=== PATIENT | male | born 1975 | race Caucasian/White ===

== ENCOUNTER → 2018-11-17 | Outpatient (CLI) | payer BC ==
[~2018-11-17] MED LIST: ALOG1TAB8 PO; ASPI81TA61 PO; EMPA1TAB7 PO; GLIM2TAB2 PO; GLIM4TAB2 PO; METF100010 PO; PHEN37.53 PO
--- NOTE | 2018-11-17 11:15 | DIREP ---
PROCEDURE:XRAY SPINE LUMBAR 2-3 VWS COMPARISON:None. INDICATIONS:LOW BACK PAIN W/ SCIATICA ON RIGHT SIDE TECHNIQUE:AP, lateral, and coned down lateral views of the lumbar spine are provided. FINDINGS:The frontal view is markedly limited due to abnormal exposure. ALIGNMENT:Normal. VERTEBRAE:Normal. DISK SPACES:Mild loss of disc height at L5-S1. SPONDYLOLISTHESIS:None. SACROILIAC JOINTS:Normal. OTHER:Vascular calcifications are present CONCLUSION:Limited study due to abnormally exposed frontal view, without acute abnormality appreciated. Dictated by: Maurilio Iyer M.D. on 11/17/2018 at 11:13 AM
== END | disposition home or self-care (01) ==
LOC: RAD 10:03
PROVIDERS: ATTEND Internal Medicine
DX: M54.41 Lumbago with sciatica, right side (principal); M54.16 Radiculopathy, lumbar region
CPT/HCPCS: 72100

== ENCOUNTER 2018-12-17 05:07 | Emergency (ER) | payer OTHER ==
[~2018-12-17] VITALS: Ht 165.1 cm; Wt 159.9 kg
[2018-12-17 05:07] VITALS: BP 129/77
[~2018-12-17 05:07] MED LIST changes: -GLIM2TAB2 PO; +GLIM2TAB3 PO; -GLIM4TAB2 PO; +GLIM4TAB4 PO
--- NOTE | 2018-12-17 05:15 | NUR ---
ARRIVAL: 43 YEAR OLD MALE AMBULATES INTO ER C/O RIGHT THIGH PAIN FOR A MONTH. DR ZIMMERMAN TOLD HIM TO COME FOR AN XRAY.
[2018-12-17] MEDS ORDERED: LISI1TAB23 PO (05:40)
[2018-12-17] MEDS ORDERED: GABA600T7 PO (05:40)
[2018-12-17 06:06] VITALS: BP 138/80
[2018-12-17] MEDS ORDERED: TORADOL IM STA (06:17)
[2018-12-17] MEDS ORDERED: TORADOL ONE (06:19)
--- NOTE | 2018-12-17 06:26 | ER.PDOC ---
General Chief Complaint: Extremities Stated Complaint: LEG PAIN Time seen by MD: 06:18 Source: patient Exam Limitations: no limitations History of Present Illness Initial Comments Right thigh pain for 1 Month. No fall or injury. He told me that he saw his PCP DR. Arellano who ordered a doppler which showed some arterial occlusion. He was told he needed to see a Staining Machine Operator to have an intervention but he does not have money. He is requesting pain medicine. Severity: moderate Exacerbated By: nothing Relieved By: nothing Prior symptoms/Treatment: Similar symptoms previous, Recenly Seen, Treated by Doctor Allergies: Coded Allergies: No Known Allergies (Unverified , 04/03/16) Home Meds Reported Medications Lisinopril/Hydrochlorothiazide (LISINOPRIL-HCTZ 10-12.5 MG TAB) 1 Each Tablet, 1 TAB PO DAILY, #30 TAB 5 Refills 12/17/18 Gabapentin (GABAPENTIN) 600 Mg Tablet, 600 MG PO BID, TAB 12/17/18 Empagliflozin/Metformin HCl (Synjardy 12.5-1,000 mg Tablet) 1 Each Tablet, 1 EACH PO DAILY24, TABLET 09/14/18 Phentermine Hcl (PHENTERMINE HCL) 37.5 Mg Capsule, 37.5 MG PO DAILY24, CAPSULE 09/14/18 Metformin Hcl (METFORMIN HCL ER) 1,000 Mg Tab.er.24, 1 TAB PO BID, #90 TAB 1 Refill 12/28/17 Glimepiride (GLIMEPIRIDE) 4 Mg Tablet, 1 TAB PO BID, #180 TAB 1 Refill 12/28/17 Past Medical History Medical History: diabetes Surgical History: appendectomy LMP (females 10-50): N/A Not applicalbe Social History Smoking: non-smoker Alcohol Use: none Drug Use: none Review of Systems Constitutional: no symptoms reported Respiratory: no symptoms reported Cardiovascular: no symptoms reported Gastrointestinal: no symptoms reported Musculoskeletal: see HPI All Other Systems: Reviewed and Negative Physical Exam General Appearance: Alert, No Apparent Distress, Other (Obese) Lower Extremity: tenderness (lateral right thigh, no redness, swelling or erytherma) Joint Exam: joints nml, nml ROM, nml gait/weight bearing Vascular: no vascular compromise, pulses full/equal Neuro/Psych: sensation nml, motor nml, oriented x3, CN's nml as tested, mood/affect nml Skin: color nml, warm/dry, no rash Back/Neck: nml inspection Respiratory: no resp distress, breath sounds nml CVS: reg rate & rhythm, heart sounds nml Abdomen: non-tender, no organomegaly, no bruit/mass Results/Orders Results/Orders Orders - RUSTY BYERS MD Ketorolac Tromethamine (Toradol) (12/17/18 06:17) Vital Signs Date Time Temp Pulse Resp B/P (MAP) Pulse Ox O2 Delivery O2 Flow Rate FiO2 12/17/18 06:06 85 18 138/80 (99) 97 Room Air 12/17/18 05:07 98.0 81 18 12/17/18 05:07 98.0 81 18 99 Room Air 12/17/18 05:07 98.0 81 18 129/77 (94) 99 Room Air Progress Progress I was going to order a Venous doppler but he declined stating that he had a Sonogram of RLE done a Month ago and is looking for Money to see a Staining Machine Operator as recommended by his PCP. Departure Time of Disposition: 06:26 Disposition: 01 HOME, SELF-CARE Impression: Primary Impression: Right thigh pain Condition: Stable Referrals: LOW ARELLANO MD (PCP) PRIMARY CARE PROVIDER Additional Instructions: Ibuprofen F/U with your PCP in 1-2 days Duration or Time Spent with Pa: 30 mins RUSTY BYERS MD Dec 17, 2018 06:26
[2018-12-17 06:29] VITALS: BP 124/74
== END 2018-12-17 06:30 | disposition home or self-care (01) ==
LOC: ER 05:07
DX: M79.651 Pain in right thigh (principal); E11.9 Type 2 diabetes mellitus without complications; Z79.899 Other long term (current) drug therapy; Z90.49 Acquired absence of other specified parts of digestive tract
CPT/HCPCS: 96372; 99283; J1885

== ENCOUNTER → 2019-01-29 | Outpatient (CLI) | payer OTHER ==
[~2019-01-29] MED LIST changes: +GABA600T7 PO; +LISI1TAB23 PO
--- NOTE | 2019-01-29 14:43 | DIREP ---
PROCEDURE:XR SPINE CERVICAL COMP W/ OBLIQUES COMPARISON:[facility], CR, XRAY NECK SOFT TISSUE, 09/14/2018, 01:49 AM. [facility], CT, CT SOFT TISSUE NECK W/O, 09/13/2018, 10:41 PM. INDICATIONS:Radiculopathy, cervical region TECHNIQUE:AP, lateral, bilateral oblique, and dens views of the cervical spine are provided. FINDINGS: ALIGNMENT:Loss of the cervical lordosis. VERTEBRAE:Normal. DISK SPACES:Normal. CERVICAL RIBS:None. OTHER:Normal. CONCLUSION:Loss of cervical lordosis. Otherwise normal examination. Dictated by: Carmelo Coleman M.D. on 01/29/2019 at 02:40 PM
--- NOTE | 2019-01-29 14:46 | DIREP ---
PROCEDURE:XRAY SPINE THORACIC 3 VWS COMPARISON:[facility], CR, CHEST 2 VIEW, 07/23/2013, 02:05 PM. INDICATIONS:Pain in thoracic spine TECHNIQUE:AP & lateral views of the thoracic spine and a swimmer's view of the cervicothoracic junction are provided. FINDINGS: ALIGNMENT:Normal. VERTEBRAE:Normal. DISK SPACES:Mild disc space narrowing and small anterior osteophytes present in the lower thoracic spine. OTHER:Normal. CONCLUSION:No acute thoracic spine abnormalities. Mild DDD and spondylosis. Dictated by: Carmelo Coleman M.D. on 01/29/2019 at 02:44 PM
== END | disposition home or self-care (01) ==
LOC: RAD 12:40
PROVIDERS: ATTEND Internal Medicine
DX: M51.14 Intervertebral disc disorders with radiculopathy, thoracic region (principal); M47.24 Other spondylosis with radiculopathy, thoracic region; M40.50 Lordosis, unspecified, site unspecified
CPT/HCPCS: 72050; 72072

== ENCOUNTER → 2019-02-19 | Outpatient (CLI) | payer OTHER ==
--- NOTE | 2019-02-19 14:48 | DIREP ---
PROCEDURE:US ANKLE BRACHIAL INDEX COMPARISON:[facility], US, US ANKLE BRACHIAL INDEX, 12/21/2016, 03:49 PM. INDICATIONS:PAD TECHNIQUE:A color duplex Doppler ultrasound examination of the bilateral lower extremities was performed. Color image and bidirectional spectral Doppler wave form analysis, and peak systolic flow measurements of the posterior tibial and dorsalis pedis arteries were performed. FINDINGS: RIGHT LOWER EXTREMITY: CROW DP: 1.1. PT: 1.2. POSTERIOR TIBIAL:112.2 cm/sMonophasic DORSALIS PEDIS:91.5 cm/sTriphasic LEFT LOWER EXTREMITY: CROW DP: 1.1. PT: 1.0. POSTERIOR TIBIAL:124.8 cm/sTriphasic DORSALIS PEDIS:75.0 cm/sTriphasic CONCLUSION:Normal ankle brachial indices. ABIs greater than 1.4 indicate noncompressible vessels, likely to have significant peripheral vascular disease (PVD). ABIs of 0.91 to 1.3 indicate no significant obstructive disease. ABIs of 0.41 to 0.90 indicate grade I claudication. ABIs less than 0.4 indicate limb-threatening ischemia of grade I or grade II. Dictated by: CIARRA Physician on 02/19/2019 at 02:11 PM
== END | disposition home or self-care (01) ==
LOC: RAD 02-02 15:19
PROVIDERS: ATTEND Internal Medicine
DX: I73.9 Peripheral vascular disease, unspecified (principal)
CPT/HCPCS: 93922

== ENCOUNTER 2019-11-22 17:39 | Emergency (ER) | payer BC, OTHER ==
[~2019-11-22] VITALS: Ht 167.6 cm; Wt 154.7 kg
[2019-11-22 17:39] VITALS: BP 175/88
[~2019-11-22 17:39] MED LIST changes: -GLIM2TAB3 PO; +GLIM2TAB7 PO; -GLIM4TAB4 PO; +GLIM4TAB8 PO
--- NOTE | 2019-11-22 17:53 | PCM.EKG ---
[facility] Test Date: 2019-11-22 Test Time: 17:36:09 Pat Name: KAYDEN SOSA Department: Room: Gender: M Fitness Trainer: LILLY : 1975 Requested By: JOHNNY ESCALANTE Order Number: [id number] Reading MD: Measurements Intervals [place] Rate: 86 P: 47 MN: 175 QRS: 71 QRSD: 89 T: 45 QT: 346 QTc: 414 Interpretive Statements Sinus rhythm Compared to ECG 12/28/2017 14:48:22 No significant changes Please click the below link to view image of tracing.
--- NOTE | 2019-11-22 17:58 | ER.PDOC ---
General Chief Complaint: Requesting Medical Care Stated Complaint: DIZZINESS, CHEST PAINS, SOB, NAUSEA Time seen by MD: 19:00 Source: patient Exam Limitations: no limitations History of Present Illness Occurred: just prior to arrival Severity: mild Associated Symptoms: sense of movement, spinning Decreased Ability to Stand: off balance Usually: walks w/o assistance Allergies: Coded Allergies: No Known Allergies (Unverified , 04/03/16) Home Meds Reported Medications Lisinopril/Hydrochlorothiazide (LISINOPRIL-HCTZ 10-12.5 MG TAB) 1 Each Tablet, 1 TAB PO DAILY, #30 TAB 5 Refills 12/17/18 Gabapentin (GABAPENTIN) 600 Mg Tablet, 600 MG PO BID, TAB 12/17/18 Empagliflozin/Metformin HCl (Synjardy 12.5-1,000 mg Tablet) 1 Each Tablet, 1 EACH PO DAILY24, TABLET 09/14/18 Phentermine Hcl (PHENTERMINE HCL) 37.5 Mg Capsule, 37.5 MG PO DAILY24, CAPSULE 09/14/18 Metformin Hcl (METFORMIN HCL ER) 1,000 Mg Tab.er.24, 1 TAB PO BID, #90 TAB 1 Refill 12/28/17 Glimepiride (GLIMEPIRIDE) 4 Mg Tablet, 1 TAB PO BID, #180 TAB 1 Refill 12/28/17 Past Medical History Medical History: diabetes Surgical History: appendectomy Social History Drug Use: none Review of Systems All Other Systems: Reviewed and Negative Physical Exam General Appearance: alert, no distress EENT: nml eye inspection, PERRL, no nystagmus, nml ENT inspection, pharynx nml, TM's nml Neck: supple Respiratory: no resp distress, breath sounds nml CVS: reg rate & rhythm, heart sounds.nml Abdomen: non-tender, no organomegaly, no distention Skin: color nml, no rash, warm/dry Extremities: non-tender, nml ROM, no pedal edema Neuro/Psych: nml orientation, nml speech/cognition, nml mood/affect Cranial Nerves: nml as tested, no evidence of acute CVA Cerebellar: nml as tested Sensorimotor: nml motor, nml sensation Results/Orders Results/Orders Orders - LANETTE HARVEY DO Meclizine Hcl (Antivert) (11/22/19 19:05) Vital Signs Date Time Temp Pulse Resp B/P (MAP) Pulse Ox O2 Delivery O2 Flow Rate FiO2 11/22/19 19:35 67 20 133/63 (86) 96 Room Air 11/22/19 17:39 98.6 89 20 11/22/19 17:39 98.6 89 18 98 11/22/19 17:39 98.6 89 20 175/88 (117) 98 Room Air Administered Medications Medications (Trade) Dose Ordered Sig/Sisi Route PRN Reason Start Time Stop Time Status Last Admin Dose Admin Meclizine HCl (Antivert) 25 mg STAT STAT PO 11/22/19 17:59 11/22/19 18:00 UNV 11/22/19 18:08 25 MG Meclizine HCl (Antivert) 25 mg STAT STAT PO 11/22/19 19:05 11/22/19 19:06 DC 11/22/19 19:07 25 MG Sodium Chloride 1,000 ml @ 0 mls/hr Q0M ONCE IV 11/22/19 19:00 11/22/19 19:01 UNV 11/22/19 19:00 0 MLS/HR Laboratory Tests Test 11/22/19 17:55 11/22/19 18:10 POC Glucose 232 (70 - 110) H White Blood Count 5.5 10^3/uL (4.5-11.0) Red Blood Count 5.45 10^6/uL (4.50-5.90) Hemoglobin 15.8 g/dL (13.9-16.3) Hematocrit 46.4 % (37.0-53.0) Mean Corpuscular Volume 85.1 fL (78-100) Mean Corpuscular Hemoglobin 29.0 pg (26-34) Mean Corpuscular Hemoglobin Concent 34.1 g/dL (33-36.5) Red Cell Distribution Width 13.1 % (11.5-14.5) Platelet Count 137 10^3/uL (150-400) L Mean Platelet Volume 12.1 fL (7.8-11.0) H Neutrophils (%) (Auto) 59.9 % (41.0-85.0) Lymphocytes (%) (Auto) 28.2 % (24.0-44.0) Monocytes (%) (Auto) 8.6 % (5.0-12.0) Neutrophils # (Auto) 3.3 10^3/uL (1.8-7.7) Lymphocytes # (Auto) 1.55 10^3/uL1 (1.0-4.8) Monocytes # (Auto) 0.5 10^3/uL (0.3-0.8) Absolute Immature Granulocyte (auto 0.04 10^3 u/L (0-2) Absolute Eosinophils (auto) 0.1 10^3/uL (0.0-0.2) Immature Granulocytes % 0.70 % (0.00-0.50) H Eosinophils % 2.4 % (0.0-5.0) Basophils % 0.2 % (0.0-0.2) Basophils # 0.0 10^3/uL (0.0-0.1) Prothrombin Time 10.9 SEC (9.3-11.3) Prothrombin Time INR (Non-Therap) 1.1 Activated Partial Thromboplast Time 21.6 SEC (24.67-30.72) D-Dimer < 0.19 mg/L (0.19-0.49) L Sodium Level 135 mmol/L (132-145) Potassium Level 3.9 mmol/L (3.6-5.2) Chloride Level 100.0 mmol/L (96-109) Carbon Dioxide Level 24.5 mmol/L (20.0-32) Anion Gap 14.4 Blood Urea Nitrogen 12 mg/dL (7-18) Creatinine 0.77 mg/dL (0.59-1.40) Estimated GFR () 132.2 (>/=60) Est GFR (CKD-EPI)(Non-Afr Latvian) 109.3 (>/=60) BUN/Creatinine Ratio 15.0 Glucose Level 266 mg/dL (70-110) H Calcium Level 9.2 mg/dL (8.4-10.5) Total Bilirubin 0.8 mg/dL (0.2-1.0) Aspartate Amino Transferase (AST) 70 U/L (0-35) H Alanine Aminotransferase (ALT) 143 U/L (12-78) H Alkaline Phosphatase 131 U/L (50-136) Total Creatine Kinase 47 U/L (39-308) Creatine Kinase MB 0.7 ng/mL (0.5-3.6) Troponin I < 0.02 ng/mL (0.00-0.05) Pro-B-Type Natriuretic Peptide 17 pg/mL (0-125) Total Protein 7.1 g/dL (6.4-8.2) Albumin 4.1 g/dL (3.4-5.0) Globulin 3.0 Helicobacter pylori Screen NEGATIVE (NEGATIVE) Progress Progress TO DR CANDICE Dowd: assumed care of patient from Dr. Escalante at shift change; all labs return WAL, CXR clear, EKG NSR without STT changes; patient feeling somewhat better after 25 mg Meclizine--we will give an additional 25 mg meclizine and observe for improvement--after second dose of meclizine, patient ambulates without difficulty or c/o vertigo ER DEPART Departure Time of Disposition: 19:42 Disposition: 01 HOME, SELF-CARE Impression: Primary Impression: Benign positional vertigo Condition: Improved Patient Instructions: Benign Positional Vertigo Referrals: LOW ZIMMERMAN MD (PCP) PRIMARY CARE PROVIDER Additional Instructions: Take meclizine as prescribed for vertigo symptoms. Follow up with your doctor next week for reevaluation. Return to ER for any emergent concerns. Duration or Time Spent with Pa: 20 min Problem Qualifiers Primary Impression: Benign positional vertigo Laterality: unspecified laterality Qualified Codes: H81.10 - Benign paroxysmal vertigo, unspecified ear JOHNNY ESCALANTE MD Nov 22, 2019 17:58 LANETTE HARVEY DO Nov 22, 2019 19:09
[2019-11-22] MEDS ORDERED: ANTIVERT PO STA ×2 (17:59→19:05)
[2019-11-22] MEDS ORDERED: ANTIVERT ONE ×2 (18:05→19:05)
[2019-11-22 18:17] LABS: BASOPHIL % 0.2 % (0.0-0.2); EOSINOPHIL # 0.1 10^3/uL (0.0-0.2); EOSINOPHIL % 2.4 % (0.0-5.0); LYMPHOCYTES # 1.55 10^3/uL1 (1.0-4.8); LYMPHOCYTES % 28.2 % (24.0-44.0); MONOCYTES # 0.5 10^3/uL (0.3-0.8); MONOCYTES % 8.6 % (5.0-12.0); NEUTROPHIL # 3.3 10^3/uL (1.8-7.7); NEUTROPHILS % 59.9 % (41.0-85.0); PLATELET COUNT 137 10^3/uL (150-400); RED CELL DISTRIBUTION WIDTH 13.1 % (11.5-14.5)
--- NOTE | 2019-11-22 18:17 | NUR ---
STATUS DURING TRIAGE PT STATES HE CHECKED HIS BLOOD SUGAR 3-4 DAYS AGO AND IT WAS IN THE 300'S. STATES HE HAD QUIT TAKING ALL DM MEDS SO HE STARTED TAKING THEM AGAIN 3-4 DAYS AGO AND HAS NOT CHECKED HIS BLOOD SUGAR SINCE. FINGER STICK IS 232. HE ALSO IS NO LONGER TAKING BLOOD PRESSURE MEDS BECAUSE HE RAN OUT AND HAS NOT BEEN TO DR ZIMMERMAN'S TO GET REFILLS.
--- NOTE | 2019-11-22 18:23 | DIREP ---
PROCEDURE:CHEST 1 VIEW COMPARISON:[facility], CR, XRAY CHEST SINGLE VW, 12/28/2017, 02:17 PM. INDICATIONS:chest pain FINDINGS: LUNGS/PLEURA:No significant pulmonary parenchymal abnormalities. No effusions. VASCULATURE:Normal. Unremarkable pulmonary vasculature. CARDIAC:Normal. No cardiac silhouette abnormality or cardiomegaly. MEDIASTINUM:Normal. No visible mass or adenopathy. BONES:Normal. No fracture or visible bony lesion. OTHER:Negative. CONCLUSION:No acute cardiopulmonary disease is seen or significant interval change. Dictated by: Bassam Steele M.D. on 11/22/2019 at 06:21 PM
[2019-11-22] MEDS ORDERED: NS 1000ML 1,000 ML ONE (18:32)
--- NOTE | 2019-11-22 18:40 | NUR ---
NS PER VERBAL ORDER FROM DR. ESCALANTE, 1L NS WIDE OPEN STARTED AT THIS TIME.
[2019-11-22 18:48] LABS: ALANINE AMINOTRANSFERASE(ML) 143 U/L (12-78); ALKALINE PHOSPHATASE 131 U/L (50-136); ASPARTATE AMINO TRANSFERASE 70 U/L (0-35); CALCIUM 9.2 mg/dL (8.4-10.5); CARBON DIOXIDE 24.5 mmol/L (20.0-32); GLUCOSE 266 mg/dL (70-110)
[2019-11-22] MEDS ORDERED: NS 1000ML 1,000 ML IV ONE (19:00)
[2019-11-22 19:35] VITALS: BP 133/63
--- NOTE | 2019-11-22 19:43 | NUR ---
IV DC'D AT THIS TIME. CATHETER TIP INTACT.
== END 2019-11-22 19:49 | disposition home or self-care (01) ==
LOC: ER 17:39
DX: H81.10 Benign paroxysmal vertigo, unspecified ear (principal); R79.1 Abnormal coagulation profile
CPT/HCPCS: 36415; 71045; 80053; 82550; 82553; 82948; 83880; 84484; 85025; 85379; 85610; 85730; 86677; 93005; 96360; 99285; J7030; J8597

== ENCOUNTER 2019-12-28 11:45 | Emergency (ER) | payer BC ==
[~2019-12-28] VITALS: Ht 165.1 cm; Wt 155.1 kg
[2019-12-28 11:48] VITALS: BP 135/77
[2019-12-28 12:02] VITALS: BP 135/77
--- NOTE | 2019-12-28 12:13 | ER.PDOC ---
General Chief Complaint: Earache Stated Complaint: EAR PAIN Time seen by MD: 12:07 Source: patient Exam Limitations: no limitations History of Present Illness Initial Comments Patient c/o 3 day history of pain with drainage from right ear. Hearing is somewhat muffled. Timing/Duration: gradual Severity: moderate Location of Pain: (R) Ear Associated Symptoms: aching earache Allergies: Coded Allergies: No Known Allergies (Unverified , 04/03/16) Home Meds Reported Medications Lisinopril/Hydrochlorothiazide (LISINOPRIL-HCTZ 10-12.5 MG TAB) 1 Each Tablet, 1 TAB PO DAILY, #30 TAB 5 Refills 12/17/18 Gabapentin (GABAPENTIN) 600 Mg Tablet, 600 MG PO BID, TAB 12/17/18 Empagliflozin/Metformin HCl (Synjardy 12.5-1,000 mg Tablet) 1 Each Tablet, 1 EACH PO DAILY24, TABLET 09/14/18 Phentermine Hcl (PHENTERMINE HCL) 37.5 Mg Capsule, 37.5 MG PO DAILY24, CAPSULE 09/14/18 Metformin Hcl (METFORMIN HCL ER) 1,000 Mg Tab.er.24, 1 TAB PO BID, #90 TAB 1 Refill 12/28/17 Glimepiride (GLIMEPIRIDE) 4 Mg Tablet, 1 TAB PO BID, #180 TAB 1 Refill 12/28/17 Past Medical History Medical History: no pertinent history, diabetes Surgical History: appendectomy Family History Significant Family History: no pertinent family hx Social History Smoking: non-smoker Alcohol Use: none Drug Use: none Constitutional: no symptoms reported Eyes: no symptoms reported Ears: see HPI, clear discharge (right ear), other (muffled hearing) Nose: no symptoms reported Mouth: no symptoms reported Throat: no symptoms reported Respiratory: no symptoms reported Cardiovascular: no symptoms reported Gastrointestinal: no symptoms reported Musculoskeletal: no symptoms reported Skin: no symptoms reported Neurological: no symptoms reported Hematologic/Lymphatic: no symptoms reported Immunological/Allergic: no symptoms reported All Other Systems: Reviewed and Negative Physical Exam General Appearance: alert, no distress Ears: pain w/movement aucricle, (R) canal swelling TM's: nml (scar tissue bilateral TMs) Mouth/Throat: lips/gums nml, pharynx nml Nose: nml inspection Head/Neck: atraumatic, neck nml inspection Eyes: eyes nml inspection, PERRL, no nystagmus Resp/CVS: no resp distress, lungs clear, heart sounds nml, reg. rate & rhythm Abdomen: non-tender, no organomegaly Skin Exam: Normal Color, Warm/Dry NEURO/PSYCH: oriented X3, mood/effect nml Results/Orders Results/Orders Vital Signs Date Time Temp Pulse Resp B/P (MAP) Pulse Ox O2 Delivery O2 Flow Rate FiO2 12/28/19 12:02 98.2 84 18 135/77 (96) 98 Room Air 12/28/19 11:48 98.2 84 20 12/28/19 11:48 98.2 84 18 ER DEPART Departure Time of Disposition: 12:09 Disposition: 01 HOME, SELF-CARE Impression: Primary Impression: Otitis externa Condition: Stable Patient Instructions: Otitis Externa Referrals: LOW ZIMMERMAN MD (PCP) PRIMARY CARE PROVIDER Additional Instructions: Return to ER for any emergent concerns. Follow up with your doctor next week for reevaluation. Take antibiotics as prescribed until all gone. Duration or Time Spent with Pa: 10 min Problem Qualifiers Primary Impression: Otitis externa Otitis externa type: swimmer's ear Chronicity: acute Laterality: right Qualified Codes: H60.331 - Swimmer's ear, right ear LANETTE HARVEY DO Dec 28, 2019 12:13
== END 2019-12-28 12:26 | disposition home or self-care (01) ==
LOC: ER 11:45
DX: H60.331 Swimmer's ear, right ear (principal); Z79.84 Long term (current) use of oral hypoglycemic drugs; Z79.899 Other long term (current) drug therapy
CPT/HCPCS: 99281

== ENCOUNTER → 2020-06-22 | Outpatient (CLI) | payer BC ==
--- NOTE | 2020-06-22 11:35 | DIREP ---
PROCEDURE:CT CHEST WITH CONTRAST COMPARISON:None. INDICATIONS:R06.02 SHORTNESS OF BREATH TECHNIQUE:Helical sections through the chest were performed from the lung apices through the diaphragms without IV contrast. Sagittal and coronal reconstructions are obtained from source images. FINDINGS: LUNGS:Suspected developing infiltrate in the anterior left upper lobe. Pulmonary infarct is a differential consideration. Mild atelectasis in the right upper lobe.. No visible pulmonary disease. PLEURA:Normal. No mass or effusion. CARDIAC:Normal. No enlargement, pericardial thickening, or significant calcification. MEDIASTINUM:Normal. No mass or adenopathy. ЕКАТЕРИНА:Normal. No mass or adenopathy. AORTA:Normal. No aneurysm. CHEST WALL:Normal. No mass or axillary adenopathy. LIMITED ABDOMEN:Normal. Limited images of the upper abdomen are unremarkable. BONES:Normal. No bony lesion or fracture. OTHER:Limited opacification of the pulmonary arteries. No central pulmonary embolus. CONCLUSION:Suspected developing infiltrate in the anterior left upper lobe. Pulmonary infarction is a less likely differential consideration. No central pulmonary embolus. Dictated by: Ismael Pearson DO on 06/22/2020 at 11:23 AM
== END | disposition home or self-care (01) ==
LOC: RAD 09:21
PROVIDERS: ATTEND Nurse Practitioner Family
DX: J98.11 Atelectasis (principal)
CPT/HCPCS: 71260; Q9967

== ENCOUNTER 2021-03-20 14:30 | Emergency (ER) | payer BC ==
[~2021-03-20] VITALS: Ht 177.8 cm; Wt 149.7 kg
[~2021-03-20 14:30] MED LIST changes: -LISI1TAB23 PO; +LISI1TAB37 PO
[2021-03-20 15:10] VITALS: BP 151/80
[2021-03-20 15:43] VITALS: BP 151/80
[2021-03-20] MEDS ORDERED: PREDNISONE PO STA (15:54)
[2021-03-20] MEDS ORDERED: NORCO 10MG PO STA (15:54)
[2021-03-20] MEDS ORDERED: DECADRON IH STA (15:54)
[2021-03-20] MEDS ORDERED: DUO 0.5-3(2.5) MG/3 ML IH STA (15:54)
[2021-03-20] MEDS ORDERED: NORCO 10MG PO ONE (16:05)
[2021-03-20] MEDS ORDERED: DUO 0.5-3(2.5) MG/3 ML IH ONE (16:06)
[2021-03-20] MEDS ORDERED: DECADRON ONE (16:06)
[2021-03-20] MEDS ORDERED: PREDNISONE ONE (16:07)
--- NOTE | 2021-03-20 16:12 | ER.PDOC ---
General Chief Complaint: General Complaint Stated Complaint: COUGH,FEVER,SOB Time seen by MD: 16:00 Source: patient Exam Limitations: no limitations History of Present Illness Timing/Duration: 1 week Severity: moderate Activities at Onset: activity/exertion, rest Allergies: Coded Allergies: No Known Allergies (Unverified , 04/03/16) Home Meds Reported Medications Lisinopril/Hydrochlorothiazide (LISINOPRIL-HCTZ 10-12.5 MG TAB) 1 Each Tablet, 1 TAB PO DAILY, #30 TAB 5 Refills 12/17/18 Gabapentin (GABAPENTIN) 600 Mg Tablet, 600 MG PO BID, TAB 12/17/18 Empagliflozin/Metformin HCl (Synjardy 12.5-1,000 mg Tablet) 1 Each Tablet, 1 EACH PO DAILY24, TABLET 09/14/18 Phentermine Hcl (PHENTERMINE HCL) 37.5 Mg Capsule, 37.5 MG PO DAILY24, CAPSULE 09/14/18 Metformin Hcl (METFORMIN HCL ER) 1,000 Mg Tab.er.24, 1 TAB PO BID, #90 TAB 1 Refill 12/28/17 Glimepiride (GLIMEPIRIDE) 4 Mg Tablet, 1 TAB PO BID, #180 TAB 1 Refill 12/28/17 Past Medical History Medical History: diabetes, hypertension Surgical History: appendectomy Social History Alcohol Use: rarely Drug Use: none Reviewed Nursing Reviewed: Vital Signs, Abn. Noted Review of Systems All Other Systems: Reviewed and Negative Physical Exam General Appearance: No Apparent Distress, WD/WN HEENT: PERRL/EOMI, Normal ENT Inspection, TMs Normal, Pharynx Normal Neck: Non-Tender, Full Range of Motion, Supple, Normal Inspection Respiratory: rhonchi Cardiovascular: Normal Peripheral Pulses, Regular Rate, Rhythm, No Edema, No Gallop, No JVD, No Murmur Gastrointestinal: Normal Bowel Sounds, No Organomegaly, No Pulsatile Mass, Non Tender, Soft Extremities: Normal Range of Motion, Non-Tender, Normal Inspection, No Pedal Edema, No Calf Tenderness, Normal Capillary Refill 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, No Motor/Sensory Deficits, Alert, Normal Mood/Affect, Oriented x 3 Skin: Normal Color, Warm/Dry Lymphatic: No Adenopathy Results/Orders Results/Orders Vital Signs Date Time Temp Pulse Resp B/P (MAP) Pulse Ox O2 Delivery O2 Flow Rate FiO2 03/20/21 16:14 115 20 96 03/20/21 16:13 108 24 94 03/20/21 15:43 98.9 113 24 151/80 (103) 94 Room Air 03/20/21 15:10 98.9 113 24 03/20/21 15:10 98.9 113 24 94 Administered Medications Medications (Trade) Dose Ordered Sig/Sisi Route PRN Reason Start Time Stop Time Status Last Admin Dose Admin Acetaminophen/ Hydrocodone Bitart ([place] 10mg) 1 each STAT STAT PO 03/20/21 15:54 03/20/21 16:00 DC 03/20/21 16:10 1 EACH Albuterol/ Ipratropium (Duo 0.5-3(2.5) Mg/3 ml) 3 ml STAT STAT IH 03/20/21 15:54 03/20/21 16:00 DC 03/20/21 15:54 3 ML Prednisone (Prednisone) 20 mg STAT STAT PO 03/20/21 15:54 03/20/21 16:00 DC 03/20/21 16:11 20 MG Laboratory Tests Test 03/20/21 14:16 03/20/21 15:36 White Blood Count 8.0 10^3/uL (4.5-11.0) Red Blood Count 5.29 10^6/uL (4.50-5.90) Hemoglobin 14.9 g/dL (13.9-16.3) Hematocrit 47.1 % (37.0-53.0) Mean Corpuscular Volume 89.0 fL (78-100) Mean Corpuscular Hemoglobin 28.2 pg (26-34) Mean Corpuscular Hemoglobin Concent 31.6 g/dL (33-36.5) L Red Cell Distribution Width 13.4 % (11.5-14.5) Platelet Count 154 10^3/uL (150-400) Mean Platelet Volume 10.5 fL (7.8-11.0) Neutrophils (%) (Auto) 74.6 % (41.0-85.0) Lymphocytes (%) (Auto) 13.9 % (24.0-44.0) L Monocytes (%) (Auto) 9.0 % (5.0-12.0) Neutrophils # (Auto) 6.0 10^3/uL (1.8-7.7) Lymphocytes # (Auto) 1.11 10^3/uL1 (1.0-4.8) Monocytes # (Auto) 0.7 10^3/uL (0.3-0.8) Absolute Immature Granulocyte (auto 0.07 10^3 u/L (0-2) Absolute Eosinophils (auto) 0.1 10^3/uL (0.0-0.2) Immature Granulocytes % 0.90 % (0.00-0.50) H Eosinophils % 1.5 % (0.0-5.0) Basophils % 0.1 % (0.0-0.2) Basophils # 0.0 10^3/uL (0.0-0.1) Prothrombin Time 10.5 SEC (9.6-12.0) Prothrombin Time INR (Non-Therap) 1.0 Activated Partial Thromboplast Time 23.4 SEC (24.67-30.72) D-Dimer 0.35 mg/L (0.19-0.49) Sodium Level 135 mmol/L (132-145) Potassium Level 3.8 mmol/L (3.6-5.2) Chloride Level 98.0 mmol/L (96-109) Carbon Dioxide Level 24.5 mmol/L (20.0-32) Anion Gap 16.3 Blood Urea Nitrogen 17 mg/dL (7-18) Creatinine 0.77 mg/dL (0.59-1.40) Estimated GFR () 131.6 (>/=60) Est GFR (CKD-EPI)(Non-Afr [place]an) 108.8 (>/=60) BUN/Creatinine Ratio 22.0 Glucose Level 131 mg/dL (70-110) H Calcium Level 8.7 mg/dL (8.4-10.5) Total Bilirubin 0.6 mg/dL (0.2-1.0) Aspartate Amino Transferase (AST) 32 U/L (0-35) Alanine Aminotransferase (ALT) 65 U/L (12-78) Alkaline Phosphatase 88 U/L (50-136) Total Creatine Kinase 124 U/L (39-308) Creatine Kinase MB < 0.5 ng/mL (0.5-3.6) L Troponin I High Sensitivity 5 ng/L (0-75) Pro-B-Type Natriuretic Peptide 9 pg/mL (0-125) Total Protein 7.5 g/dL (6.4-8.2) Albumin 3.2 g/dL (3.4-5.0) L Globulin 4.3 Albumin/Globulin Ratio 0.744 Influenza Type A Antigen NEGATIVE (NEG) Influenza Type B Antigen NEGATIVE (NEG) SARS-CoV-2 Antigen (Rapid) POSITIVE (NEGATIVE) *A Progress Progress to dr moore ER DEPART Departure Time of Disposition: 17:45 Disposition: 01 HOME / SELF CARE / HOMELESS Impression: Primary Impression: COVID-19 Additional Impression: Viral syndrome Condition: Stable Referrals: GOVIND IVERSON APRN,KALSOMINER-C (PCP) PRIMARY CARE PROVIDER Duration or Time Spent with Pa: 10 Problem Qualifiers JOHNNY ESCALANTE MD Mar 20, 2021 16:12 BERNARD MOORE MD Mar 20, 2021 17:46
--- NOTE | 2021-03-20 16:27 | PCM.EKG ---
[facility] Test Date: 2021-03-20 Test Time: 16:23:12 Pat Name: KAYDEN SOSA Department: Patient ID: [facility]-[id number] Room: Gender: M Clutch Specialist: LELA : 1975 Requested By: KANG MCMANUS Order Number: [id number] Reading MD: Kang Mcmanus Measurements Intervals [place] Rate: 115 P: 26 VT: 161 QRS: 59 QRSD: 84 T: 6 QT: 299 QTc: 414 Interpretive Statements Sinus tachycardia Compared to ECG 11/22/2019 17:36:09 Sinus rhythm no longer present Electronically Signed On 03-21-2021 4:00:15 LOAN OPERATIONS MANAGER by Kang Mcmanus Please click the below link to view image of tracing.
--- NOTE | 2021-03-20 16:32 | DIREP ---
PROCEDURE:CHEST 1 VIEW COMPARISON:[facility], CT, CT CHEST W/CONTRAST, 06/22/2020, 10:08 AM. [facility], CR, XRAY CHEST SINGLE VW, 11/22/2019, 05:50 PM. INDICATIONS:Chest pain FINDINGS: LUNGS/PLEURA:Scarring in the left upper lobe. No other significant pulmonary parenchymal abnormalities. No effusions. VASCULATURE:Normal. Unremarkable pulmonary vasculature. CARDIAC:Normal. No cardiac silhouette abnormality or cardiomegaly. MEDIASTINUM:Normal. No visible mass or adenopathy. BONES:Normal. No fracture or visible bony lesion. OTHER:Negative. CONCLUSION:No acute cardiopulmonary abnormalities. Scarring in the left upper lobe. Dictated by: Carmelo Coleman M.D. on 03/20/2021 at 04:29 PM
[2021-03-20 16:52] LABS: BASOPHIL % 0.1 % (0.0-0.2); EOSINOPHIL # 0.1 10^3/uL (0.0-0.2); EOSINOPHIL % 1.5 % (0.0-5.0); LYMPHOCYTES # 1.11 10^3/uL1 (1.0-4.8); LYMPHOCYTES % 13.9 % (24.0-44.0); MEAN CORP HGB 28.2 pg (26-34); MONOCYTES # 0.7 10^3/uL (0.3-0.8); NEUTROPHILS % 74.6 % (41.0-85.0); PLATELET COUNT 154 10^3/uL (150-400); RED CELL DISTRIBUTION WIDTH 13.4 % (11.5-14.5)
[2021-03-20 17:25] LABS: CARBON DIOXIDE 24.5 mmol/L (20.0-32); GLUCOSE 131 mg/dL (70-110)
[2021-03-20 18:12] VITALS: BP 143/78
== END 2021-03-20 18:06 | disposition home or self-care (01) ==
LOC: ER 14:30
DX: U07.1 COVID-19 (principal); E11.9 Type 2 diabetes mellitus without complications; I10 Essential (primary) hypertension; Z79.52 Long term (current) use of systemic steroids; Z79.84 Long term (current) use of oral hypoglycemic drugs; Z79.899 Other long term (current) drug therapy; Z90.49 Acquired absence of other specified parts of digestive tract
CPT/HCPCS: 36415; 71045; 80053; 82550; 82553; 83880; 84484; 85025; 85379; 85610; 85730; 87426; 87804 ×2; 93005; 94640; 99284; J1100; J7512

== ENCOUNTER 2021-03-23 13:50 | Inpatient (IN) | payer BC ==
[~2021-03-23] VITALS: Ht 162.6 cm; Wt 151.8 kg
--- NOTE | 2021-03-23 13:59 | NUR ---
Pt amublates to ED rm5. c/o decrease 02 sat at home, worsening sob with bodyaches to lethargy. Tested covid + in this ED on 03/21/19.
[2021-03-23 14:18] VITALS: BP 140/82
[2021-03-23 14:30] LABS: BASOPHIL % 0.1 % (0.0-0.2); EOSINOPHIL # 0.1 10^3/uL (0.0-0.2); LYMPHOCYTES # 0.48 10^3/uL1 (1.0-4.8); LYMPHOCYTES % 5.3 % (24.0-44.0); MEAN CORP HGB 27.9 pg (26-34); MONOCYTES # 0.6 10^3/uL (0.3-0.8); MONOCYTES % 6.4 % (5.0-12.0); NEUTROPHIL # 7.8 10^3/uL (1.8-7.7); NEUTROPHILS % 86.4 % (41.0-85.0); PLATELET COUNT 166 10^3/uL (150-400); RED CELL DISTRIBUTION WIDTH 13.2 % (11.5-14.5)
--- NOTE | 2021-03-23 14:30 | NUR ---
placed oxygen on pt. 2Lnc. 02 sat increase to 91%. has seen pt. orders received.
--- NOTE | 2021-03-23 14:39 | DIREP ---
PROCEDURE:CHEST 1 VIEW COMPARISON:[facility], CR, XRAY CHEST SINGLE VW, 03/20/2021, 04:11 PM. INDICATIONS:hypoxia, covid+ FINDINGS: LUNGS/PLEURA:Patchy bilateral ground-glass infiltrates, right greater than left. This has worsened compared to prior study. No pleural effusion pneumothorax. VASCULATURE:Normal. Unremarkable pulmonary vasculature. CARDIAC:Normal. No cardiac silhouette abnormality or cardiomegaly. MEDIASTINUM:Normal. No visible mass or adenopathy. BONES:Degenerative change without evidence of acute osseus abnormality. OTHER:Negative. CONCLUSION: 1. Findings consistent with multifocal pneumonia, worsened compared to prior study. Commonly reported imaging findings of COVID-19 pneumonia are present. Dictated by: Gary Dee MD on 03/23/2021 at 02:37 PM
[2021-03-23 14:55] LABS: ABG PCO2 29.2 mmHg (35.0-45.0); ABG PH 7.547 (7.350-7.450); BE(B) 3.4 mmol/L (-2.0-2.0); HCO3act 24.8 mmol/L (22.0-26.0); pO2 56.9 mmHg (80.0-100.0)
[2021-03-23 15:06] LABS: CARBON DIOXIDE 26.4 mmol/L (20.0-32)
--- NOTE | 2021-03-23 16:25 | ER.PDOC ---
General Chief Complaint: Requesting Medical Care Stated Complaint: LOW O2/FEVER/CHEST PAIN/COVID + Time seen by MD: 13:48 Source: patient Exam Limitations: no limitations History of Present Illness Initial Comments pt is here with covid hypoxia. He was diagnosed with covid on Saturday and over the last few days has been getting worse on breathing. He is on cpap at night and over the last few days, he is having a hard time keeping up with his breath. OXygen saturation was 84% on bipap at home but now on 2L wiht a saturation of 91-92% Timing/Duration: gradual Severity: moderate Associated Symptoms: fever/chills, runny nose Worsen By: deep breathing Prior symptoms/Treatment: Recenly Seen Allergies: Coded Allergies: No Known Allergies (Unverified , 04/03/16) Home Meds Reported Medications Lisinopril/Hydrochlorothiazide (LISINOPRIL-HCTZ 10-12.5 MG TAB) 1 Each Tablet, 1 TAB PO DAILY, #30 TAB 5 Refills 12/17/18 Gabapentin (GABAPENTIN) 600 Mg Tablet, 600 MG PO BID, TAB 12/17/18 Empagliflozin/Metformin HCl (Synjardy 12.5-1,000 mg Tablet) 1 Each Tablet, 1 EACH PO DAILY24, TABLET 09/14/18 Phentermine Hcl (PHENTERMINE HCL) 37.5 Mg Capsule, 37.5 MG PO DAILY24, CAPSULE 09/14/18 Metformin Hcl (METFORMIN HCL ER) 1,000 Mg Tab.er.24, 1 TAB PO BID, #90 TAB 1 Refill 12/28/17 Glimepiride (GLIMEPIRIDE) 4 Mg Tablet, 1 TAB PO BID, #180 TAB 1 Refill 12/28/17 Constitutional: chills, fever Respiratory: cough Cardiovascular: no symptoms reported Gastrointestinal: no symptoms reported Genitourinary: no symptoms reported Musculoskeletal: no symptoms reported Skin: no symptoms reported Psychiatric/Neurological: no symptoms reported Endocrine: no symptoms reported All Other Systems: Reviewed and Negative Past Medical History Medical History: COPD, diabetes, high cholesterol, hypertension Surgical History: appendectomy Social History Alcohol Use: none Drug Use: none Reviewed Nursing Reviewed: Vital Signs, Abn. Noted, Nursing Assessment Physical Exam General Appearance: alert, moderate distress Eye: eyes nml inspection Nose: nose nml, rhinorrhea Throat: pharynx nml, airway nml Neck: nml inspection, supple Respiratory: respiratory distress Abdomen: non-tender CVS: reg rate & rhythm Extremities: non-tender Results/Orders Results/Orders Orders - CARLOS THACKER MD Arterial Blood Gas (03/23/21 14:02) Cbc With Auto Diff (03/23/21 14:02) Comprehensive Metabolic Panel (03/23/21 14:02) Xr Chest 1v (03/23/21 14:02) Ekg-Routine (03/23/21 14:02) Troponin I High Sensitivity (03/23/21 14:02) Probnp B-Type Accounting Tutor (03/23/21 14:02) Ferritin(Ml) (03/23/21 14:29) D-Dimer (03/23/21 14:59) Vital Signs Date Time Temp Pulse Resp B/P (MAP) Pulse Ox O2 Delivery O2 Flow Rate FiO2 03/23/21 14:18 99.3 101 24 86 Room Air 03/23/21 14:18 99.3 101 24 03/23/21 14:18 99.3 101 24 86 Laboratory Tests Test 03/23/21 14:24 03/23/21 14:43 White Blood Count 9.0 10^3/uL (4.5-11.0) Red Blood Count 5.13 10^6/uL (4.50-5.90) Hemoglobin 14.3 g/dL (13.9-16.3) Hematocrit 46.1 % (37.0-53.0) Mean Corpuscular Volume 89.9 fL (78-100) Mean Corpuscular Hemoglobin 27.9 pg (26-34) Mean Corpuscular Hemoglobin Concent 31.0 g/dL (33-36.5) L Red Cell Distribution Width 13.2 % (11.5-14.5) Platelet Count 166 10^3/uL (150-400) Mean Platelet Volume 11.1 fL (7.8-11.0) H Neutrophils (%) (Auto) 86.4 % (41.0-85.0) H Lymphocytes (%) (Auto) 5.3 % (24.0-44.0) *L Monocytes (%) (Auto) 6.4 % (5.0-12.0) Neutrophils # (Auto) 7.8 10^3/uL (1.8-7.7) H Lymphocytes # (Auto) 0.48 10^3/uL1 (1.0-4.8) L Monocytes # (Auto) 0.6 10^3/uL (0.3-0.8) Absolute Immature Granulocyte (auto 0.07 10^3 u/L (0-2) Absolute Eosinophils (auto) 0.1 10^3/uL (0.0-0.2) Immature Granulocytes % 0.80 % (0.00-0.50) H Eosinophils % 1.0 % (0.0-5.0) Basophils % 0.1 % (0.0-0.2) Basophils # 0.0 10^3/uL (0.0-0.1) D-Dimer 0.50 mg/L (0.19-0.49) H Sodium Level 132 mmol/L (132-145) Potassium Level 4.3 mmol/L (3.6-5.2) Chloride Level 99.0 mmol/L (96-109) Carbon Dioxide Level 26.4 mmol/L (20.0-32) Anion Gap 10.9 Blood Urea Nitrogen 14 mg/dL (7-18) Creatinine 0.80 mg/dL (0.59-1.40) Estimated GFR () 125.9 (>/=60) Est GFR (CKD-EPI)(Non-Afr [place]inean) 104.1 (>/=60) BUN/Creatinine Ratio 17.0 Glucose Level 165 mg/dL (70-110) H Calcium Level 9.0 mg/dL (8.4-10.5) Ferritin 1383 ng/mL (26-388) H Total Bilirubin 0.9 mg/dL (0.2-1.0) Aspartate Amino Transferase (AST) 54 U/L (0-35) H Alanine Aminotransferase (ALT) 86 U/L (12-78) H Alkaline Phosphatase 110 U/L (50-136) Troponin I High Sensitivity 6 ng/L (0-75) Pro-B-Type Natriuretic Peptide 34 pg/mL (0-125) Total Protein 7.7 g/dL (6.4-8.2) Albumin 2.9 g/dL (3.4-5.0) L Globulin 4.8 Albumin/Globulin Ratio 0.604 Blood Gas Sample Site RT BRACIAL ARTERY Blood pH 7.547 (7.350-7.450) Blood Gas PCO2 29.2 mmHg (35.0-45.0) L Blood Gas PO2 56.9 mmHg (80.0-100.0) L Blood Gas HCO3 24.8 mmol/L (22.0-26.0) Blood Gas Base Excess 3.4 mmol/L (-2.0-2.0) H Hemanth Test N/A Arterial Blood Oxygen Saturation 91.2 % (94.0-97.00) L Deoxyhemoglobin 8.7 % (0.0-5.0) H Carboxyhemoglobin 0.8 % (0.0-3.9) Methemoglobin 0.1 % (0.00-5.0) Total Hemoglobin 14.7 % (12.0-17.8) Total Oxygen Concentration 18.7 % (13.5-17.5) H Blood Gas Temperature 37 Oxygen Delivery Method NASAL CANNULA FiO2 28 % (20-101) Total Carbon Dioxide 25.7 mmol/L (23-27) Reason/Comments: discuss case with Dr. Rodriguez and he agrees to admit. REc bipap placement ER DEPART Departure Time of Disposition: 16:20 Disposition: 09 ADMITTED INPATIENT Impression: Primary Impression: COVID Additional Impression: Acute respiratory failure with hypoxia Condition: Critical Referrals: RANDY ARAGON RUG HOOKER (PCP) PRIMARY CARE PROVIDER Duration or Time Spent with Pa: 22 Critical Care Note Total Time (mins): 57 Comments placed on 2L oxygen and then on bipap per hospitalist Problem Qualifiers CARLOS THACKER MD Mar 23, 2021 16:25
[2021-03-23 16:41] LABS: LYMPHOCYTE 11 % (25-36); MONOCYTE 4 % (3-9); SEGMENTED NEUTROPHILS 85 % (31-76)
--- NOTE | 2021-03-23 16:46 | NUR ---
Report given to Marta MUNSON Pt transport to MS floor rm 312 via bed. Addendum: 03/23/21 at 1707 by ARIA Taken to room 312 via wc on 3Lnc. RT transport bipap upon arrival to room [facility]
--- NOTE | 2021-03-23 17:14 | PCM.EKG ---
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
[2021-03-23 18:09] VITALS: BP 134/83
[2021-03-23 20:00] VITALS: BP 136/66
[2021-03-23] MEDS ORDERED: REMDESIVIR (EUA) 200 MG in NS 100ML 100 ML IV SCH (21:00)
[2021-03-23] MEDS: VITAMIN C PO SCH (22:27)
[2021-03-23] MEDS: DEXAMETHASONE 10 MG/ML VIAL IV SCH (22:27)
[2021-03-23] MEDS: LOVENOX SQ SCH (22:28)
[2021-03-23] MEDS: HUMALOG SQ SCH (22:44)
[2021-03-23] MEDS ORDERED: NS 100ML 100 ML IV ONE ×2 (22:46→22:50)
[2021-03-24 00:23] VITALS: BP 97/49
[2021-03-24 04:23] VITALS: BP 120/59
--- NOTE | 2021-03-24 05:02 | NUR ---
Pt requested to transition back to DC for the day. Transition completed per request. tamiko Addendum: 03/24/21 at 0502 by BARBARA WHEATLEY Amended: Links added.
[2021-03-24 05:38] LABS: BASOPHIL % 0.2 % (0.0-0.2); EOSINOPHIL % 0.1 % (0.0-5.0); LYMPHOCYTES # 0.61 10^3/uL1 (1.0-4.8); LYMPHOCYTES % 7.5 % (24.0-44.0); MEAN CORP HGB 28.5 pg (26-34); MONOCYTES # 0.4 10^3/uL (0.3-0.8); MONOCYTES % 4.5 % (5.0-12.0); NEUTROPHIL # 7.1 10^3/uL (1.8-7.7); NEUTROPHILS % 87.7 % (41.0-85.0); PLATELET COUNT 171 10^3/uL (150-400); RED CELL DISTRIBUTION WIDTH 12.9 % (11.5-14.5)
[2021-03-24 07:22] VITALS: BP 139/77
[2021-03-24] MEDS: HUMALOG SQ SCH ×3 (08:00→17:42)
[2021-03-24] MEDS ORDERED: DEXAMETHASONE 10 MG/ML VIAL IV SCH (09:00)
[2021-03-24] MEDS: LASIX IV SCH (09:44)
[2021-03-24] MEDS: DEXAMETHASONE 10 MG/ML VIAL IV SCH (09:44)
[2021-03-24] MEDS: ASPIRIN PO SCH (09:44)
[2021-03-24] MEDS: VITAMIN C PO SCH ×2 (09:44→20:56)
[2021-03-24] MEDS: LANTUS SQ SCH (09:45)
[2021-03-24] MEDS: ZITHROMAX PO SCH (09:45)
[2021-03-24] MEDS: ZINC SULFATE PO SCH (09:45)
--- NOTE | 2021-03-24 11:15 | PCM.HP ---
History of Present Illness Hx of Present Illness Patient is a 45-year-old male obese with medical history of diabetes mellitus type 2 presented to the emergency department with increasing shortness of breath and persistent cough along with generalized weakness, body aches and chills denies any fever. Was recently tested positive for COVID-19 infection and has been doing home remedies but has started to feel very dizzy and weak was seen recently in the emergency department about 4 days ago and discharged home at that time he was not requiring any oxygen. But upon presentation to the emergency department patient was hypoxic requiring oxygen and was therefore placed on oxygen therapy and admitted to the medical floor for further evaluation and management. Travel History EBOLA RISK:Travel to/contact w: No Review of Systems Constitutional: Chills, Weakness, Malaise ENT: Throat pain Respiratory: Cough, Shortness of breath, SOB with excertion Other All other review of systems are negative Allergies: Coded Allergies: No Known Allergies (Unverified , 04/03/16) Scheduled Gabapentin (Gabapentin), 600 MG PO BID, (Reported) Glimepiride (Glimepiride), 1 TAB PO BID, (Reported) Lisinopril/Hydrochlorothiazide (Lisinopril-Hctz 10-12.5 Mg Tab), 1 TAB PO DAILY, (Reported) Metformin Hcl (Metformin Hcl), 1 TAB PO BID, (Reported) Phentermine Hcl (Phentermine Hcl), 37.5 MG PO DAILY24, (Reported) Discontinued Medications Empagliflozin/Metformin HCl (Synjardy 12.5-1,000 mg Tablet), 1 EACH PO DAILY24, (Reported) Discontinued Reason: Discontinue VTE VTE Risk Total Score: 4 VTE Risk Score VTE Risk: Score 0-1 = Low Risk (Aggressive mobilization; early ambulation; no VTE prophylaxis required) Score 2: Moderate Risk (Intermittent/Pneumatic Compression Device OR Lovenox/Heparin/Coumadin) Score 3-4: High Risk (Intermittent/Pneumatic Compression Device AND Lovenox/Heparin/Coumadin) Score > or =5: Highest Risk (Intermittent/Pneumatic Compression Device AND Lovenox/Heparin/Coumadin) VTE VTE Present on Admission: Yes Currently receiving anticoagul: No VTE Risk Total Score: 4 Exam Vital Signs Vital Signs Date Time Temp Pulse Resp B/P (MAP) Pulse Ox O2 Delivery O2 Flow Rate FiO2 03/24/21 09:44 139/77 03/24/21 08:15 87 20 87 Nasal Cannula 4.00 36 03/24/21 07:22 98.9 General Appearance: Alert, Oriented X3, Cooperative HEENT: Atraumatic, PERRLA, EOMI Respiratory: Other (Decreased bilateral lung sounds) Cardiovascular: Regular rate, Normal S1, Normal S2, No murmurs Abdominal: Normal bowel sounds, Soft, No tenderness Extremities: No clubbing, No cyanosis, No edema Skin: No breakdown, No lesions Neuro: Normal gait, Normal speech, Strength at 5/5 X4 ext, Normal tone Psych/Mental Status: Mental status NL, Mood NL Assessment/Plan Assessment/Plan Assessment/Plan COVID-19 infection pneumonia Acute hypoxic respiratory failure Obesity Placing patient at risk of prolonging management and treatment. Diabetes mellitus type 2 Continue with remdesivir Steroid therapy dexamethasone 6 mg daily Zinc sulfate to 20 mg daily Ascorbic acid 500 mg twice daily Aspirin Anticoagulation with Lovenox 40 mg subcutaneous daily Oxygen therapy continue to maintain oxygenation above 92% Patient History: FH: cancer G8 SISTER Hypertension No Family History of: Alzheimer's disease Asthma Cerebrovascular disorder Chronic obstructive pulmonary disease Congestive heart failure Diabetes insipidus Diabetes mellitus Parkinson's disease BERNARD MOORE MD Mar 24, 2021 11:15
[2021-03-24] MEDS ORDERED: NEURONTIN PO SCH (11:30)
[2021-03-24 11:41] VITALS: BP 126/79
[2021-03-24] MEDS ORDERED: NEURONTIN ONE (11:58)
[2021-03-24] MEDS ORDERED: AMARYL PO SCH (14:00)
[2021-03-24] MEDS ORDERED: METF10007 PO (15:19)
[2021-03-24 15:26] VITALS: BP 132/78
[2021-03-24] MEDS ORDERED: GLUCOPHAGE XR PO SCH (17:00)
--- NOTE | 2021-03-24 18:42 | NUR ---
REPORT REPORT GIVEN TO ONCOMING SHIFT. RELINQUISHED CARE FOR PATIENT AT THIS TIME.
[2021-03-24] MEDS ORDERED: NS 250ML 250 ML ONE (20:35)
[2021-03-24 20:45] VITALS: BP 173/87
[2021-03-24] MEDS: REMDESIVIR (EUA) 100 MG in NS 100ML 100 ML IV SCH (20:49)
[2021-03-24] MEDS: GLUCOPHAGE PO SCH (20:55)
[2021-03-24] MEDS: NEURONTIN PO SCH (20:55)
[2021-03-24] MEDS: AMARYL PO SCH (20:55)
[2021-03-24] MEDS: LOVENOX SQ SCH (20:56)
[2021-03-25 00:18] VITALS: BP 172/90
[2021-03-25] MEDS: APRESOLINE IV PRN ×2 (00:21→15:49)
[2021-03-25 04:00] VITALS: BP 164/96
[2021-03-25 07:35] LABS: BASOPHIL % 0.3 % (0.0-0.2); LYMPHOCYTES # 0.93 10^3/uL1 (1.0-4.8); LYMPHOCYTES % 9.8 % (24.0-44.0); MEAN CORP HGB 28.4 pg (26-34); MONOCYTES # 0.8 10^3/uL (0.3-0.8); MONOCYTES % 8.3 % (5.0-12.0); NEUTROPHIL # 7.8 10^3/uL (1.8-7.7); NEUTROPHILS % 81.6 % (41.0-85.0); PLATELET COUNT 215 10^3/uL (150-400); RED CELL DISTRIBUTION WIDTH 12.9 % (11.5-14.5)
[2021-03-25 07:49] LABS: CARBON DIOXIDE 23.2 mmol/L (20.0-32)
[2021-03-25] MEDS: HUMALOG SQ SCH ×3 (08:00→19:41)
[2021-03-25] MEDS: VITAMIN C PO SCH ×2 (08:42→21:04)
[2021-03-25] MEDS: ASPIRIN PO SCH (08:42)
[2021-03-25] MEDS: GLUCOPHAGE PO SCH ×2 (08:42→21:03)
[2021-03-25] MEDS: ZITHROMAX PO SCH (08:43)
[2021-03-25] MEDS: ZESTRIL PO SCH (08:43)
[2021-03-25] MEDS: NEURONTIN PO SCH ×2 (08:43→21:04)
[2021-03-25] MEDS: HYDROCHLOROTHIAZIDE PO SCH (08:43)
[2021-03-25] MEDS: LASIX IV SCH (08:45)
[2021-03-25] MEDS: ZINC SULFATE PO SCH (08:46)
[2021-03-25] MEDS: AMARYL PO SCH ×2 (08:46→21:02)
[2021-03-25] MEDS: DEXAMETHASONE 10 MG/ML VIAL IV SCH (08:46)
[2021-03-25] MEDS: LANTUS SQ SCH (09:00)
[2021-03-25 09:02] LABS: BAND NEUTROPHILS 1 % (2-6); LYMPHOCYTE 12 % (25-36); MONOCYTE 9 % (3-9); SEGMENTED NEUTROPHILS 77 % (31-76)
[2021-03-25] MEDS ORDERED: LANOLIN HYDROUS TP ONE (09:53)
--- NOTE | 2021-03-25 10:23 | PRM.PN ---
Subjective Subjective Date: Mar 25, 2021 Time: 09:30 Subjective Patient who is a 45-year-old obese patient who was admitted for COVID-pneumonia and acute hypoxic respiratory failure. Patient is seen and examined this morning still requiring oxygen therapy. Patient History: FH: cancer G8 SISTER Hypertension No Family History of: Alzheimer's disease Asthma Cerebrovascular disorder Chronic obstructive pulmonary disease Congestive heart failure Diabetes insipidus Diabetes mellitus Parkinson's disease VTE VTE Risk Total Score: 4 VTE Risk Score VTE Risk: Score 0-1 = Low Risk (Aggressive mobilization; early ambulation; no VTE prophylaxis required) Score 2: Moderate Risk (Intermittent/Pneumatic Compression Device OR Lovenox/Heparin/Coumadin) Score 3-4: High Risk (Intermittent/Pneumatic Compression Device AND Lovenox/Heparin/Coumadin) Score > or =5: Highest Risk (Intermittent/Pneumatic Compression Device AND Lovenox/Heparin/Coumadin) Review of Systems Constitutional: Chills, Weakness, Malaise ENT: Throat pain Respiratory: Cough, Shortness of breath, SOB with excertion Allergies: Coded Allergies: No Known Allergies (Unverified , 04/03/16) Scheduled Gabapentin (Gabapentin), 600 MG PO BID, (Reported) Glimepiride (Glimepiride), 1 TAB PO BID, (Reported) Lisinopril/Hydrochlorothiazide (Lisinopril-Hctz 10-12.5 Mg Tab), 1 TAB PO DAILY, (Reported) Metformin Hcl (Metformin Hcl), 1 TAB PO BID, (Reported) Phentermine Hcl (Phentermine Hcl), 37.5 MG PO DAILY24, (Reported) Discontinued Medications Empagliflozin/Metformin HCl (Synjardy 12.5-1,000 mg Tablet), 1 EACH PO DAILY24, (Reported) Discontinued Reason: Discontinue Objective Vitals and I/O Vital Sign - Last 24 Hours 03/25/21 03/25/21 03/25/21 03/25/21 08:43 08:43 08:45 09:43 Temp 98.6 Resp 19 B/P (MAP) 164/96 164/96 164/96 General: Alert, Oriented X3, Cooperative HEENT: Atraumatic, PERRLA, EOMI Lungs: Other (Decreased bilateral lung sounds) Heart: Regular rate, Normal S1, Normal S2, No murmurs Abdomen: Normal bowel sounds, Soft, No tenderness Extremities: No clubbing, No cyanosis, No edema Neuro: Normal gait, Normal speech, Strength at 5/5 X4 ext, Normal tone Psych/Mental Status: Mental status NL, Mood NL All Results(Lab/Rad) Laboratory Tests Test 03/24/21 11:37 03/24/21 16:36 03/24/21 20:54 03/25/21 00:11 Bedside Glucose 244 251 301 252 Test 03/25/21 06:18 03/25/21 06:35 03/25/21 07:37 Bedside Glucose 147 White Blood Count 9.5 10^3/uL Red Blood Count 5.25 10^6/uL Hemoglobin 14.9 g/dL Hematocrit 46.5 % Mean Corpuscular Volume 88.6 fL Mean Corpuscular Hemoglobin 28.4 pg Mean Corpuscular Hemoglobin Concent 32.0 g/dL Red Cell Distribution Width 12.9 % Platelet Count 215 10^3/uL Mean Platelet Volume 11.4 fL Neutrophils (%) (Auto) 81.6 % Lymphocytes (%) (Auto) 9.8 % Monocytes (%) (Auto) 8.3 % Neutrophils # (Auto) 7.8 10^3/uL Lymphocytes # (Auto) 0.93 10^3/uL1 Monocytes # (Auto) 0.8 10^3/uL Absolute Immature Granulocyte (auto 0.13 10^3 u/L Absolute Eosinophils (auto) 0.0 10^3/uL Immature Granulocytes % 1.40 % Eosinophils % 0.0 % Basophils % 0.3 % Basophils # 0.0 10^3/uL Sodium Level 132 mmol/L Potassium Level 4.2 mmol/L Chloride Level 99.0 mmol/L Carbon Dioxide Level 23.2 mmol/L Glucose Level 147 mg/dL Blood Urea Nitrogen 20 mg/dL Creatinine 0.66 mg/dL Calcium Level 9.4 mg/dL Anion Gap 14.0 Estimated GFR () 157.2 Est GFR (CKD-EPI)(Non-Afr Bol[place]ian) 129.9 BUN/Creatinine Ratio 30.0 Differential Total Cells Counted 100 #CELLS Segmented Neutrophils 77 % Band Neutrophils 1 % Lymphocytes 12 % Monocytes 9 % Atypical Lymphocytes 1 % Platelet Estimate ADEQUATE Platelet Morphology NORMAL Blood Morphology Comment NORMAL MORPHOLOGY Current Medications Medications (Trade) Dose Ordered Sig/Sisi Route PRN Reason Start Time Stop Time Status Last Admin Dose Admin Remdesivir 200 mg/ Sodium Chloride 140 ml @ 120.69 mls/ hr OT IV 03/23/21 21:00 03/24/21 18:28 DC 03/23/21 23:09 Insulin Human Lispro (Humalog) TIDM SQ 03/23/21 21:00 04/22/21 20:59 03/24/21 17:42 Ascorbic Acid (Vitamin C) 500 mg BID PO 03/23/21 21:00 04/22/21 20:59 03/25/21 08:42 Zinc Sulfate (Zinc Sulfate) 220 mg DAILY PO 03/24/21 09:00 04/23/21 08:59 03/25/21 08:46 Azithromycin (Zithromax) 250 mg DAILY PO 03/24/21 09:00 04/23/21 08:59 03/25/21 08:43 Enoxaparin Sodium (Lovenox) 40 mg Q24HRS SQ 03/23/21 21:00 04/22/21 20:59 03/24/21 20:56 Aspirin (Aspirin) 81 mg DAILY PO 03/24/21 09:00 04/23/21 08:59 03/25/21 08:42 Furosemide (Lasix) 20 mg DAILY IV 03/24/21 09:00 04/23/21 08:59 03/25/21 08:45 Insulin Glargine (Lantus) 25 unit DAILY SQ 03/24/21 09:00 04/23/21 08:59 03/24/21 09:45 Sodium Chloride 100 ml @ ud STK-MED ONCE IV 03/23/21 22:46 03/23/21 22:47 DC Sodium Chloride 100 ml @ ud STK-MED ONCE IV 03/23/21 22:50 03/23/21 22:50 DC Remdesivir 100 mg/ Sodium Chloride 120 ml @ 120 mls/hr HS IV 03/24/21 21:00 03/27/21 21:59 03/24/21 20:49 Gabapentin (Neurontin) 600 mg BID PO 03/24/21 11:30 03/24/21 12:34 DC 03/24/21 12:03 Gabapentin (Neurontin) 300 mg STK-MED ONCE .ROUTE 03/24/21 11:58 03/24/21 11:59 DC Gabapentin (Neurontin) 600 mg BID PO 03/24/21 15:00 04/23/21 14:59 03/25/21 08:43 Metformin HCl (Glucophage Xr) 1,000 mg BIDM PO 03/24/21 17:00 03/24/21 15:21 DC Lisinopril (Zestril) 10 mg DAILY PO 03/25/21 09:00 04/24/21 08:59 03/25/21 08:43 Hydrochlorothiazide (Hydrochlorothiazide) 12.5 mg DAILY PO 03/25/21 09:00 04/24/21 08:59 03/25/21 08:43 Glimepiride (Amaryl) 4 mg BID PO 03/24/21 14:00 03/24/21 16:12 DC Metformin HCl (Glucophage) 1,000 mg BID PO 03/24/21 21:00 04/23/21 20:59 03/25/21 08:42 Glimepiride (Amaryl) 4 mg BID PO 03/24/21 21:00 04/23/21 20:59 03/25/21 08:46 Sodium Chloride 250 ml @ ud STK-MED ONCE .ROUTE 03/24/21 20:35 03/24/21 20:35 DC Melatonin (Melatonin) 3 mg HS PRN PO INSOMNIA 03/25/21 00:00 04/24/21 00:00 Hydralazine HCl (Apresoline) 10 mg Q4HR PRN IV HYPERTENSION 03/25/21 00:00 04/24/21 00:00 03/25/21 00:21 Lanolin (Lanolin Hydrous) 28 gm STK-MED ONCE TP 03/25/21 09:53 03/25/21 09:53 DC Course Sepsis Screening Results: Posi: POSITIVE Sepsis Qualifier/Stage: SEPSIS RISK Duration or Total Time Spent w: 22 Vitals & review Data Vital Sign - Last 24 Hours 03/25/21 03/25/21 03/25/21 03/25/21 08:43 08:43 08:45 09:43 Temp 98.6 Resp 19 B/P (MAP) 164/96 164/96 164/96 Laboratory Tests Test 03/23/21 14:24 03/23/21 14:31 03/23/21 14:43 03/24/21 04:51 White Blood Count 9.0 10^3/uL 8.1 10^3/uL Red Blood Count 5.13 10^6/uL 5.06 10^6/uL Hemoglobin 14.3 g/dL 14.4 g/dL Hematocrit 46.1 % 44.3 % Mean Corpuscular Volume 89.9 fL 87.5 fL Mean Corpuscular Hemoglobin 27.9 pg 28.5 pg Mean Corpuscular Hemoglobin Concent 31.0 g/dL 32.5 g/dL Red Cell Distribution Width 13.2 % 12.9 % Platelet Count 166 10^3/uL 171 10^3/uL Mean Platelet Volume 11.1 fL 11.3 fL Neutrophils (%) (Auto) 86.4 % 87.7 % Lymphocytes (%) (Auto) 5.3 % 7.5 % Monocytes (%) (Auto) 6.4 % 4.5 % Neutrophils # (Auto) 7.8 10^3/uL 7.1 10^3/uL Lymphocytes # (Auto) 0.48 10^3/uL1 0.61 10^3/uL1 Monocytes # (Auto) 0.6 10^3/uL 0.4 10^3/uL Absolute Immature Granulocyte (auto 0.07 10^3 u/L 0.09 10^3 u/L Absolute Eosinophils (auto) 0.1 10^3/uL 0.0 10^3/uL Immature Granulocytes % 0.80 % 1.10 % Eosinophils % 1.0 % 0.1 % Basophils % 0.1 % 0.2 % Basophils # 0.0 10^3/uL 0.0 10^3/uL D-Dimer 0.50 mg/L Sodium Level 132 mmol/L 135 mmol/L Potassium Level 4.3 mmol/L 4.3 mmol/L Chloride Level 99.0 mmol/L 98.0 mmol/L Carbon Dioxide Level 26.4 mmol/L 24.0 mmol/L Anion Gap 10.9 17.3 Blood Urea Nitrogen 14 mg/dL 13 mg/dL Creatinine 0.80 mg/dL 0.73 mg/dL Estimated GFR () 125.9 140.0 Est GFR (CKD-EPI)(Non-Afr Bol[place]ian) 104.1 115.7 BUN/Creatinine Ratio 17.0 17.0 Glucose Level 165 mg/dL 181 mg/dL Calcium Level 9.0 mg/dL 9.1 mg/dL Ferritin 1383 ng/mL Total Bilirubin 0.9 mg/dL Aspartate Amino Transf (AST/SGOT) 54 U/L Alanine Aminotransferase (ALT/SGPT) 86 U/L Alkaline Phosphatase 110 U/L Troponin I High Sensitivity 6 ng/L Pro-B-Type Natriuretic Peptide 34 pg/mL Total Protein 7.7 g/dL Albumin 2.9 g/dL Globulin 4.8 Albumin/Globulin Ratio 0.604 Differential Total Cells Counted 100 #CELLS Segmented Neutrophils 85 % Lymphocytes 11 % Monocytes 4 % Platelet Estimate ADEQUATE Platelet Morphology NORMAL Blood Gas Sample Site RT BRACIAL ARTERY Blood Gas pH 7.547 Blood Gas PCO2 29.2 mmHg Blood Gas PO2 56.9 mmHg Blood Gas HCO3 24.8 mmol/L Blood Gas Base Excess 3.4 mmol/L Hemanth Test N/A Arterial Blood Oxygen Saturation 91.2 % Deoxyhemoglobin 8.7 % Carboxyhemoglobin 0.8 % Methemoglobin 0.1 % Total Hemoglobin 14.7 % Total Oxygen Concentration 18.7 % Blood Gas Temperature 37 Oxygen Delivery Method (LAB) NASAL CANNULA FiO2 28 % Total Carbon Dioxide 25.7 mmol/L C-Reactive Protein 26.11 mg/dL Test 03/24/21 11:37 03/24/21 16:36 03/24/21 20:54 03/25/21 00:11 Bedside Glucose 244 251 301 252 Test 03/25/21 06:18 03/25/21 06:35 03/25/21 07:37 Bedside Glucose 147 White Blood Count 9.5 10^3/uL Red Blood Count 5.25 10^6/uL Hemoglobin 14.9 g/dL Hematocrit 46.5 % Mean Corpuscular Volume 88.6 fL Mean Corpuscular Hemoglobin 28.4 pg Mean Corpuscular Hemoglobin Concent 32.0 g/dL Red Cell Distribution Width 12.9 % Platelet Count 215 10^3/uL Mean Platelet Volume 11.4 fL Neutrophils (%) (Auto) 81.6 % Lymphocytes (%) (Auto) 9.8 % Monocytes (%) (Auto) 8.3 % Neutrophils # (Auto) 7.8 10^3/uL Lymphocytes # (Auto) 0.93 10^3/uL1 Monocytes # (Auto) 0.8 10^3/uL Absolute Immature Granulocyte (auto 0.13 10^3 u/L Absolute Eosinophils (auto) 0.0 10^3/uL Immature Granulocytes % 1.40 % Eosinophils % 0.0 % Basophils % 0.3 % Basophils # 0.0 10^3/uL Sodium Level 132 mmol/L Potassium Level 4.2 mmol/L Chloride Level 99.0 mmol/L Carbon Dioxide Level 23.2 mmol/L Glucose Level 147 mg/dL Blood Urea Nitrogen 20 mg/dL Creatinine 0.66 mg/dL Calcium Level 9.4 mg/dL Anion Gap 14.0 Estimated GFR () 157.2 Est GFR (CKD-EPI)(Non-Afr [place]ian) 129.9 BUN/Creatinine Ratio 30.0 Differential Total Cells Counted 100 #CELLS Segmented Neutrophils 77 % Band Neutrophils 1 % Lymphocytes 12 % Monocytes 9 % Atypical Lymphocytes 1 % Platelet Estimate ADEQUATE Platelet Morphology NORMAL Blood Morphology Comment NORMAL MORPHOLOGY Current Medications Medications (Trade) Dose Ordered Sig/Sisi PRN Reason Start Time Stop Time Status Last Admin Ascorbic Acid (Vitamin C) 500 mg BID 03/23/21 21:00 04/22/21 20:59 03/25/21 08:42 Aspirin (Aspirin) 81 mg DAILY 03/24/21 09:00 04/23/21 08:59 03/25/21 08:42 Azithromycin (Zithromax) 250 mg DAILY 03/24/21 09:00 04/23/21 08:59 03/25/21 08:43 Enoxaparin Sodium (Lovenox) 40 mg Q24HRS 03/23/21 21:00 04/22/21 20:59 03/24/21 20:56 Furosemide (Lasix) 20 mg DAILY 03/24/21 09:00 04/23/21 08:59 03/25/21 08:45 Gabapentin (Neurontin) 600 mg BID 03/24/21 15:00 04/23/21 14:59 03/25/21 08:43 Glimepiride (Amaryl) 4 mg BID 03/24/21 21:00 04/23/21 20:59 03/25/21 08:46 Hydralazine HCl (Apresoline) 10 mg Q4HR PRN HYPERTENSION 03/25/21 00:00 04/24/21 00:00 03/25/21 00:21 Hydrochlorothiazide (Hydrochlorothiazide) 12.5 mg DAILY 03/25/21 09:00 04/24/21 08:59 03/25/21 08:43 Insulin Glargine (Lantus) 25 unit DAILY 03/24/21 09:00 04/23/21 08:59 03/24/21 09:45 Insulin Human Lispro (Humalog) TIDM 03/23/21 21:00 04/22/21 20:59 03/24/21 17:42 Lisinopril (Zestril) 10 mg DAILY 03/25/21 09:00 04/24/21 08:59 03/25/21 08:43 Melatonin (Melatonin) 3 mg HS PRN INSOMNIA 03/25/21 00:00 04/24/21 00:00 Metformin HCl (Glucophage) 1,000 mg BID 03/24/21 21:00 04/23/21 20:59 03/25/21 08:42 Remdesivir 100 mg/ Sodium Chloride 120 ml @ 120 mls/hr HS 03/24/21 21:00 03/27/21 21:59 03/24/21 20:49 Zinc Sulfate (Zinc Sulfate) 220 mg DAILY 03/24/21 09:00 04/23/21 08:59 03/25/21 08:46 Sepsis Infection Criteria Pres: None LEVEL 1 SEPSIS INFECTION CRITE: Cough/Shortness of Breath LEVEL 2-SIRS (LIST ALL THAT AP: None/Not assessed Cardiovascular Evidence: Not Assessed or None Hematologic Evidence: None/Not assessed Hepatic Evidence: None/Not assessed Metabolic Evidence: None/Not assessed Neurological Evidence: None/Not assessed Respiratory Evidence: Acute Resp failure, Need for O2 to keep>90%, O2 SAT<90room air Renal Evidence: None/Not assessed O2 Sat by Pulse Oximetry: 94 Oxygen Flow Rate: 4.00 Assessment/Plan Assessment/Plan Assessment/Plan COVID-19 infection pneumonia Acute hypoxic respiratory failure Obesity Placing patient at risk of prolonging management and treatment. Diabetes mellitus type 2 Continue with remdesivir Steroid therapy dexamethasone 6 mg daily Zinc sulfate to 20 mg daily Ascorbic acid 500 mg twice daily Aspirin Anticoagulation with Lovenox 40 mg subcutaneous daily Oxygen therapy continue to maintain oxygenation above 92% BERNARD MOORE MD Mar 25, 2021 10:23
[2021-03-25 11:23] VITALS: BP 167/84
[2021-03-25 15:07] VITALS: BP 182/105
[2021-03-25] MEDS: REMDESIVIR (EUA) 100 MG in NS 100ML 100 ML IV SCH (21:01)
[2021-03-25] MEDS: LOVENOX SQ SCH (21:09)
[2021-03-25 21:19] VITALS: BP 151/103
[2021-03-25] MEDS ORDERED: APRESOLINE ONE (23:30)
[2021-03-26] MEDS: APRESOLINE IV PRN (00:45)
[2021-03-26 04:00] VITALS: BP 144/86
[2021-03-26 06:31] LABS: BASOPHIL % 0.1 % (0.0-0.2); LYMPHOCYTES # 1.61 10^3/uL1 (1.0-4.8); LYMPHOCYTES % 9.6 % (24.0-44.0); MONOCYTES # 1.7 10^3/uL (0.3-0.8); NEUTROPHIL # 13.4 10^3/uL (1.8-7.7); NEUTROPHILS % 80.3 % (41.0-85.0); PLATELET COUNT 319 10^3/uL (150-400)
[2021-03-26 06:37] LABS: CARBON DIOXIDE 21.8 mmol/L (20.0-32)
[2021-03-26 07:53] VITALS: BP 131/108
[2021-03-26] MEDS: HUMALOG SQ SCH ×4 (08:00→21:59)
[2021-03-26] MEDS: LANTUS SQ SCH (09:00)
[2021-03-26] MEDS: DEXAMETHASONE 10 MG/ML VIAL IV SCH (10:44)
[2021-03-26] MEDS: ZINC SULFATE PO SCH (10:44)
[2021-03-26] MEDS: LASIX IV SCH (10:44)
[2021-03-26] MEDS: VITAMIN C PO SCH ×2 (10:45→21:39)
[2021-03-26] MEDS: GLUCOPHAGE PO SCH ×2 (10:45→21:39)
[2021-03-26] MEDS: AMARYL PO SCH ×2 (10:46→22:03)
[2021-03-26] MEDS: ZESTRIL PO SCH (10:47)
[2021-03-26] MEDS: HYDROCHLOROTHIAZIDE PO SCH (10:47)
[2021-03-26] MEDS: ZITHROMAX PO SCH (10:47)
[2021-03-26] MEDS: NEURONTIN PO SCH ×2 (10:47→21:39)
[2021-03-26] MEDS: ASPIRIN PO SCH (10:47)
--- NOTE | 2021-03-26 11:07 | PRM.PN ---
Subjective Subjective Date: Mar 26, 2021 Time: 11:26 Subjective Patient currently on 4 L nasal cannula discussed finishing hospital for specific medications and if able to stay on low-flow nasal cannula could be discharged with home oxygen in few days. Patient is in agreement with this plan Patient History: FH: cancer G8 SISTER Hypertension No Family History of: Alzheimer's disease Asthma Cerebrovascular disorder Chronic obstructive pulmonary disease Congestive heart failure Diabetes insipidus Diabetes mellitus Parkinson's disease VTE VTE Risk Total Score: 4 VTE Risk Score VTE Risk: Score 0-1 = Low Risk (Aggressive mobilization; early ambulation; no VTE prophylaxis required) Score 2: Moderate Risk (Intermittent/Pneumatic Compression Device OR Lovenox/Heparin/Coumadin) Score 3-4: High Risk (Intermittent/Pneumatic Compression Device AND Lovenox/Heparin/Coumadin) Score > or =5: Highest Risk (Intermittent/Pneumatic Compression Device AND Lovenox/Heparin/Coumadin) Review of Systems Constitutional: Chills, Weakness, Malaise Eyes: No: Pain, Vision change, Conjunctivae inflammation, Eyelid inflammation, Other, Redness ENT: Throat pain; No: Ear pain, Ear discharge, Nose pain, Nose discharge, Nose congestion, Mouth pain, Mouth swelling, Throat swelling, Other Respiratory: Cough, Shortness of breath, SOB with excertion Cardiovascular: No: Chest Pain, Palpitations, Orthopnea, Paroxysmal Noc. Dyspnea, Edema, Lt Headedness, Other Gastrointestinal: No: Nausea, Vomiting, Abdominal Pain, Diarrhea, Constipation, Melena, Hematochezia, Other Genitourinary: No Dysuria, No Frequency, No Incontinence, No Hematuria, No Retention, No Other Musculoskeletal: No: other, neck pain, shoulder pain, arm pain, back pain, hand pain, leg pain, foot pain Skin: No: Rash, Lesions, Jaundice, Bruising, Other Neurological: No: Weakness, Numbness, Incoordination, Change in speech, Confusion, Seizures, Other Allergies: Coded Allergies: No Known Allergies (Unverified , 04/03/16) Scheduled Gabapentin (Gabapentin), 600 MG PO BID, (Reported) Glimepiride (Glimepiride), 1 TAB PO BID, (Reported) Lisinopril/Hydrochlorothiazide (Lisinopril-Hctz 10-12.5 Mg Tab), 1 TAB PO DAILY, (Reported) Metformin Hcl (Metformin Hcl), 1 TAB PO BID, (Reported) Phentermine Hcl (Phentermine Hcl), 37.5 MG PO DAILY24, (Reported) Discontinued Medications Empagliflozin/Metformin HCl (Synjardy 12.5-1,000 mg Tablet), 1 EACH PO DAILY24, (Reported) Discontinued Reason: Discontinue Objective Vitals and I/O Vital Sign - Last 24 Hours 03/26/21 03/26/21 03/26/21 03/26/21 07:53 08:28 10:44 10:47 Temp 98.6 Pulse 118 109 Resp 20 20 B/P (MAP) 131/108 (116) 131/108 131/108 Pulse Ox 87 O2 Delivery Nasal Canula Nasal Cannula O2 Flow Rate 4.00 4.00 FiO2 36 General: Alert, Oriented X3, Cooperative HEENT: Atraumatic, PERRLA, EOMI Neck: Supple Lungs: Other (Decreased bilateral lung sounds) Heart: Regular rate, Normal S1, Normal S2, No murmurs Abdomen: Normal bowel sounds, Soft, No tenderness Extremities: No clubbing, No cyanosis, No edema Skin: No breakdown Neuro: Normal gait, Normal speech, Strength at 5/5 X4 ext, Normal tone Psych/Mental Status: Mental status NL, Mood NL All Results(Lab/Rad) Laboratory Tests Test 03/24/21 11:37 03/24/21 16:36 03/24/21 20:54 03/25/21 00:11 Bedside Glucose 244 251 301 252 Test 03/25/21 06:18 03/25/21 06:35 03/25/21 07:37 Bedside Glucose 147 White Blood Count 9.5 10^3/uL Red Blood Count 5.25 10^6/uL Hemoglobin 14.9 g/dL Hematocrit 46.5 % Mean Corpuscular Volume 88.6 fL Mean Corpuscular Hemoglobin 28.4 pg Mean Corpuscular Hemoglobin Concent 32.0 g/dL Red Cell Distribution Width 12.9 % Platelet Count 215 10^3/uL Mean Platelet Volume 11.4 fL Neutrophils (%) (Auto) 81.6 % Lymphocytes (%) (Auto) 9.8 % Monocytes (%) (Auto) 8.3 % Neutrophils # (Auto) 7.8 10^3/uL Lymphocytes # (Auto) 0.93 10^3/uL1 Monocytes # (Auto) 0.8 10^3/uL Absolute Immature Granulocyte (auto 0.13 10^3 u/L Absolute Eosinophils (auto) 0.0 10^3/uL Immature Granulocytes % 1.40 % Eosinophils % 0.0 % Basophils % 0.3 % Basophils # 0.0 10^3/uL Sodium Level 132 mmol/L Potassium Level 4.2 mmol/L Chloride Level 99.0 mmol/L Carbon Dioxide Level 23.2 mmol/L Glucose Level 147 mg/dL Blood Urea Nitrogen 20 mg/dL Creatinine 0.66 mg/dL Calcium Level 9.4 mg/dL Anion Gap 14.0 Estimated GFR () 157.2 Est GFR (CKD-EPI)(Non-Afr Citizen Of [place]) 129.9 BUN/Creatinine Ratio 30.0 Differential Total Cells Counted 100 #CELLS Segmented Neutrophils 77 % Band Neutrophils 1 % Lymphocytes 12 % Monocytes 9 % Atypical Lymphocytes 1 % Platelet Estimate ADEQUATE Platelet Morphology NORMAL Blood Morphology Comment NORMAL MORPHOLOGY Current Medications Medications (Trade) Dose Ordered Sig/Sisi Route PRN Reason Start Time Stop Time Status Last Admin Dose Admin Remdesivir 200 mg/ Sodium Chloride 140 ml @ 120.69 mls/ hr OT IV 03/23/21 21:00 03/24/21 18:28 DC 03/23/21 23:09 Insulin Human Lispro (Humalog) TIDM SQ 03/23/21 21:00 04/22/21 20:59 03/24/21 17:42 Ascorbic Acid (Vitamin C) 500 mg BID PO 03/23/21 21:00 04/22/21 20:59 03/25/21 08:42 Zinc Sulfate (Zinc Sulfate) 220 mg DAILY PO 03/24/21 09:00 04/23/21 08:59 03/25/21 08:46 Azithromycin (Zithromax) 250 mg DAILY PO 03/24/21 09:00 04/23/21 08:59 03/25/21 08:43 Enoxaparin Sodium (Lovenox) 40 mg Q24HRS SQ 03/23/21 21:00 04/22/21 20:59 03/24/21 20:56 Aspirin (Aspirin) 81 mg DAILY PO 03/24/21 09:00 04/23/21 08:59 03/25/21 08:42 Furosemide (Lasix) 20 mg DAILY IV 03/24/21 09:00 04/23/21 08:59 03/25/21 08:45 Insulin Glargine (Lantus) 25 unit DAILY SQ 03/24/21 09:00 04/23/21 08:59 03/24/21 09:45 Sodium Chloride 100 ml @ ud STK-MED ONCE IV 03/23/21 22:46 03/23/21 22:47 DC Sodium Chloride 100 ml @ ud STK-MED ONCE IV 03/23/21 22:50 03/23/21 22:50 DC Remdesivir 100 mg/ Sodium Chloride 120 ml @ 120 mls/hr HS IV 03/24/21 21:00 03/27/21 21:59 03/24/21 20:49 Gabapentin (Neurontin) 600 mg BID PO 03/24/21 11:30 03/24/21 12:34 DC 03/24/21 12:03 Gabapentin (Neurontin) 300 mg STK-MED ONCE .ROUTE 03/24/21 11:58 03/24/21 11:59 DC Gabapentin (Neurontin) 600 mg BID PO 03/24/21 15:00 04/23/21 14:59 03/25/21 08:43 Metformin HCl (Glucophage Xr) 1,000 mg BIDM PO 03/24/21 17:00 03/24/21 15:21 DC Lisinopril (Zestril) 10 mg DAILY PO 03/25/21 09:00 04/24/21 08:59 03/25/21 08:43 Hydrochlorothiazide (Hydrochlorothiazide) 12.5 mg DAILY PO 03/25/21 09:00 04/24/21 08:59 03/25/21 08:43 Glimepiride (Amaryl) 4 mg BID PO 03/24/21 14:00 03/24/21 16:12 DC Metformin HCl (Glucophage) 1,000 mg BID PO 03/24/21 21:00 04/23/21 20:59 03/25/21 08:42 Glimepiride (Amaryl) 4 mg BID PO 03/24/21 21:00 04/23/21 20:59 03/25/21 08:46 Sodium Chloride 250 ml @ ud STK-MED ONCE .ROUTE 03/24/21 20:35 03/24/21 20:35 DC Melatonin (Melatonin) 3 mg HS PRN PO INSOMNIA 03/25/21 00:00 04/24/21 00:00 Hydralazine HCl (Apresoline) 10 mg Q4HR PRN IV HYPERTENSION 03/25/21 00:00 04/24/21 00:00 03/25/21 00:21 Lanolin (Lanolin Hydrous) 28 gm STK-MED ONCE TP 03/25/21 09:53 03/25/21 09:53 DC Course Sepsis Screening Results: Posi: POSITIVE Sepsis Qualifier/Stage: SEPSIS RISK Duration or Total Time Spent w: 22 Vitals & review Data Vital Sign - Last 24 Hours 03/25/21 03/25/21 03/25/21 03/25/21 08:43 08:43 08:45 09:43 Temp 98.6 Resp 19 B/P (MAP) 164/96 164/96 164/96 Laboratory Tests Test 03/23/21 14:24 03/23/21 14:31 03/23/21 14:43 03/24/21 04:51 White Blood Count 9.0 10^3/uL 8.1 10^3/uL Red Blood Count 5.13 10^6/uL 5.06 10^6/uL Hemoglobin 14.3 g/dL 14.4 g/dL Hematocrit 46.1 % 44.3 % Mean Corpuscular Volume 89.9 fL 87.5 fL Mean Corpuscular Hemoglobin 27.9 pg 28.5 pg Mean Corpuscular Hemoglobin Concent 31.0 g/dL 32.5 g/dL Red Cell Distribution Width 13.2 % 12.9 % Platelet Count 166 10^3/uL 171 10^3/uL Mean Platelet Volume 11.1 fL 11.3 fL Neutrophils (%) (Auto) 86.4 % 87.7 % Lymphocytes (%) (Auto) 5.3 % 7.5 % Monocytes (%) (Auto) 6.4 % 4.5 % Neutrophils # (Auto) 7.8 10^3/uL 7.1 10^3/uL Lymphocytes # (Auto) 0.48 10^3/uL1 0.61 10^3/uL1 Monocytes # (Auto) 0.6 10^3/uL 0.4 10^3/uL Absolute Immature Granulocyte (auto 0.07 10^3 u/L 0.09 10^3 u/L Absolute Eosinophils (auto) 0.1 10^3/uL 0.0 10^3/uL Immature Granulocytes % 0.80 % 1.10 % Eosinophils % 1.0 % 0.1 % Basophils % 0.1 % 0.2 % Basophils # 0.0 10^3/uL 0.0 10^3/uL D-Dimer 0.50 mg/L Sodium Level 132 mmol/L 135 mmol/L Potassium Level 4.3 mmol/L 4.3 mmol/L Chloride Level 99.0 mmol/L 98.0 mmol/L Carbon Dioxide Level 26.4 mmol/L 24.0 mmol/L Anion Gap 10.9 17.3 Blood Urea Nitrogen 14 mg/dL 13 mg/dL Creatinine 0.80 mg/dL 0.73 mg/dL Estimated GFR () 125.9 140.0 Est GFR (CKD-EPI)(Non-Afr Citizen Of [place]) 104.1 115.7 BUN/Creatinine Ratio 17.0 17.0 Glucose Level 165 mg/dL 181 mg/dL Calcium Level 9.0 mg/dL 9.1 mg/dL Ferritin 1383 ng/mL Total Bilirubin 0.9 mg/dL Aspartate Amino Transf (AST/SGOT) 54 U/L Alanine Aminotransferase (ALT/SGPT) 86 U/L Alkaline Phosphatase 110 U/L Troponin I High Sensitivity 6 ng/L Pro-B-Type Natriuretic Peptide 34 pg/mL Total Protein 7.7 g/dL Albumin 2.9 g/dL Globulin 4.8 Albumin/Globulin Ratio 0.604 Differential Total Cells Counted 100 #CELLS Segmented Neutrophils 85 % Lymphocytes 11 % Monocytes 4 % Platelet Estimate ADEQUATE Platelet Morphology NORMAL Blood Gas Sample Site RT BRACIAL ARTERY Blood Gas pH 7.547 Blood Gas PCO2 29.2 mmHg Blood Gas PO2 56.9 mmHg Blood Gas HCO3 24.8 mmol/L Blood Gas Base Excess 3.4 mmol/L Hemanth Test N/A Arterial Blood Oxygen Saturation 91.2 % Deoxyhemoglobin 8.7 % Carboxyhemoglobin 0.8 % Methemoglobin 0.1 % Total Hemoglobin 14.7 % Total Oxygen Concentration 18.7 % Blood Gas Temperature 37 Oxygen Delivery Method (LAB) NASAL CANNULA FiO2 28 % Total Carbon Dioxide 25.7 mmol/L C-Reactive Protein 26.11 mg/dL Test 03/24/21 11:37 03/24/21 16:36 03/24/21 20:54 03/25/21 00:11 Bedside Glucose 244 251 301 252 Test 03/25/21 06:18 03/25/21 06:35 03/25/21 07:37 Bedside Glucose 147 White Blood Count 9.5 10^3/uL Red Blood Count 5.25 10^6/uL Hemoglobin 14.9 g/dL Hematocrit 46.5 % Mean Corpuscular Volume 88.6 fL Mean Corpuscular Hemoglobin 28.4 pg Mean Corpuscular Hemoglobin Concent 32.0 g/dL Red Cell Distribution Width 12.9 % Platelet Count 215 10^3/uL Mean Platelet Volume 11.4 fL Neutrophils (%) (Auto) 81.6 % Lymphocytes (%) (Auto) 9.8 % Monocytes (%) (Auto) 8.3 % Neutrophils # (Auto) 7.8 10^3/uL Lymphocytes # (Auto) 0.93 10^3/uL1 Monocytes # (Auto) 0.8 10^3/uL Absolute Immature Granulocyte (auto 0.13 10^3 u/L Absolute Eosinophils (auto) 0.0 10^3/uL Immature Granulocytes % 1.40 % Eosinophils % 0.0 % Basophils % 0.3 % Basophils # 0.0 10^3/uL Sodium Level 132 mmol/L Potassium Level 4.2 mmol/L Chloride Level 99.0 mmol/L Carbon Dioxide Level 23.2 mmol/L Glucose Level 147 mg/dL Blood Urea Nitrogen 20 mg/dL Creatinine 0.66 mg/dL Calcium Level 9.4 mg/dL Anion Gap 14.0 Estimated GFR () 157.2 Est GFR (CKD-EPI)(Non-Afr Citizen Of [place]) 129.9 BUN/Creatinine Ratio 30.0 Differential Total Cells Counted 100 #CELLS Segmented Neutrophils 77 % Band Neutrophils 1 % Lymphocytes 12 % Monocytes 9 % Atypical Lymphocytes 1 % Platelet Estimate ADEQUATE Platelet Morphology NORMAL Blood Morphology Comment NORMAL MORPHOLOGY Current Medications Medications (Trade) Dose Ordered Sig/Sisi PRN Reason Start Time Stop Time Status Last Admin Ascorbic Acid (Vitamin C) 500 mg BID 03/23/21 21:00 04/22/21 20:59 03/25/21 08:42 Aspirin (Aspirin) 81 mg DAILY 03/24/21 09:00 04/23/21 08:59 03/25/21 08:42 Azithromycin (Zithromax) 250 mg DAILY 03/24/21 09:00 04/23/21 08:59 03/25/21 08:43 Enoxaparin Sodium (Lovenox) 40 mg Q24HRS 03/23/21 21:00 04/22/21 20:59 03/24/21 20:56 Furosemide (Lasix) 20 mg DAILY 03/24/21 09:00 04/23/21 08:59 03/25/21 08:45 Gabapentin (Neurontin) 600 mg BID 03/24/21 15:00 04/23/21 14:59 03/25/21 08:43 Glimepiride (Amaryl) 4 mg BID 03/24/21 21:00 04/23/21 20:59 03/25/21 08:46 Hydralazine HCl (Apresoline) 10 mg Q4HR PRN HYPERTENSION 03/25/21 00:00 04/24/21 00:00 03/25/21 00:21 Hydrochlorothiazide (Hydrochlorothiazide) 12.5 mg DAILY 03/25/21 09:00 04/24/21 08:59 03/25/21 08:43 Insulin Glargine (Lantus) 25 unit DAILY 03/24/21 09:00 04/23/21 08:59 03/24/21 09:45 Insulin Human Lispro (Humalog) TIDM 03/23/21 21:00 04/22/21 20:59 03/24/21 17:42 Lisinopril (Zestril) 10 mg DAILY 03/25/21 09:00 04/24/21 08:59 03/25/21 08:43 Melatonin (Melatonin) 3 mg HS PRN INSOMNIA 03/25/21 00:00 04/24/21 00:00 Metformin HCl (Glucophage) 1,000 mg BID 03/24/21 21:00 04/23/21 20:59 03/25/21 08:42 Remdesivir 100 mg/ Sodium Chloride 120 ml @ 120 mls/hr HS 03/24/21 21:00 03/27/21 21:59 03/24/21 20:49 Zinc Sulfate (Zinc Sulfate) 220 mg DAILY 03/24/21 09:00 04/23/21 08:59 03/25/21 08:46 Sepsis Infection Criteria Pres: None LEVEL 1 SEPSIS INFECTION CRITE: Cough/Shortness of Breath LEVEL 2-SIRS (LIST ALL THAT AP: None/Not assessed Cardiovascular Evidence: Not Assessed or None Hematologic Evidence: None/Not assessed Hepatic Evidence: None/Not assessed Metabolic Evidence: None/Not assessed Neurological Evidence: None/Not assessed Respiratory Evidence: Acute Resp failure, Need for O2 to keep>90%, O2 SAT<90room air Renal Evidence: None/Not assessed O2 Sat by Pulse Oximetry: 87 Oxygen Flow Rate: 4.00 Assessment/Plan Assessment/Plan Assessment/Plan COVID-19 infection pneumonia Acute hypoxic respiratory failure Obesity Placing patient at risk of prolonging management and treatment. Diabetes mellitus type 2 Continue with remdesivir Steroid therapy dexamethasone 6 mg daily Zinc sulfate to 20 mg daily Ascorbic acid 500 mg twice daily Aspirin Anticoagulation with Lovenox 40 mg subcutaneous daily Oxygen therapy continue to maintain oxygenation above 92% FULL CODE KANDY ROONEY MD Mar 26, 2021 11:07
[2021-03-26 11:32] VITALS: BP 144/90
[2021-03-26 15:21] VITALS: BP 142/88
[2021-03-26 20:01] VITALS: BP 131/66
[2021-03-26] MEDS: REMDESIVIR (EUA) 100 MG in NS 100ML 100 ML IV SCH (21:38)
[2021-03-26] MEDS: LOVENOX SQ SCH (22:03)
[2021-03-26 23:10] VITALS: BP 127/86
[2021-03-27 04:10] VITALS: BP 113/70
[2021-03-27 06:31] LABS: BASOPHIL % 0.2 % (0.0-0.2); EOSINOPHIL % 0.1 % (0.0-5.0); LYMPHOCYTES # 1.37 10^3/uL1 (1.0-4.8); MEAN CORP HGB 28.3 pg (26-34); MONOCYTES % 9.9 % (5.0-12.0); NEUTROPHIL # 8.1 10^3/uL (1.8-7.7); NEUTROPHILS % 76.8 % (41.0-85.0); PLATELET COUNT 270 10^3/uL (150-400); RED CELL DISTRIBUTION WIDTH 13.1 % (11.5-14.5)
[2021-03-27 06:49] LABS: CARBON DIOXIDE 26.4 mmol/L (20.0-32)
[2021-03-27] MEDS: LANTUS SQ SCH (08:12)
[2021-03-27] MEDS: HUMALOG SQ SCH ×4 (08:30→21:00)
[2021-03-27 08:35] LABS: LYMPHOCYTE 17 % (25-36); MONOCYTE 12 % (3-9); SEGMENTED NEUTROPHILS 71 % (31-76)
[2021-03-27] MEDS: DEXAMETHASONE 10 MG/ML VIAL IV SCH (08:40)
[2021-03-27] MEDS: ASPIRIN PO SCH (08:41)
[2021-03-27] MEDS: AMARYL PO SCH ×2 (08:41→21:01)
[2021-03-27] MEDS: GLUCOPHAGE PO SCH ×2 (08:42→21:01)
[2021-03-27] MEDS: ZITHROMAX PO SCH (08:43)
[2021-03-27] MEDS: VITAMIN C PO SCH ×2 (08:43→21:02)
[2021-03-27] MEDS: NEURONTIN PO SCH ×2 (08:43→21:02)
[2021-03-27] MEDS: ZESTRIL PO SCH (08:43)
[2021-03-27] MEDS: ZINC SULFATE PO SCH (08:43)
[2021-03-27] MEDS: HYDROCHLOROTHIAZIDE PO SCH (08:44)
[2021-03-27] MEDS: LASIX IV SCH (08:45)
[2021-03-27] MEDS ORDERED: ATIVAN PO PRN (09:30)
[2021-03-27 09:31] VITALS: BP 116/86
[2021-03-27 12:52] VITALS: BP 113/55
[2021-03-27] MEDS: COMBIVENT RESPIMAT 20-100 MCG IH SCH (15:16)
--- NOTE | 2021-03-27 16:53 | PRM.PN ---
Subjective Subjective Date: Mar 27, 2021 Time: 16:45 Subjective Sitting up at bedside on comfort flow oxygen. Today [birth year] Patient History: FH: cancer G8 SISTER Hypertension No Family History of: Alzheimer's disease Asthma Cerebrovascular disorder Chronic obstructive pulmonary disease Congestive heart failure Diabetes insipidus Diabetes mellitus Parkinson's disease VTE VTE Risk Total Score: 4 VTE Risk Score VTE Risk: Score 0-1 = Low Risk (Aggressive mobilization; early ambulation; no VTE prophylaxis required) Score 2: Moderate Risk (Intermittent/Pneumatic Compression Device OR Lovenox/Heparin/Coumadin) Score 3-4: High Risk (Intermittent/Pneumatic Compression Device AND Lovenox/Heparin/Coumadin) Score > or =5: Highest Risk (Intermittent/Pneumatic Compression Device AND Lovenox/Heparin/Coumadin) Antico:Hep/LMWH/Coum/Xarelto: Yes Mechanical device ordered: Yes Review of Systems Constitutional: Chills, Weakness, Malaise Eyes: No: Pain, Vision change, Conjunctivae inflammation, Eyelid inflammation, Other, Redness ENT: Throat pain; No: Ear pain, Ear discharge, Nose pain, Nose discharge, Nose congestion, Mouth pain, Mouth swelling, Throat swelling, Other Respiratory: Cough, Shortness of breath, SOB with excertion Cardiovascular: No: Chest Pain, Palpitations, Orthopnea, Paroxysmal Noc. Dyspnea, Edema, Lt Headedness, Other Gastrointestinal: No: Nausea, Vomiting, Abdominal Pain, Diarrhea, Constipation, Melena, Hematochezia, Other Genitourinary: No Dysuria, No Frequency, No Incontinence, No Hematuria, No Retention, No Other Musculoskeletal: No: other, neck pain, shoulder pain, arm pain, back pain, hand pain, leg pain, foot pain Skin: No: Rash, Lesions, Jaundice, Bruising, Other Neurological: No: Weakness, Numbness, Incoordination, Change in speech, Confusion, Seizures, Other Allergies: Coded Allergies: No Known Allergies (Unverified , 04/03/16) Scheduled Gabapentin (Gabapentin), 600 MG PO BID, (Reported) Glimepiride (Glimepiride), 1 TAB PO BID, (Reported) Lisinopril/Hydrochlorothiazide (Lisinopril-Hctz 10-12.5 Mg Tab), 1 TAB PO DAILY, (Reported) Metformin Hcl (Metformin Hcl), 1 TAB PO BID, (Reported) Phentermine Hcl (Phentermine Hcl), 37.5 MG PO DAILY24, (Reported) Discontinued Medications Empagliflozin/Metformin HCl (Synjardy 12.5-1,000 mg Tablet), 1 EACH PO DAILY24, (Reported) Discontinued Reason: Discontinue Objective Vitals and I/O Vital Sign - Last 24 Hours 03/27/21 03/27/21 03/27/21 03/27/21 07:45 07:45 08:15 08:43 Pulse 89 89 Resp 20 20 B/P (MAP) 116/86 Pulse Ox 85 92 O2 Delivery S/T Nasal Cannula Comfort [place] O2 Flow Rate 6.00 30.00 FiO2 70 03/27/21 03/27/21 03/27/21 03/27/21 08:44 08:45 09:31 12:52 Temp 97.5 98.5 Pulse 103 102 Resp 19 22 B/P (MAP) 116/86 116/86 116/86 (96) 113/55 (74) Pulse Ox 89 95 03/27/21 15:00 Pulse 99 Resp 22 Pulse Ox 94 General: Alert, Oriented X3, Cooperative, Other (on comfort flow oxygen) HEENT: Atraumatic, PERRLA, EOMI Neck: Supple Lungs: Other (Decreased bilateral lung sounds) Heart: Regular rate, Normal S1, Normal S2, No murmurs Abdomen: Normal bowel sounds, Soft, No tenderness Extremities: No clubbing, No cyanosis, No edema Skin: No breakdown Neuro: Normal gait, Normal speech, Strength at 5/5 X4 ext, Normal tone Psych/Mental Status: Mental status NL, Mood NL All Results(Lab/Rad) Laboratory Tests Test 03/24/21 11:37 03/24/21 16:36 03/24/21 20:54 03/25/21 00:11 Bedside Glucose 244 251 301 252 Test 03/25/21 06:18 03/25/21 06:35 03/25/21 07:37 Bedside Glucose 147 White Blood Count 9.5 10^3/uL Red Blood Count 5.25 10^6/uL Hemoglobin 14.9 g/dL Hematocrit 46.5 % Mean Corpuscular Volume 88.6 fL Mean Corpuscular Hemoglobin 28.4 pg Mean Corpuscular Hemoglobin Concent 32.0 g/dL Red Cell Distribution Width 12.9 % Platelet Count 215 10^3/uL Mean Platelet Volume 11.4 fL Neutrophils (%) (Auto) 81.6 % Lymphocytes (%) (Auto) 9.8 % Monocytes (%) (Auto) 8.3 % Neutrophils # (Auto) 7.8 10^3/uL Lymphocytes # (Auto) 0.93 10^3/uL1 Monocytes # (Auto) 0.8 10^3/uL Absolute Immature Granulocyte (auto 0.13 10^3 u/L Absolute Eosinophils (auto) 0.0 10^3/uL Immature Granulocytes % 1.40 % Eosinophils % 0.0 % Basophils % 0.3 % Basophils # 0.0 10^3/uL Sodium Level 132 mmol/L Potassium Level 4.2 mmol/L Chloride Level 99.0 mmol/L Carbon Dioxide Level 23.2 mmol/L Glucose Level 147 mg/dL Blood Urea Nitrogen 20 mg/dL Creatinine 0.66 mg/dL Calcium Level 9.4 mg/dL Anion Gap 14.0 Estimated GFR () 157.2 Est GFR (CKD-EPI)(Non-Afr [place]amese) 129.9 BUN/Creatinine Ratio 30.0 Differential Total Cells Counted 100 #CELLS Segmented Neutrophils 77 % Band Neutrophils 1 % Lymphocytes 12 % Monocytes 9 % Atypical Lymphocytes 1 % Platelet Estimate ADEQUATE Platelet Morphology NORMAL Blood Morphology Comment NORMAL MORPHOLOGY Current Medications Medications (Trade) Dose Ordered Sig/Sisi Route PRN Reason Start Time Stop Time Status Last Admin Dose Admin Remdesivir 200 mg/ Sodium Chloride 140 ml @ 120.69 mls/ hr OT IV 03/23/21 21:00 03/24/21 18:28 DC 03/23/21 23:09 Insulin Human Lispro (Humalog) TIDM SQ 03/23/21 21:00 04/22/21 20:59 03/24/21 17:42 Ascorbic Acid (Vitamin C) 500 mg BID PO 03/23/21 21:00 04/22/21 20:59 03/25/21 08:42 Zinc Sulfate (Zinc Sulfate) 220 mg DAILY PO 03/24/21 09:00 04/23/21 08:59 03/25/21 08:46 Azithromycin (Zithromax) 250 mg DAILY PO 03/24/21 09:00 04/23/21 08:59 03/25/21 08:43 Enoxaparin Sodium (Lovenox) 40 mg Q24HRS SQ 03/23/21 21:00 04/22/21 20:59 03/24/21 20:56 Aspirin (Aspirin) 81 mg DAILY PO 03/24/21 09:00 04/23/21 08:59 03/25/21 08:42 Furosemide (Lasix) 20 mg DAILY IV 03/24/21 09:00 04/23/21 08:59 03/25/21 08:45 Insulin Glargine (Lantus) 25 unit DAILY SQ 03/24/21 09:00 04/23/21 08:59 03/24/21 09:45 Sodium Chloride 100 ml @ ud STK-MED ONCE IV 03/23/21 22:46 03/23/21 22:47 DC Sodium Chloride 100 ml @ ud STK-MED ONCE IV 03/23/21 22:50 03/23/21 22:50 DC Remdesivir 100 mg/ Sodium Chloride 120 ml @ 120 mls/hr HS IV 03/24/21 21:00 03/27/21 21:59 03/24/21 20:49 Gabapentin (Neurontin) 600 mg BID PO 03/24/21 11:30 03/24/21 12:34 DC 03/24/21 12:03 Gabapentin (Neurontin) 300 mg STK-MED ONCE .ROUTE 03/24/21 11:58 03/24/21 11:59 DC Gabapentin (Neurontin) 600 mg BID PO 03/24/21 15:00 04/23/21 14:59 03/25/21 08:43 Metformin HCl (Glucophage Xr) 1,000 mg BIDM PO 03/24/21 17:00 03/24/21 15:21 DC Lisinopril (Zestril) 10 mg DAILY PO 03/25/21 09:00 04/24/21 08:59 03/25/21 08:43 Hydrochlorothiazide (Hydrochlorothiazide) 12.5 mg DAILY PO 03/25/21 09:00 04/24/21 08:59 03/25/21 08:43 Glimepiride (Amaryl) 4 mg BID PO 03/24/21 14:00 03/24/21 16:12 DC Metformin HCl (Glucophage) 1,000 mg BID PO 03/24/21 21:00 04/23/21 20:59 03/25/21 08:42 Glimepiride (Amaryl) 4 mg BID PO 03/24/21 21:00 04/23/21 20:59 03/25/21 08:46 Sodium Chloride 250 ml @ ud STK-MED ONCE .ROUTE 03/24/21 20:35 03/24/21 20:35 DC Melatonin (Melatonin) 3 mg HS PRN PO INSOMNIA 03/25/21 00:00 04/24/21 00:00 Hydralazine HCl (Apresoline) 10 mg Q4HR PRN IV HYPERTENSION 03/25/21 00:00 04/24/21 00:00 03/25/21 00:21 Lanolin (Lanolin Hydrous) 28 gm STK-MED ONCE TP 03/25/21 09:53 03/25/21 09:53 DC Course Sepsis Screening Results: Posi: POSITIVE Sepsis Qualifier/Stage: SEPSIS RISK Duration or Total Time Spent w: 22 Vitals & review Data Vital Sign - Last 24 Hours 03/25/21 03/25/21 03/25/21 03/25/21 08:43 08:43 08:45 09:43 Temp 98.6 Resp 19 B/P (MAP) 164/96 164/96 164/96 Laboratory Tests Test 03/23/21 14:24 03/23/21 14:31 03/23/21 14:43 03/24/21 04:51 White Blood Count 9.0 10^3/uL 8.1 10^3/uL Red Blood Count 5.13 10^6/uL 5.06 10^6/uL Hemoglobin 14.3 g/dL 14.4 g/dL Hematocrit 46.1 % 44.3 % Mean Corpuscular Volume 89.9 fL 87.5 fL Mean Corpuscular Hemoglobin 27.9 pg 28.5 pg Mean Corpuscular Hemoglobin Concent 31.0 g/dL 32.5 g/dL Red Cell Distribution Width 13.2 % 12.9 % Platelet Count 166 10^3/uL 171 10^3/uL Mean Platelet Volume 11.1 fL 11.3 fL Neutrophils (%) (Auto) 86.4 % 87.7 % Lymphocytes (%) (Auto) 5.3 % 7.5 % Monocytes (%) (Auto) 6.4 % 4.5 % Neutrophils # (Auto) 7.8 10^3/uL 7.1 10^3/uL Lymphocytes # (Auto) 0.48 10^3/uL1 0.61 10^3/uL1 Monocytes # (Auto) 0.6 10^3/uL 0.4 10^3/uL Absolute Immature Granulocyte (auto 0.07 10^3 u/L 0.09 10^3 u/L Absolute Eosinophils (auto) 0.1 10^3/uL 0.0 10^3/uL Immature Granulocytes % 0.80 % 1.10 % Eosinophils % 1.0 % 0.1 % Basophils % 0.1 % 0.2 % Basophils # 0.0 10^3/uL 0.0 10^3/uL D-Dimer 0.50 mg/L Sodium Level 132 mmol/L 135 mmol/L Potassium Level 4.3 mmol/L 4.3 mmol/L Chloride Level 99.0 mmol/L 98.0 mmol/L Carbon Dioxide Level 26.4 mmol/L 24.0 mmol/L Anion Gap 10.9 17.3 Blood Urea Nitrogen 14 mg/dL 13 mg/dL Creatinine 0.80 mg/dL 0.73 mg/dL Estimated GFR () 125.9 140.0 Est GFR (CKD-EPI)(Non-Afr [place]e) 104.1 115.7 BUN/Creatinine Ratio 17.0 17.0 Glucose Level 165 mg/dL 181 mg/dL Calcium Level 9.0 mg/dL 9.1 mg/dL Ferritin 1383 ng/mL Total Bilirubin 0.9 mg/dL Aspartate Amino Transf (AST/SGOT) 54 U/L Alanine Aminotransferase (ALT/SGPT) 86 U/L Alkaline Phosphatase 110 U/L Troponin I High Sensitivity 6 ng/L Pro-B-Type Natriuretic Peptide 34 pg/mL Total Protein 7.7 g/dL Albumin 2.9 g/dL Globulin 4.8 Albumin/Globulin Ratio 0.604 Differential Total Cells Counted 100 #CELLS Segmented Neutrophils 85 % Lymphocytes 11 % Monocytes 4 % Platelet Estimate ADEQUATE Platelet Morphology NORMAL Blood Gas Sample Site RT BRACIAL ARTERY Blood Gas pH 7.547 Blood Gas PCO2 29.2 mmHg Blood Gas PO2 56.9 mmHg Blood Gas HCO3 24.8 mmol/L Blood Gas Base Excess 3.4 mmol/L Hemanth Test N/A Arterial Blood Oxygen Saturation 91.2 % Deoxyhemoglobin 8.7 % Carboxyhemoglobin 0.8 % Methemoglobin 0.1 % Total Hemoglobin 14.7 % Total Oxygen Concentration 18.7 % Blood Gas Temperature 37 Oxygen Delivery Method (LAB) NASAL CANNULA FiO2 28 % Total Carbon Dioxide 25.7 mmol/L C-Reactive Protein 26.11 mg/dL Test 03/24/21 11:37 03/24/21 16:36 03/24/21 20:54 03/25/21 00:11 Bedside Glucose 244 251 301 252 Test 03/25/21 06:18 03/25/21 06:35 03/25/21 07:37 Bedside Glucose 147 White Blood Count 9.5 10^3/uL Red Blood Count 5.25 10^6/uL Hemoglobin 14.9 g/dL Hematocrit 46.5 % Mean Corpuscular Volume 88.6 fL Mean Corpuscular Hemoglobin 28.4 pg Mean Corpuscular Hemoglobin Concent 32.0 g/dL Red Cell Distribution Width 12.9 % Platelet Count 215 10^3/uL Mean Platelet Volume 11.4 fL Neutrophils (%) (Auto) 81.6 % Lymphocytes (%) (Auto) 9.8 % Monocytes (%) (Auto) 8.3 % Neutrophils # (Auto) 7.8 10^3/uL Lymphocytes # (Auto) 0.93 10^3/uL1 Monocytes # (Auto) 0.8 10^3/uL Absolute Immature Granulocyte (auto 0.13 10^3 u/L Absolute Eosinophils (auto) 0.0 10^3/uL Immature Granulocytes % 1.40 % Eosinophils % 0.0 % Basophils % 0.3 % Basophils # 0.0 10^3/uL Sodium Level 132 mmol/L Potassium Level 4.2 mmol/L Chloride Level 99.0 mmol/L Carbon Dioxide Level 23.2 mmol/L Glucose Level 147 mg/dL Blood Urea Nitrogen 20 mg/dL Creatinine 0.66 mg/dL Calcium Level 9.4 mg/dL Anion Gap 14.0 Estimated GFR () 157.2 Est GFR (CKD-EPI)(Non-Afr [place]e) 129.9 BUN/Creatinine Ratio 30.0 Differential Total Cells Counted 100 #CELLS Segmented Neutrophils 77 % Band Neutrophils 1 % Lymphocytes 12 % Monocytes 9 % Atypical Lymphocytes 1 % Platelet Estimate ADEQUATE Platelet Morphology NORMAL Blood Morphology Comment NORMAL MORPHOLOGY Current Medications Medications (Trade) Dose Ordered Sig/Sisi PRN Reason Start Time Stop Time Status Last Admin Ascorbic Acid (Vitamin C) 500 mg BID 03/23/21 21:00 04/22/21 20:59 03/25/21 08:42 Aspirin (Aspirin) 81 mg DAILY 03/24/21 09:00 04/23/21 08:59 03/25/21 08:42 Azithromycin (Zithromax) 250 mg DAILY 03/24/21 09:00 04/23/21 08:59 03/25/21 08:43 Enoxaparin Sodium (Lovenox) 40 mg Q24HRS 03/23/21 21:00 04/22/21 20:59 03/24/21 20:56 Furosemide (Lasix) 20 mg DAILY 03/24/21 09:00 04/23/21 08:59 03/25/21 08:45 Gabapentin (Neurontin) 600 mg BID 03/24/21 15:00 04/23/21 14:59 03/25/21 08:43 Glimepiride (Amaryl) 4 mg BID 03/24/21 21:00 04/23/21 20:59 03/25/21 08:46 Hydralazine HCl (Apresoline) 10 mg Q4HR PRN HYPERTENSION 03/25/21 00:00 04/24/21 00:00 03/25/21 00:21 Hydrochlorothiazide (Hydrochlorothiazide) 12.5 mg DAILY 03/25/21 09:00 04/24/21 08:59 03/25/21 08:43 Insulin Glargine (Lantus) 25 unit DAILY 03/24/21 09:00 04/23/21 08:59 03/24/21 09:45 Insulin Human Lispro (Humalog) TIDM 03/23/21 21:00 04/22/21 20:59 03/24/21 17:42 Lisinopril (Zestril) 10 mg DAILY 03/25/21 09:00 04/24/21 08:59 03/25/21 08:43 Melatonin (Melatonin) 3 mg HS PRN INSOMNIA 03/25/21 00:00 04/24/21 00:00 Metformin HCl (Glucophage) 1,000 mg BID 03/24/21 21:00 04/23/21 20:59 03/25/21 08:42 Remdesivir 100 mg/ Sodium Chloride 120 ml @ 120 mls/hr HS 03/24/21 21:00 03/27/21 21:59 03/24/21 20:49 Zinc Sulfate (Zinc Sulfate) 220 mg DAILY 03/24/21 09:00 04/23/21 08:59 03/25/21 08:46 Sepsis Infection Criteria Pres: None LEVEL 1 SEPSIS INFECTION CRITE: Cough/Shortness of Breath LEVEL 2-SIRS (LIST ALL THAT AP: None/Not assessed Cardiovascular Evidence: Not Assessed or None Hematologic Evidence: None/Not assessed Hepatic Evidence: None/Not assessed Metabolic Evidence: None/Not assessed Neurological Evidence: None/Not assessed Respiratory Evidence: Acute Resp failure, Need for O2 to keep>90%, O2 SAT<90room air Renal Evidence: None/Not assessed O2 Sat by Pulse Oximetry: 94 Oxygen Flow Rate: 30.00 Assessment/Plan Assessment/Plan Assessment/Plan COVID-19 infection pneumonia Acute hypoxic respiratory failure Obesity Placing patient at risk of prolonging management and treatment. Diabetes mellitus type 2 continue home medications Continue with remdesivir Steroid therapy dexamethasone 6 mg daily Zinc sulfate to 20 mg daily Ascorbic acid 500 mg twice daily Aspirin Anticoagulation with Lovenox 40 mg subcutaneous daily, SCDs Oxygen therapy continue to maintain oxygenation above 92% wean as tolerated FULL CODE KANDY ROONEY MD Mar 27, 2021 16:53
--- NOTE | 2021-03-27 18:37 | DIREP ---
PROCEDURE:CHEST 1 VIEW COMPARISON:[facility], CR, XRAY CHEST SINGLE VW, 03/23/2021, 02:[address] [facility], CR, XRAY CHEST SINGLE VW, 03/20/2021, 04:11 PM. INDICATIONS:Pneumonia FINDINGS: LUNGS/PLEURA:Patchy multi lobar airspace disease, slightly worsened from prior exam VASCULATURE:Normal. Unremarkable pulmonary vasculature. CARDIAC:Normal. No cardiac silhouette abnormality or cardiomegaly. MEDIASTINUM:Normal. No visible mass or adenopathy. BONES:Normal. No fracture or visible bony lesion. OTHER:Negative. CONCLUSION:Worsening multi lobar airspace disease Dictated by: Ismael Pearson DO on 03/27/2021 at 06:35 PM
[2021-03-27 19:31] VITALS: BP 119/67
[2021-03-27] MEDS: REMDESIVIR (EUA) 100 MG in NS 100ML 100 ML IV SCH (21:02)
[2021-03-27] MEDS: LOVENOX SQ SCH (21:02)
[2021-03-27 23:26] VITALS: BP 124/64
[2021-03-28] MEDS: COMBIVENT RESPIMAT 20-100 MCG IH SCH ×3 (02:31→20:40)
[2021-03-28 04:19] VITALS: BP 124/81
[2021-03-28 06:32] LABS: BASOPHIL % 0.1 % (0.0-0.2); EOSINOPHIL # 0.1 10^3/uL (0.0-0.2); EOSINOPHIL % 1.2 % (0.0-5.0); LYMPHOCYTES # 1.89 10^3/uL1 (1.0-4.8); LYMPHOCYTES % 15.6 % (24.0-44.0); MEAN CORP HGB 28.1 pg (26-34); MONOCYTES % 8.5 % (5.0-12.0); NEUTROPHIL # 9.1 10^3/uL (1.8-7.7); NEUTROPHILS % 74.6 % (41.0-85.0); PLATELET COUNT 285 10^3/uL (150-400); RED CELL DISTRIBUTION WIDTH 13.1 % (11.5-14.5)
[2021-03-28 06:48] LABS: CARBON DIOXIDE 27.7 mmol/L (20.0-32)
[2021-03-28] MEDS: HUMALOG SQ SCH ×4 (07:30→20:56)
[2021-03-28 08:11] VITALS: BP 134/89
[2021-03-28] MEDS: LANTUS SQ SCH (08:15)
[2021-03-28] MEDS: ZINC SULFATE PO SCH (08:23)
[2021-03-28] MEDS: ZITHROMAX PO SCH (08:23)
[2021-03-28] MEDS: ZESTRIL PO SCH (08:24)
[2021-03-28] MEDS: AMARYL PO SCH ×2 (08:24→21:27)
[2021-03-28] MEDS: ASPIRIN PO SCH (08:24)
[2021-03-28] MEDS: GLUCOPHAGE PO SCH ×2 (08:24→21:26)
[2021-03-28] MEDS: NEURONTIN PO SCH ×2 (08:25→21:26)
[2021-03-28] MEDS: VITAMIN C PO SCH ×2 (08:25→21:27)
[2021-03-28] MEDS: HYDROCHLOROTHIAZIDE PO SCH (08:25)
[2021-03-28] MEDS: LASIX IV SCH (08:30)
[2021-03-28] MEDS: DEXAMETHASONE 10 MG/ML VIAL IV SCH (08:30)
[2021-03-28 12:31] VITALS: BP 99/58
--- NOTE | 2021-03-28 16:30 | PRM.PN ---
Subjective Subjective Date: Mar 28, 2021 Time: 16:29 Subjective Able to decrease oxygen level on comfort flow today. He has finished his course of remdesivir. States he is using his incentive spirometer. Sitting up in recliner asked about expected course and we discussed working on weaning him to a lower level of oxygen so he can be discharged home Patient History: FH: cancer G8 SISTER Hypertension No Family History of: Alzheimer's disease Asthma Cerebrovascular disorder Chronic obstructive pulmonary disease Congestive heart failure Diabetes insipidus Diabetes mellitus Parkinson's disease VTE VTE Risk Total Score: 4 VTE Risk Score VTE Risk: Score 0-1 = Low Risk (Aggressive mobilization; early ambulation; no VTE prophylaxis required) Score 2: Moderate Risk (Intermittent/Pneumatic Compression Device OR Lovenox/Heparin/Coumadin) Score 3-4: High Risk (Intermittent/Pneumatic Compression Device AND Lovenox/Heparin/Coumadin) Score > or =5: Highest Risk (Intermittent/Pneumatic Compression Device AND Lovenox/Heparin/Coumadin) Antico:Hep/LMWH/Coum/Xarelto: Yes Mechanical device ordered: Yes Review of Systems Constitutional: Chills, Weakness, Malaise Eyes: No: Pain, Vision change, Conjunctivae inflammation, Eyelid inflammation, Other, Redness ENT: Throat pain; No: Ear pain, Ear discharge, Nose pain, Nose discharge, Nose congestion, Mouth pain, Mouth swelling, Throat swelling, Other Respiratory: Cough, Shortness of breath, SOB with excertion Cardiovascular: No: Chest Pain, Palpitations, Orthopnea, Paroxysmal Noc. Dyspnea, Edema, Lt Headedness, Other Gastrointestinal: No: Nausea, Vomiting, Abdominal Pain, Diarrhea, Constipation, Melena, Hematochezia, Other Genitourinary: No Dysuria, No Frequency, No Incontinence, No Hematuria, No Retention, No Other Musculoskeletal: No: other, neck pain, shoulder pain, arm pain, back pain, hand pain, leg pain, foot pain Skin: No: Rash, Lesions, Jaundice, Bruising, Other Neurological: No: Weakness, Numbness, Incoordination, Change in speech, Confusion, Seizures, Other Allergies: Coded Allergies: No Known Allergies (Unverified , 04/03/16) Scheduled Gabapentin (Gabapentin), 600 MG PO BID, (Reported) Glimepiride (Glimepiride), 1 TAB PO BID, (Reported) Lisinopril/Hydrochlorothiazide (Lisinopril-Hctz 10-12.5 Mg Tab), 1 TAB PO DAILY, (Reported) Metformin Hcl (Metformin Hcl), 1 TAB PO BID, (Reported) Phentermine Hcl (Phentermine Hcl), 37.5 MG PO DAILY24, (Reported) Discontinued Medications Empagliflozin/Metformin HCl (Synjardy 12.5-1,000 mg Tablet), 1 EACH PO DAILY24, (Reported) Discontinued Reason: Discontinue Objective Vitals and I/O Vital Sign - Last 24 Hours 03/28/21 03/28/21 03/28/21 03/28/21 07:50 07:50 08:11 08:24 Temp 98.2 Pulse 95 95 103 Resp 20 20 18 B/P (MAP) 134/89 (104) 134/89 Pulse Ox 92 92 92 O2 Delivery Comfort [place] O2 Flow Rate 30.00 FiO2 70 03/28/21 03/28/21 03/28/21 03/28/21 08:25 08:30 11:30 12:31 Temp 97.6 Pulse 68 96 Resp 20 18 B/P (MAP) 134/89 134/89 99/58 (72) Pulse Ox 98 93 O2 Flow Rate 60.00 FiO2 100 General: Alert, Oriented X3, Cooperative, Other (on comfort flow oxygen) HEENT: Atraumatic, PERRLA, EOMI Neck: Supple Lungs: Other (Decreased bilateral lung sounds) Heart: Regular rate, Normal S1, Normal S2, No murmurs Abdomen: Normal bowel sounds, Soft, No tenderness Extremities: No clubbing, No cyanosis, No edema Skin: No breakdown Neuro: Normal gait, Normal speech, Strength at 5/5 X4 ext, Normal tone Psych/Mental Status: Mental status NL, Mood NL All Results(Lab/Rad) Laboratory Tests Test 03/24/21 11:37 03/24/21 16:36 03/24/21 20:54 03/25/21 00:11 Bedside Glucose 244 251 301 252 Test 03/25/21 06:18 03/25/21 06:35 03/25/21 07:37 Bedside Glucose 147 White Blood Count 9.5 10^3/uL Red Blood Count 5.25 10^6/uL Hemoglobin 14.9 g/dL Hematocrit 46.5 % Mean Corpuscular Volume 88.6 fL Mean Corpuscular Hemoglobin 28.4 pg Mean Corpuscular Hemoglobin Concent 32.0 g/dL Red Cell Distribution Width 12.9 % Platelet Count 215 10^3/uL Mean Platelet Volume 11.4 fL Neutrophils (%) (Auto) 81.6 % Lymphocytes (%) (Auto) 9.8 % Monocytes (%) (Auto) 8.3 % Neutrophils # (Auto) 7.8 10^3/uL Lymphocytes # (Auto) 0.93 10^3/uL1 Monocytes # (Auto) 0.8 10^3/uL Absolute Immature Granulocyte (auto 0.13 10^3 u/L Absolute Eosinophils (auto) 0.0 10^3/uL Immature Granulocytes % 1.40 % Eosinophils % 0.0 % Basophils % 0.3 % Basophils # 0.0 10^3/uL Sodium Level 132 mmol/L Potassium Level 4.2 mmol/L Chloride Level 99.0 mmol/L Carbon Dioxide Level 23.2 mmol/L Glucose Level 147 mg/dL Blood Urea Nitrogen 20 mg/dL Creatinine 0.66 mg/dL Calcium Level 9.4 mg/dL Anion Gap 14.0 Estimated GFR () 157.2 Est GFR (CKD-EPI)(Non-Afr Welsh) 129.9 BUN/Creatinine Ratio 30.0 Differential Total Cells Counted 100 #CELLS Segmented Neutrophils 77 % Band Neutrophils 1 % Lymphocytes 12 % Monocytes 9 % Atypical Lymphocytes 1 % Platelet Estimate ADEQUATE Platelet Morphology NORMAL Blood Morphology Comment NORMAL MORPHOLOGY Current Medications Medications (Trade) Dose Ordered Sig/Sisi Route PRN Reason Start Time Stop Time Status Last Admin Dose Admin Remdesivir 200 mg/ Sodium Chloride 140 ml @ 120.69 mls/ hr OT IV 03/23/21 21:00 03/24/21 18:28 DC 03/23/21 23:09 Insulin Human Lispro (Humalog) TIDM SQ 03/23/21 21:00 04/22/21 20:59 03/24/21 17:42 Ascorbic Acid (Vitamin C) 500 mg BID PO 03/23/21 21:00 04/22/21 20:59 03/25/21 08:42 Zinc Sulfate (Zinc Sulfate) 220 mg DAILY PO 03/24/21 09:00 04/23/21 08:59 03/25/21 08:46 Azithromycin (Zithromax) 250 mg DAILY PO 03/24/21 09:00 2/13/22 08:59 03/25/21 08:43 Enoxaparin Sodium (Lovenox) 40 mg Q24HRS SQ 03/23/21 21:00 04/22/21 20:59 03/24/21 20:56 Aspirin (Aspirin) 81 mg DAILY PO 03/24/21 09:00 04/23/21 08:59 03/25/21 08:42 Furosemide (Lasix) 20 mg DAILY IV 03/24/21 09:00 04/23/21 08:59 03/25/21 08:45 Insulin Glargine (Lantus) 25 unit DAILY SQ 03/24/21 09:00 04/23/21 08:59 03/24/21 09:45 Sodium Chloride 100 ml @ ud STK-MED ONCE IV 03/23/21 22:46 03/23/21 22:47 DC Sodium Chloride 100 ml @ ud STK-MED ONCE IV 03/23/21 22:50 03/23/21 22:50 DC Remdesivir 100 mg/ Sodium Chloride 120 ml @ 120 mls/hr HS IV 03/24/21 21:00 03/27/21 21:59 03/24/21 20:49 Gabapentin (Neurontin) 600 mg BID PO 03/24/21 11:30 03/24/21 12:34 DC 03/24/21 12:03 Gabapentin (Neurontin) 300 mg STK-MED ONCE .ROUTE 03/24/21 11:58 03/24/21 11:59 DC Gabapentin (Neurontin) 600 mg BID PO 03/24/21 15:00 04/23/21 14:59 03/25/21 08:43 Metformin HCl (Glucophage Xr) 1,000 mg BIDM PO 03/24/21 17:00 03/24/21 15:21 DC Lisinopril (Zestril) 10 mg DAILY PO 03/25/21 09:00 04/24/21 08:59 03/25/21 08:43 Hydrochlorothiazide (Hydrochlorothiazide) 12.5 mg DAILY PO 03/25/21 09:00 04/24/21 08:59 03/25/21 08:43 Glimepiride (Amaryl) 4 mg BID PO 03/24/21 14:00 03/24/21 16:12 DC Metformin HCl (Glucophage) 1,000 mg BID PO 03/24/21 21:00 04/23/21 20:59 03/25/21 08:42 Glimepiride (Amaryl) 4 mg BID PO 03/24/21 21:00 04/23/21 20:59 03/25/21 08:46 Sodium Chloride 250 ml @ ud STK-MED ONCE .ROUTE 03/24/21 20:35 03/24/21 20:35 DC Melatonin (Melatonin) 3 mg HS PRN PO INSOMNIA 03/25/21 00:00 04/24/21 00:00 Hydralazine HCl (Apresoline) 10 mg Q4HR PRN IV HYPERTENSION 03/25/21 00:00 04/24/21 00:00 03/25/21 00:21 Lanolin (Lanolin Hydrous) 28 gm STK-MED ONCE TP 03/25/21 09:53 03/25/21 09:53 DC Course Sepsis Screening Results: Posi: POSITIVE Sepsis Qualifier/Stage: SEPSIS RISK Duration or Total Time Spent w: 22 Vitals & review Data Vital Sign - Last 24 Hours 03/25/21 03/25/21 03/25/21 03/25/21 08:43 08:43 08:45 09:43 Temp 98.6 Resp 19 B/P (MAP) 164/96 164/96 164/96 Laboratory Tests Test 03/23/21 14:24 03/23/21 14:31 03/23/21 14:43 03/24/21 04:51 White Blood Count 9.0 10^3/uL 8.1 10^3/uL Red Blood Count 5.13 10^6/uL 5.06 10^6/uL Hemoglobin 14.3 g/dL 14.4 g/dL Hematocrit 46.1 % 44.3 % Mean Corpuscular Volume 89.9 fL 87.5 fL Mean Corpuscular Hemoglobin 27.9 pg 28.5 pg Mean Corpuscular Hemoglobin Concent 31.0 g/dL 32.5 g/dL Red Cell Distribution Width 13.2 % 12.9 % Platelet Count 166 10^3/uL 171 10^3/uL Mean Platelet Volume 11.1 fL 11.3 fL Neutrophils (%) (Auto) 86.4 % 87.7 % Lymphocytes (%) (Auto) 5.3 % 7.5 % Monocytes (%) (Auto) 6.4 % 4.5 % Neutrophils # (Auto) 7.8 10^3/uL 7.1 10^3/uL Lymphocytes # (Auto) 0.48 10^3/uL1 0.61 10^3/uL1 Monocytes # (Auto) 0.6 10^3/uL 0.4 10^3/uL Absolute Immature Granulocyte (auto 0.07 10^3 u/L 0.09 10^3 u/L Absolute Eosinophils (auto) 0.1 10^3/uL 0.0 10^3/uL Immature Granulocytes % 0.80 % 1.10 % Eosinophils % 1.0 % 0.1 % Basophils % 0.1 % 0.2 % Basophils # 0.0 10^3/uL 0.0 10^3/uL D-Dimer 0.50 mg/L Sodium Level 132 mmol/L 135 mmol/L Potassium Level 4.3 mmol/L 4.3 mmol/L Chloride Level 99.0 mmol/L 98.0 mmol/L Carbon Dioxide Level 26.4 mmol/L 24.0 mmol/L Anion Gap 10.9 17.3 Blood Urea Nitrogen 14 mg/dL 13 mg/dL Creatinine 0.80 mg/dL 0.73 mg/dL Estimated GFR () 125.9 140.0 Est GFR (CKD-EPI)(Non-Afr Welsh) 104.1 115.7 BUN/Creatinine Ratio 17.0 17.0 Glucose Level 165 mg/dL 181 mg/dL Calcium Level 9.0 mg/dL 9.1 mg/dL Ferritin 1383 ng/mL Total Bilirubin 0.9 mg/dL Aspartate Amino Transf (AST/SGOT) 54 U/L Alanine Aminotransferase (ALT/SGPT) 86 U/L Alkaline Phosphatase 110 U/L Troponin I High Sensitivity 6 ng/L Pro-B-Type Natriuretic Peptide 34 pg/mL Total Protein 7.7 g/dL Albumin 2.9 g/dL Globulin 4.8 Albumin/Globulin Ratio 0.604 Differential Total Cells Counted 100 #CELLS Segmented Neutrophils 85 % Lymphocytes 11 % Monocytes 4 % Platelet Estimate ADEQUATE Platelet Morphology NORMAL Blood Gas Sample Site RT BRACIAL ARTERY Blood Gas pH 7.547 Blood Gas PCO2 29.2 mmHg Blood Gas PO2 56.9 mmHg Blood Gas HCO3 24.8 mmol/L Blood Gas Base Excess 3.4 mmol/L Hemanth Test N/A Arterial Blood Oxygen Saturation 91.2 % Deoxyhemoglobin 8.7 % Carboxyhemoglobin 0.8 % Methemoglobin 0.1 % Total Hemoglobin 14.7 % Total Oxygen Concentration 18.7 % Blood Gas Temperature 37 Oxygen Delivery Method (LAB) NASAL CANNULA FiO2 28 % Total Carbon Dioxide 25.7 mmol/L C-Reactive Protein 26.11 mg/dL Test 03/24/21 11:37 03/24/21 16:36 03/24/21 20:54 03/25/21 00:11 Bedside Glucose 244 251 301 252 Test 03/25/21 06:18 03/25/21 06:35 03/25/21 07:37 Bedside Glucose 147 White Blood Count 9.5 10^3/uL Red Blood Count 5.25 10^6/uL Hemoglobin 14.9 g/dL Hematocrit 46.5 % Mean Corpuscular Volume 88.6 fL Mean Corpuscular Hemoglobin 28.4 pg Mean Corpuscular Hemoglobin Concent 32.0 g/dL Red Cell Distribution Width 12.9 % Platelet Count 215 10^3/uL Mean Platelet Volume 11.4 fL Neutrophils (%) (Auto) 81.6 % Lymphocytes (%) (Auto) 9.8 % Monocytes (%) (Auto) 8.3 % Neutrophils # (Auto) 7.8 10^3/uL Lymphocytes # (Auto) 0.93 10^3/uL1 Monocytes # (Auto) 0.8 10^3/uL Absolute Immature Granulocyte (auto 0.13 10^3 u/L Absolute Eosinophils (auto) 0.0 10^3/uL Immature Granulocytes % 1.40 % Eosinophils % 0.0 % Basophils % 0.3 % Basophils # 0.0 10^3/uL Sodium Level 132 mmol/L Potassium Level 4.2 mmol/L Chloride Level 99.0 mmol/L Carbon Dioxide Level 23.2 mmol/L Glucose Level 147 mg/dL Blood Urea Nitrogen 20 mg/dL Creatinine 0.66 mg/dL Calcium Level 9.4 mg/dL Anion Gap 14.0 Estimated GFR () 157.2 Est GFR (CKD-EPI)(Non-Afr Welsh) 129.9 BUN/Creatinine Ratio 30.0 Differential Total Cells Counted 100 #CELLS Segmented Neutrophils 77 % Band Neutrophils 1 % Lymphocytes 12 % Monocytes 9 % Atypical Lymphocytes 1 % Platelet Estimate ADEQUATE Platelet Morphology NORMAL Blood Morphology Comment NORMAL MORPHOLOGY Current Medications Medications (Trade) Dose Ordered Sig/Sisi PRN Reason Start Time Stop Time Status Last Admin Ascorbic Acid (Vitamin C) 500 mg BID 03/23/21 21:00 04/22/21 20:59 03/25/21 08:42 Aspirin (Aspirin) 81 mg DAILY 03/24/21 09:00 04/23/21 08:59 03/25/21 08:42 Azithromycin (Zithromax) 250 mg DAILY 03/24/21 09:00 04/23/21 08:59 03/25/21 08:43 Enoxaparin Sodium (Lovenox) 40 mg Q24HRS 03/23/21 21:00 04/22/21 20:59 03/24/21 20:56 Furosemide (Lasix) 20 mg DAILY 03/24/21 09:00 04/23/21 08:59 03/25/21 08:45 Gabapentin (Neurontin) 600 mg BID 03/24/21 15:00 04/23/21 14:59 03/25/21 08:43 Glimepiride (Amaryl) 4 mg BID 03/24/21 21:00 04/23/21 20:59 03/25/21 08:46 Hydralazine HCl (Apresoline) 10 mg Q4HR PRN HYPERTENSION 03/25/21 00:00 04/24/21 00:00 03/25/21 00:21 Hydrochlorothiazide (Hydrochlorothiazide) 12.5 mg DAILY 03/25/21 09:00 04/24/21 08:59 03/25/21 08:43 Insulin Glargine (Lantus) 25 unit DAILY 03/24/21 09:00 04/23/21 08:59 03/24/21 09:45 Insulin Human Lispro (Humalog) TIDM 03/23/21 21:00 04/22/21 20:59 03/24/21 17:42 Lisinopril (Zestril) 10 mg DAILY 03/25/21 09:00 04/24/21 08:59 03/25/21 08:43 Melatonin (Melatonin) 3 mg HS PRN INSOMNIA 03/25/21 00:00 04/24/21 00:00 Metformin HCl (Glucophage) 1,000 mg BID 03/24/21 21:00 04/23/21 20:59 03/25/21 08:42 Remdesivir 100 mg/ Sodium Chloride 120 ml @ 120 mls/hr HS 03/24/21 21:00 03/27/21 21:59 03/24/21 20:49 Zinc Sulfate (Zinc Sulfate) 220 mg DAILY 03/24/21 09:00 04/23/21 08:59 03/25/21 08:46 Sepsis Infection Criteria Pres: None LEVEL 1 SEPSIS INFECTION CRITE: Cough/Shortness of Breath LEVEL 2-SIRS (LIST ALL THAT AP: None/Not assessed Cardiovascular Evidence: Not Assessed or None Hematologic Evidence: None/Not assessed Hepatic Evidence: None/Not assessed Metabolic Evidence: None/Not assessed Neurological Evidence: None/Not assessed Respiratory Evidence: Acute Resp failure, Need for O2 to keep>90%, O2 SAT<90room air Renal Evidence: None/Not assessed O2 Sat by Pulse Oximetry: 93 Oxygen Flow Rate: 60.00 Assessment/Plan Assessment/Plan Assessment/Plan COVID-19 infection pneumonia Acute hypoxic respiratory failure Diabetes mellitus type 2 continue home medications Completed remdesivir, completing a 6 day course of Azithromycin Steroid therapy dexamethasone 6 mg daily Zinc sulfate to 20 mg daily Ascorbic acid 500 mg twice daily Aspirin Anticoagulation with Lovenox 40 mg subcutaneous daily, SCDs Oxygen therapy continue to maintain oxygenation above 92% wean as tolerated FULL CODE KANDY ROONEY MD Mar 28, 2021 16:29
[2021-03-28 17:41] VITALS: BP 123/83
[2021-03-28 19:26] VITALS: BP 152/82
[2021-03-28] MEDS: MELATONIN PO PRN (21:25)
[2021-03-28] MEDS: LOVENOX SQ SCH (21:25)
[2021-03-29] VITALS: BP 121/82
[2021-03-29 04:00] VITALS: BP 133/65
[2021-03-29] MEDS: COMBIVENT RESPIMAT 20-100 MCG IH SCH ×3 (05:00→20:45)
[2021-03-29 05:27] LABS: BASOPHIL % 0.1 % (0.0-0.2); EOSINOPHIL # 0.2 10^3/uL (0.0-0.2); EOSINOPHIL % 1.5 % (0.0-5.0); LYMPHOCYTES # 2.29 10^3/uL1 (1.0-4.8); LYMPHOCYTES % 14.4 % (24.0-44.0); MEAN CORP HGB 28.5 pg (26-34); MONOCYTES # 1.4 10^3/uL (0.3-0.8); NEUTROPHIL # 11.9 10^3/uL (1.8-7.7); PLATELET COUNT 334 10^3/uL (150-400); RED CELL DISTRIBUTION WIDTH 13.1 % (11.5-14.5)
[2021-03-29 05:55] LABS: CARBON DIOXIDE 24.2 mmol/L (20.0-32)
[2021-03-29] MEDS: HUMALOG SQ SCH ×4 (06:50→20:15)
[2021-03-29] MEDS: LANTUS SQ SCH (08:37)
[2021-03-29] MEDS: ZITHROMAX PO SCH (08:44)
[2021-03-29] MEDS: NEURONTIN PO SCH ×2 (08:44→20:11)
[2021-03-29] MEDS: DEXAMETHASONE 10 MG/ML VIAL IV SCH (08:44)
[2021-03-29] MEDS: LASIX IV SCH (08:45)
[2021-03-29] MEDS: ZINC SULFATE PO SCH (08:46)
[2021-03-29] MEDS: AMARYL PO SCH ×2 (08:46→20:11)
[2021-03-29] MEDS: VITAMIN C PO SCH ×2 (08:46→20:11)
[2021-03-29] MEDS: HYDROCHLOROTHIAZIDE PO SCH (08:46)
[2021-03-29] MEDS: GLUCOPHAGE PO SCH ×2 (08:47→20:11)
[2021-03-29] MEDS: ZESTRIL PO SCH (08:48)
[2021-03-29] MEDS: ASPIRIN PO SCH (09:22)
[2021-03-29 09:52] VITALS: BP 152/84
--- NOTE | 2021-03-29 17:02 | PRM.PN ---
Subjective Subjective Date: Mar 29, 2021 Time: 14:00 Subjective Sitting up in his chair, resting comfortably on high flow, aggressively using his incentive spirometer and Acapella Patient History: FH: cancer G8 SISTER Hypertension No Family History of: Alzheimer's disease Asthma Cerebrovascular disorder Chronic obstructive pulmonary disease Congestive heart failure Diabetes insipidus Diabetes mellitus Parkinson's disease VTE VTE Risk Total Score: 4 VTE Risk Score VTE Risk: Score 0-1 = Low Risk (Aggressive mobilization; early ambulation; no VTE prophylaxis required) Score 2: Moderate Risk (Intermittent/Pneumatic Compression Device OR Lovenox/Heparin/Coumadin) Score 3-4: High Risk (Intermittent/Pneumatic Compression Device AND Lovenox/Heparin/Coumadin) Score > or =5: Highest Risk (Intermittent/Pneumatic Compression Device AND Lovenox/Heparin/Coumadin) Antico:Hep/LMWH/Coum/Xarelto: Yes Mechanical device ordered: Yes Review of Systems Eyes: No: Pain, Vision change, Conjunctivae inflammation, Eyelid inflammation, Other, Redness ENT: Throat pain; No: Ear pain, Ear discharge, Nose pain, Nose discharge, Nose congestion, Mouth pain, Mouth swelling, Throat swelling, Other Respiratory: Cough, Shortness of breath, SOB with excertion Cardiovascular: No: Chest Pain, Palpitations, Orthopnea, Paroxysmal Noc. Dyspnea, Edema, Lt Headedness, Other Gastrointestinal: No: Nausea, Vomiting, Abdominal Pain, Diarrhea, Constipation, Melena, Hematochezia, Other Genitourinary: No Dysuria, No Frequency, No Incontinence, No Hematuria, No Retention, No Other Musculoskeletal: No: other, neck pain, shoulder pain, arm pain, back pain, hand pain, leg pain, foot pain Skin: No: Rash, Lesions, Jaundice, Bruising, Other Neurological: No: Weakness, Numbness, Incoordination, Change in speech, Confusion, Seizures, Other Allergies: Coded Allergies: No Known Allergies (Unverified , 04/03/16) Scheduled Gabapentin (Gabapentin), 600 MG PO BID, (Reported) Glimepiride (Glimepiride), 1 TAB PO BID, (Reported) Lisinopril/Hydrochlorothiazide (Lisinopril-Hctz 10-12.5 Mg Tab), 1 TAB PO DAILY, (Reported) Metformin Hcl (Metformin Hcl), 1 TAB PO BID, (Reported) Phentermine Hcl (Phentermine Hcl), 37.5 MG PO DAILY24, (Reported) Discontinued Medications Empagliflozin/Metformin HCl (Synjardy 12.5-1,000 mg Tablet), 1 EACH PO DAILY24, (Reported) Discontinued Reason: Discontinue Objective Vitals and I/O Vital Sign - Last 24 Hours 03/29/21 03/29/21 03/29/21 03/29/21 08:00 08:10 08:10 08:45 Pulse 74 77 Resp 20 20 B/P (MAP) 133/65 Pulse Ox 94 94 O2 Delivery Comfort Tyrone Comfort Tyrone O2 Flow Rate 25.00 30.00 FiO2 50 03/29/21 03/29/21 03/29/21 03/29/21 08:46 08:48 09:52 13:03 Temp 97.9 97.9 Pulse 95 101 Resp 18 20 B/P (MAP) 133/65 133/65 152/84 (106) Pulse Ox 98 96 03/29/21 03/29/21 03/29/21 03/29/21 14:00 14:00 14:00 15:30 Pulse 103 102 102 Resp 20 20 20 20 Pulse Ox 96 99 99 99 O2 Delivery Comfort Tyrone Comfort Tyrone O2 Flow Rate 20.00 3.00 FiO2 25 32 Intake and Output 03/29/21 07:00 Intake Total 1258 ml Output Total 1950 ml Balance -692 ml General: Alert, Oriented X3, Cooperative, Other (on comfort flow oxygen) HEENT: Atraumatic, PERRLA, EOMI Neck: Supple Lungs: Other (Decreased bilateral lung sounds) Heart: Regular rate, Normal S1, Normal S2, No murmurs Abdomen: Normal bowel sounds, Soft, No tenderness Extremities: No clubbing, No cyanosis, No edema Skin: No breakdown Neuro: Normal gait, Normal speech, Strength at 5/5 X4 ext, Normal tone Psych/Mental Status: Mental status NL, Mood NL All Results(Lab/Rad) Laboratory Tests Test 03/24/21 11:37 03/24/21 16:36 03/24/21 20:54 03/25/21 00:11 Bedside Glucose 244 251 301 252 Test 03/25/21 06:18 03/25/21 06:35 03/25/21 07:37 Bedside Glucose 147 White Blood Count 9.5 10^3/uL Red Blood Count 5.25 10^6/uL Hemoglobin 14.9 g/dL Hematocrit 46.5 % Mean Corpuscular Volume 88.6 fL Mean Corpuscular Hemoglobin 28.4 pg Mean Corpuscular Hemoglobin Concent 32.0 g/dL Red Cell Distribution Width 12.9 % Platelet Count 215 10^3/uL Mean Platelet Volume 11.4 fL Neutrophils (%) (Auto) 81.6 % Lymphocytes (%) (Auto) 9.8 % Monocytes (%) (Auto) 8.3 % Neutrophils # (Auto) 7.8 10^3/uL Lymphocytes # (Auto) 0.93 10^3/uL1 Monocytes # (Auto) 0.8 10^3/uL Absolute Immature Granulocyte (auto 0.13 10^3 u/L Absolute Eosinophils (auto) 0.0 10^3/uL Immature Granulocytes % 1.40 % Eosinophils % 0.0 % Basophils % 0.3 % Basophils # 0.0 10^3/uL Sodium Level 132 mmol/L Potassium Level 4.2 mmol/L Chloride Level 99.0 mmol/L Carbon Dioxide Level 23.2 mmol/L Glucose Level 147 mg/dL Blood Urea Nitrogen 20 mg/dL Creatinine 0.66 mg/dL Calcium Level 9.4 mg/dL Anion Gap 14.0 Estimated GFR () 157.2 Est GFR (CKD-EPI)(Non-Afr Estonian) 129.9 BUN/Creatinine Ratio 30.0 Differential Total Cells Counted 100 #CELLS Segmented Neutrophils 77 % Band Neutrophils 1 % Lymphocytes 12 % Monocytes 9 % Atypical Lymphocytes 1 % Platelet Estimate ADEQUATE Platelet Morphology NORMAL Blood Morphology Comment NORMAL MORPHOLOGY Current Medications Medications (Trade) Dose Ordered Sig/Sisi Route PRN Reason Start Time Stop Time Status Last Admin Dose Admin Remdesivir 200 mg/ Sodium Chloride 140 ml @ 120.69 mls/ hr OT IV 03/23/21 21:00 03/24/21 18:28 DC 03/23/21 23:09 Insulin Human Lispro (Humalog) TIDM SQ 03/23/21 21:00 04/22/21 20:59 03/24/21 17:42 Ascorbic Acid (Vitamin C) 500 mg BID PO 03/23/21 21:00 04/22/21 20:59 03/25/21 08:42 Zinc Sulfate (Zinc Sulfate) 220 mg DAILY PO 03/24/21 09:00 04/23/21 08:59 03/25/21 08:46 Azithromycin (Zithromax) 250 mg DAILY PO 03/24/21 09:00 04/23/21 08:59 03/25/21 08:43 Enoxaparin Sodium (Lovenox) 40 mg Q24HRS SQ 03/23/21 21:00 04/22/21 20:59 03/24/21 20:56 Aspirin (Aspirin) 81 mg DAILY PO 03/24/21 09:00 04/23/21 08:59 03/25/21 08:42 Furosemide (Lasix) 20 mg DAILY IV 03/24/21 09:00 04/23/21 08:59 03/25/21 08:45 Insulin Glargine (Lantus) 25 unit DAILY SQ 03/24/21 09:00 04/23/21 08:59 03/24/21 09:45 Sodium Chloride 100 ml @ ud STK-MED ONCE IV 03/23/21 22:46 03/23/21 22:47 DC Sodium Chloride 100 ml @ ud STK-MED ONCE IV 03/23/21 22:50 03/23/21 22:50 DC Remdesivir 100 mg/ Sodium Chloride 120 ml @ 120 mls/hr HS IV 03/24/21 21:00 03/27/21 21:59 03/24/21 20:49 Gabapentin (Neurontin) 600 mg BID PO 03/24/21 11:30 03/24/21 12:34 DC 03/24/21 12:03 Gabapentin (Neurontin) 300 mg STK-MED ONCE .ROUTE 03/24/21 11:58 03/24/21 11:59 DC Gabapentin (Neurontin) 600 mg BID PO 03/24/21 15:00 04/23/21 14:59 03/25/21 08:43 Metformin HCl (Glucophage Xr) 1,000 mg BIDM PO 03/24/21 17:00 03/24/21 15:21 DC Lisinopril (Zestril) 10 mg DAILY PO 03/25/21 09:00 04/24/21 08:59 03/25/21 08:43 Hydrochlorothiazide (Hydrochlorothiazide) 12.5 mg DAILY PO 03/25/21 09:00 04/24/21 08:59 03/25/21 08:43 Glimepiride (Amaryl) 4 mg BID PO 03/24/21 14:00 03/24/21 16:12 DC Metformin HCl (Glucophage) 1,000 mg BID PO 03/24/21 21:00 04/23/21 20:59 03/25/21 08:42 Glimepiride (Amaryl) 4 mg BID PO 03/24/21 21:00 04/23/21 20:59 03/25/21 08:46 Sodium Chloride 250 ml @ ud STK-MED ONCE .ROUTE 03/24/21 20:35 03/24/21 20:35 DC Melatonin (Melatonin) 3 mg HS PRN PO INSOMNIA 03/25/21 00:00 04/24/21 00:00 Hydralazine HCl (Apresoline) 10 mg Q4HR PRN IV HYPERTENSION 03/25/21 00:00 04/24/21 00:00 03/25/21 00:21 Lanolin (Lanolin Hydrous) 28 gm STK-MED ONCE TP 03/25/21 09:53 03/25/21 09:53 DC Course Sepsis Screening Results: Posi: POSITIVE Sepsis Qualifier/Stage: SEPSIS RISK Duration or Total Time Spent w: 22 Vitals & review Data Vital Sign - Last 24 Hours 03/25/21 03/25/21 03/25/21 03/25/21 08:43 08:43 08:45 09:43 Temp 98.6 Resp 19 B/P (MAP) 164/96 164/96 164/96 Laboratory Tests Test 03/23/21 14:24 03/23/21 14:31 03/23/21 14:43 03/24/21 04:51 White Blood Count 9.0 10^3/uL 8.1 10^3/uL Red Blood Count 5.13 10^6/uL 5.06 10^6/uL Hemoglobin 14.3 g/dL 14.4 g/dL Hematocrit 46.1 % 44.3 % Mean Corpuscular Volume 89.9 fL 87.5 fL Mean Corpuscular Hemoglobin 27.9 pg 28.5 pg Mean Corpuscular Hemoglobin Concent 31.0 g/dL 32.5 g/dL Red Cell Distribution Width 13.2 % 12.9 % Platelet Count 166 10^3/uL 171 10^3/uL Mean Platelet Volume 11.1 fL 11.3 fL Neutrophils (%) (Auto) 86.4 % 87.7 % Lymphocytes (%) (Auto) 5.3 % 7.5 % Monocytes (%) (Auto) 6.4 % 4.5 % Neutrophils # (Auto) 7.8 10^3/uL 7.1 10^3/uL Lymphocytes # (Auto) 0.48 10^3/uL1 0.61 10^3/uL1 Monocytes # (Auto) 0.6 10^3/uL 0.4 10^3/uL Absolute Immature Granulocyte (auto 0.07 10^3 u/L 0.09 10^3 u/L Absolute Eosinophils (auto) 0.1 10^3/uL 0.0 10^3/uL Immature Granulocytes % 0.80 % 1.10 % Eosinophils % 1.0 % 0.1 % Basophils % 0.1 % 0.2 % Basophils # 0.0 10^3/uL 0.0 10^3/uL D-Dimer 0.50 mg/L Sodium Level 132 mmol/L 135 mmol/L Potassium Level 4.3 mmol/L 4.3 mmol/L Chloride Level 99.0 mmol/L 98.0 mmol/L Carbon Dioxide Level 26.4 mmol/L 24.0 mmol/L Anion Gap 10.9 17.3 Blood Urea Nitrogen 14 mg/dL 13 mg/dL Creatinine 0.80 mg/dL 0.73 mg/dL Estimated GFR () 125.9 140.0 Est GFR (CKD-EPI)(Non-Afr Estonian) 104.1 115.7 BUN/Creatinine Ratio 17.0 17.0 Glucose Level 165 mg/dL 181 mg/dL Calcium Level 9.0 mg/dL 9.1 mg/dL Ferritin 1383 ng/mL Total Bilirubin 0.9 mg/dL Aspartate Amino Transf (AST/SGOT) 54 U/L Alanine Aminotransferase (ALT/SGPT) 86 U/L Alkaline Phosphatase 110 U/L Troponin I High Sensitivity 6 ng/L Pro-B-Type Natriuretic Peptide 34 pg/mL Total Protein 7.7 g/dL Albumin 2.9 g/dL Globulin 4.8 Albumin/Globulin Ratio 0.604 Differential Total Cells Counted 100 #CELLS Segmented Neutrophils 85 % Lymphocytes 11 % Monocytes 4 % Platelet Estimate ADEQUATE Platelet Morphology NORMAL Blood Gas Sample Site RT BRACIAL ARTERY Blood Gas pH 7.547 Blood Gas PCO2 29.2 mmHg Blood Gas PO2 56.9 mmHg Blood Gas HCO3 24.8 mmol/L Blood Gas Base Excess 3.4 mmol/L Hemanth Test N/A Arterial Blood Oxygen Saturation 91.2 % Deoxyhemoglobin 8.7 % Carboxyhemoglobin 0.8 % Methemoglobin 0.1 % Total Hemoglobin 14.7 % Total Oxygen Concentration 18.7 % Blood Gas Temperature 37 Oxygen Delivery Method (LAB) NASAL CANNULA FiO2 28 % Total Carbon Dioxide 25.7 mmol/L C-Reactive Protein 26.11 mg/dL Test 03/24/21 11:37 03/24/21 16:36 03/24/21 20:54 03/25/21 00:11 Bedside Glucose 244 251 301 252 Test 03/25/21 06:18 03/25/21 06:35 03/25/21 07:37 Bedside Glucose 147 White Blood Count 9.5 10^3/uL Red Blood Count 5.25 10^6/uL Hemoglobin 14.9 g/dL Hematocrit 46.5 % Mean Corpuscular Volume 88.6 fL Mean Corpuscular Hemoglobin 28.4 pg Mean Corpuscular Hemoglobin Concent 32.0 g/dL Red Cell Distribution Width 12.9 % Platelet Count 215 10^3/uL Mean Platelet Volume 11.4 fL Neutrophils (%) (Auto) 81.6 % Lymphocytes (%) (Auto) 9.8 % Monocytes (%) (Auto) 8.3 % Neutrophils # (Auto) 7.8 10^3/uL Lymphocytes # (Auto) 0.93 10^3/uL1 Monocytes # (Auto) 0.8 10^3/uL Absolute Immature Granulocyte (auto 0.13 10^3 u/L Absolute Eosinophils (auto) 0.0 10^3/uL Immature Granulocytes % 1.40 % Eosinophils % 0.0 % Basophils % 0.3 % Basophils # 0.0 10^3/uL Sodium Level 132 mmol/L Potassium Level 4.2 mmol/L Chloride Level 99.0 mmol/L Carbon Dioxide Level 23.2 mmol/L Glucose Level 147 mg/dL Blood Urea Nitrogen 20 mg/dL Creatinine 0.66 mg/dL Calcium Level 9.4 mg/dL Anion Gap 14.0 Estimated GFR () 157.2 Est GFR (CKD-EPI)(Non-Afr Estonian) 129.9 BUN/Creatinine Ratio 30.0 Differential Total Cells Counted 100 #CELLS Segmented Neutrophils 77 % Band Neutrophils 1 % Lymphocytes 12 % Monocytes 9 % Atypical Lymphocytes 1 % Platelet Estimate ADEQUATE Platelet Morphology NORMAL Blood Morphology Comment NORMAL MORPHOLOGY Current Medications Medications (Trade) Dose Ordered Sig/Sisi PRN Reason Start Time Stop Time Status Last Admin Ascorbic Acid (Vitamin C) 500 mg BID 03/23/21 21:00 04/22/21 20:59 03/25/21 08:42 Aspirin (Aspirin) 81 mg DAILY 03/24/21 09:00 04/23/21 08:59 03/25/21 08:42 Azithromycin (Zithromax) 250 mg DAILY 03/24/21 09:00 04/23/21 08:59 03/25/21 08:43 Enoxaparin Sodium (Lovenox) 40 mg Q24HRS 03/23/21 21:00 04/22/21 20:59 03/24/21 20:56 Furosemide (Lasix) 20 mg DAILY 03/24/21 09:00 04/23/21 08:59 03/25/21 08:45 Gabapentin (Neurontin) 600 mg BID 03/24/21 15:00 04/23/21 14:59 03/25/21 08:43 Glimepiride (Amaryl) 4 mg BID 03/24/21 21:00 04/23/21 20:59 03/25/21 08:46 Hydralazine HCl (Apresoline) 10 mg Q4HR PRN HYPERTENSION 03/25/21 00:00 04/24/21 00:00 03/25/21 00:21 Hydrochlorothiazide (Hydrochlorothiazide) 12.5 mg DAILY 03/25/21 09:00 04/24/21 08:59 03/25/21 08:43 Insulin Glargine (Lantus) 25 unit DAILY 03/24/21 09:00 04/23/21 08:59 03/24/21 09:45 Insulin Human Lispro (Humalog) TIDM 03/23/21 21:00 04/22/21 20:59 03/24/21 17:42 Lisinopril (Zestril) 10 mg DAILY 03/25/21 09:00 04/24/21 08:59 03/25/21 08:43 Melatonin (Melatonin) 3 mg HS PRN INSOMNIA 03/25/21 00:00 04/24/21 00:00 Metformin HCl (Glucophage) 1,000 mg BID 03/24/21 21:00 04/23/21 20:59 03/25/21 08:42 Remdesivir 100 mg/ Sodium Chloride 120 ml @ 120 mls/hr HS 03/24/21 21:00 03/27/21 21:59 03/24/21 20:49 Zinc Sulfate (Zinc Sulfate) 220 mg DAILY 03/24/21 09:00 04/23/21 08:59 03/25/21 08:46 Sepsis Infection Criteria Pres: None LEVEL 1 SEPSIS INFECTION CRITE: Cough/Shortness of Breath LEVEL 2-SIRS (LIST ALL THAT AP: None/Not assessed Cardiovascular Evidence: Not Assessed or None Hematologic Evidence: None/Not assessed Hepatic Evidence: None/Not assessed Metabolic Evidence: None/Not assessed Neurological Evidence: None/Not assessed Respiratory Evidence: Acute Resp failure, Need for O2 to keep>90%, O2 SAT<90room air Renal Evidence: None/Not assessed O2 Sat by Pulse Oximetry: 99 Oxygen Flow Rate: 3.00 Assessment/Plan Assessment/Plan Assessment/Plan COVID-19 infection pneumonia Acute hypoxic respiratory failure Diabetes mellitus type 2 continue home medications Completed remdesivir, completing a 6 day course of Azithromycin Steroid therapy dexamethasone 6 mg daily Zinc sulfate to 20 mg daily Ascorbic acid 500 mg twice daily Aspirin Anticoagulation with Lovenox 40 mg subcutaneous daily, SCDs Oxygen therapy continue to maintain oxygenation above 92% wean as tolerated FULL CODE Problems: (1) Acute respiratory failure with hypoxia Status: Acute Assessment & Plan: Oxygen requirement slowly following, currently on 37 L high flow nasal cannula, weaning as tolerated; secondary to COVID ICD Code: J96.01 - Acute respiratory failure with hypoxia SNOMED: 44081553, 848312789 (2) COVID Status: Acute Assessment & Plan: Improving with dexamethasone and ceftriaxone, wean oxygen above as tolerated ICD Code: U07.1 - COVID-19 SNOMED: 906153323 (3) Morbid obesity Status: Chronic Assessment & Plan: Negative prognostic indicator for COVID ICD Code: E66.01 - Morbid (severe) obesity due to excess calories SNOMED: 355691422 MICKEY GUNN MD Mar 29, 2021 17:02
[2021-03-29 18:07] VITALS: BP 143/79
[2021-03-29 19:19] VITALS: BP 138/76
[2021-03-29] MEDS: MELATONIN PO PRN (20:11)
[2021-03-29] MEDS: LOVENOX SQ SCH (20:33)
[2021-03-30 00:09] VITALS: BP 121/69
[2021-03-30] MEDS: COMBIVENT RESPIMAT 20-100 MCG IH SCH ×3 (03:20→16:37)
[2021-03-30 04:58] VITALS: BP 139/89
[2021-03-30] MEDS: HUMALOG SQ SCH ×2 (07:30→11:30)
[2021-03-30] MEDS: LANTUS SQ SCH (09:00)
[2021-03-30 09:15] VITALS: BP 143/82
[2021-03-30] MEDS: DEXAMETHASONE 10 MG/ML VIAL IV SCH (09:26)
[2021-03-30] MEDS: LASIX IV SCH (09:26)
[2021-03-30] MEDS: ASPIRIN PO SCH (09:26)
[2021-03-30] MEDS: NEURONTIN PO SCH (09:27)
[2021-03-30] MEDS: GLUCOPHAGE PO SCH (09:27)
[2021-03-30] MEDS: AMARYL PO SCH (09:27)
[2021-03-30] MEDS: HYDROCHLOROTHIAZIDE PO SCH (09:28)
[2021-03-30] MEDS: VITAMIN C PO SCH (09:29)
[2021-03-30] MEDS: ZESTRIL PO SCH (09:30)
[2021-03-30] MEDS: ZINC SULFATE PO SCH (09:30)
--- NOTE | 2021-03-30 10:19 | NUR ---
02 challenage ordered patient stats 92 on 3 l/m sitting in chair patient stats 90 on roomair after 1 minute patient walked on room air to window stats 87 after 1 mintue 84 after two patient placed back on 3 l/m stats returned to 93
--- NOTE | 2021-03-30 10:43 | NUR ---
DISCHARGE PLANNING PER ID MEETING AND REVIEW OF PATIENT'S CHART - PATIENT CURRENTLY [email or web address] WITH SPOUSE AND IND WITH ALL ADL AND [email or web address]. PATIENT REQUIRING [email or web address]. [email or web address] CHALLENGE COMPLETED AND CM FAXED O2 ORDER AND REFERRAL FOR HOME O2 TO [phone]. CM NOTIFIED [email or web address] OF HOME O2 REFERRAL AND FAXED. CYRUS ONEAL, RADIATION CONTROL HEALTH PHYSICIST NURSE TOOK PORTABLE O2 TANK FOR PATIENT'S DISCHARGE.
[2021-03-30] MEDS ORDERED: OCEAN NS PRN (11:30)
[2021-03-30 12:58] VITALS: BP 139/79
[2021-03-30] MEDS ORDERED: DEXA6TAB PO (14:39)
[2021-03-30] MEDS ORDERED: APIX5TAB PO (14:39)
--- NOTE | 2021-03-30 14:40 | PRM.DC ---
Discharge Summary Date of Discharge: Mar 30, 2021 Time of Request to Discharge: 14:39 Reason for Visit: Shortness of breath Hospital Course Patient is a very pleasant 46-year-old general with past medical history significant for hypertension and diabetes who presented with shortness of breath and was found upon laboratory evaluation to have COVID-pneumonia. The patient was placed on steroids, and steadily improved with his oxygen requirement following from high-dose nasal cannula to only 2 L. His consequence, the patient was set up with a home concentrator and discharged home. Patient History: FH: cancer G8 SISTER Hypertension No Family History of: Alzheimer's disease Asthma Cerebrovascular disorder Chronic obstructive pulmonary disease Congestive heart failure Diabetes insipidus Diabetes mellitus Parkinson's disease General: Alert, Oriented X3, Cooperative HEENT: Atraumatic, EOMI Neck: Supple Lungs: Normal air movement Heart: Regular rate, Normal S1, Normal S2, No murmurs Abdomen: Normal bowel sounds Extremities: No clubbing, No cyanosis Skin: No breakdown Neuro: Normal gait, Normal speech Psych/Mental Status: Mental status NL, Mood NL Scheduled Apixaban (Eliquis), 5 MG PO BID Dexamethasone (Dexamethasone), 6 MG PO daily Gabapentin (Gabapentin), 600 MG PO BID, (Reported) Glimepiride (Glimepiride), 1 TAB PO BID, (Reported) Lisinopril/Hydrochlorothiazide (Lisinopril-Hctz 10-12.5 Mg Tab), 1 TAB PO DAILY, (Reported) Metformin Hcl (Metformin Hcl), 1 TAB PO BID, (Reported) Phentermine Hcl (Phentermine Hcl), 37.5 MG PO DAILY24, (Reported) Discontinued Medications Empagliflozin/Metformin HCl (Synjardy 12.5-1,000 mg Tablet), 1 EACH PO DAILY24, (Reported) Discontinued Reason: Discontinue Sepsis Evaluation @ Discharge Vital Sign - Last 24 Hours 03/25/21 03/25/21 03/25/21 03/25/21 08:43 08:43 08:45 09:43 Temp 98.6 Resp 19 B/P (MAP) 164/96 164/96 164/96 Laboratory Tests Test 03/23/21 14:24 03/23/21 14:31 03/23/21 14:43 03/24/21 04:51 White Blood Count 9.0 10^3/uL 8.1 10^3/uL Red Blood Count 5.13 10^6/uL 5.06 10^6/uL Hemoglobin 14.3 g/dL 14.4 g/dL Hematocrit 46.1 % 44.3 % Mean Corpuscular Volume 89.9 fL 87.5 fL Mean Corpuscular Hemoglobin 27.9 pg 28.5 pg Mean Corpuscular Hemoglobin Concent 31.0 g/dL 32.5 g/dL Red Cell Distribution Width 13.2 % 12.9 % Platelet Count 166 10^3/uL 171 10^3/uL Mean Platelet Volume 11.1 fL 11.3 fL Neutrophils (%) (Auto) 86.4 % 87.7 % Lymphocytes (%) (Auto) 5.3 % 7.5 % Monocytes (%) (Auto) 6.4 % 4.5 % Neutrophils # (Auto) 7.8 10^3/uL 7.1 10^3/uL Lymphocytes # (Auto) 0.48 10^3/uL1 0.61 10^3/uL1 Monocytes # (Auto) 0.6 10^3/uL 0.4 10^3/uL Absolute Immature Granulocyte (auto 0.07 10^3 u/L 0.09 10^3 u/L Absolute Eosinophils (auto) 0.1 10^3/uL 0.0 10^3/uL Immature Granulocytes % 0.80 % 1.10 % Eosinophils % 1.0 % 0.1 % Basophils % 0.1 % 0.2 % Basophils # 0.0 10^3/uL 0.0 10^3/uL D-Dimer 0.50 mg/L Sodium Level 132 mmol/L 135 mmol/L Potassium Level 4.3 mmol/L 4.3 mmol/L Chloride Level 99.0 mmol/L 98.0 mmol/L Carbon Dioxide Level 26.4 mmol/L 24.0 mmol/L Anion Gap 10.9 17.3 Blood Urea Nitrogen 14 mg/dL 13 mg/dL Creatinine 0.80 mg/dL 0.73 mg/dL Estimated GFR () 125.9 140.0 Est GFR (CKD-EPI)(Non-Afr Surinamese) 104.1 115.7 BUN/Creatinine Ratio 17.0 17.0 Glucose Level 165 mg/dL 181 mg/dL Calcium Level 9.0 mg/dL 9.1 mg/dL Ferritin 1383 ng/mL Total Bilirubin 0.9 mg/dL Aspartate Amino Transf (AST/SGOT) 54 U/L Alanine Aminotransferase (ALT/SGPT) 86 U/L Alkaline Phosphatase 110 U/L Troponin I High Sensitivity 6 ng/L Pro-B-Type Natriuretic Peptide 34 pg/mL Total Protein 7.7 g/dL Albumin 2.9 g/dL Globulin 4.8 Albumin/Globulin Ratio 0.604 Differential Total Cells Counted 100 #CELLS Segmented Neutrophils 85 % Lymphocytes 11 % Monocytes 4 % Platelet Estimate ADEQUATE Platelet Morphology NORMAL Blood Gas Sample Site RT BRACIAL ARTERY Blood Gas pH 7.547 Blood Gas PCO2 29.2 mmHg Blood Gas PO2 56.9 mmHg Blood Gas HCO3 24.8 mmol/L Blood Gas Base Excess 3.4 mmol/L Hemanth Test N/A Arterial Blood Oxygen Saturation 91.2 % Deoxyhemoglobin 8.7 % Carboxyhemoglobin 0.8 % Methemoglobin 0.1 % Total Hemoglobin 14.7 % Total Oxygen Concentration 18.7 % Blood Gas Temperature 37 Oxygen Delivery Method (LAB) NASAL CANNULA FiO2 28 % Total Carbon Dioxide 25.7 mmol/L C-Reactive Protein 26.11 mg/dL Test 03/24/21 11:37 03/24/21 16:36 03/24/21 20:54 03/25/21 00:11 Bedside Glucose 244 251 301 252 Test 03/25/21 06:18 03/25/21 06:35 03/25/21 07:37 Bedside Glucose 147 White Blood Count 9.5 10^3/uL Red Blood Count 5.25 10^6/uL Hemoglobin 14.9 g/dL Hematocrit 46.5 % Mean Corpuscular Volume 88.6 fL Mean Corpuscular Hemoglobin 28.4 pg Mean Corpuscular Hemoglobin Concent 32.0 g/dL Red Cell Distribution Width 12.9 % Platelet Count 215 10^3/uL Mean Platelet Volume 11.4 fL Neutrophils (%) (Auto) 81.6 % Lymphocytes (%) (Auto) 9.8 % Monocytes (%) (Auto) 8.3 % Neutrophils # (Auto) 7.8 10^3/uL Lymphocytes # (Auto) 0.93 10^3/uL1 Monocytes # (Auto) 0.8 10^3/uL Absolute Immature Granulocyte (auto 0.13 10^3 u/L Absolute Eosinophils (auto) 0.0 10^3/uL Immature Granulocytes % 1.40 % Eosinophils % 0.0 % Basophils % 0.3 % Basophils # 0.0 10^3/uL Sodium Level 132 mmol/L Potassium Level 4.2 mmol/L Chloride Level 99.0 mmol/L Carbon Dioxide Level 23.2 mmol/L Glucose Level 147 mg/dL Blood Urea Nitrogen 20 mg/dL Creatinine 0.66 mg/dL Calcium Level 9.4 mg/dL Anion Gap 14.0 Estimated GFR () 157.2 Est GFR (CKD-EPI)(Non-Afr Surinamese) 129.9 BUN/Creatinine Ratio 30.0 Differential Total Cells Counted 100 #CELLS Segmented Neutrophils 77 % Band Neutrophils 1 % Lymphocytes 12 % Monocytes 9 % Atypical Lymphocytes 1 % Platelet Estimate ADEQUATE Platelet Morphology NORMAL Blood Morphology Comment NORMAL MORPHOLOGY Current Medications Medications (Trade) Dose Ordered Sig/Sisi PRN Reason Start Time Stop Time Status Last Admin Ascorbic Acid (Vitamin C) 500 mg BID 03/23/21 21:00 04/22/21 20:59 03/25/21 08:42 Aspirin (Aspirin) 81 mg DAILY 03/24/21 09:00 04/23/21 08:59 03/25/21 08:42 Azithromycin (Zithromax) 250 mg DAILY 03/24/21 09:00 04/23/21 08:59 03/25/21 08:43 Enoxaparin Sodium (Lovenox) 40 mg Q24HRS 03/23/21 21:00 04/22/21 20:59 03/24/21 20:56 Furosemide (Lasix) 20 mg DAILY 03/24/21 09:00 04/23/21 08:59 03/25/21 08:45 Gabapentin (Neurontin) 600 mg BID 03/24/21 15:00 04/23/21 14:59 03/25/21 08:43 Glimepiride (Amaryl) 4 mg BID 03/24/21 21:00 04/23/21 20:59 03/25/21 08:46 Hydralazine HCl (Apresoline) 10 mg Q4HR PRN HYPERTENSION 03/25/21 00:00 04/24/21 00:00 03/25/21 00:21 Hydrochlorothiazide (Hydrochlorothiazide) 12.5 mg DAILY 03/25/21 09:00 04/24/21 08:59 03/25/21 08:43 Insulin Glargine (Lantus) 25 unit DAILY 03/24/21 09:00 04/23/21 08:59 03/24/21 09:45 Insulin Human Lispro (Humalog) TIDM 03/23/21 21:00 04/22/21 20:59 03/24/21 17:42 Lisinopril (Zestril) 10 mg DAILY 03/25/21 09:00 04/24/21 08:59 03/25/21 08:43 Melatonin (Melatonin) 3 mg HS PRN INSOMNIA 03/25/21 00:00 04/24/21 00:00 Metformin HCl (Glucophage) 1,000 mg BID 03/24/21 21:00 04/23/21 20:59 03/25/21 08:42 Remdesivir 100 mg/ Sodium Chloride 120 ml @ 120 mls/hr HS 03/24/21 21:00 03/27/21 21:59 03/24/21 20:49 Zinc Sulfate (Zinc Sulfate) 220 mg DAILY 03/24/21 09:00 04/23/21 08:59 03/25/21 08:46 Course Sepsis Screening Results: Posi: POSITIVE Sepsis Qualifier/Stage: SEPSIS RISK Duration or Total Time Spent w: 22 Vitals & review Data Vital Sign - Last 24 Hours 03/25/21 03/25/21 03/25/21 03/25/21 08:43 08:43 08:45 09:43 Temp 98.6 Resp 19 B/P (MAP) 164/96 164/96 164/96 Laboratory Tests Test 03/23/21 14:24 03/23/21 14:31 03/23/21 14:43 03/24/21 04:51 White Blood Count 9.0 10^3/uL 8.1 10^3/uL Red Blood Count 5.13 10^6/uL 5.06 10^6/uL Hemoglobin 14.3 g/dL 14.4 g/dL Hematocrit 46.1 % 44.3 % Mean Corpuscular Volume 89.9 fL 87.5 fL Mean Corpuscular Hemoglobin 27.9 pg 28.5 pg Mean Corpuscular Hemoglobin Concent 31.0 g/dL 32.5 g/dL Red Cell Distribution Width 13.2 % 12.9 % Platelet Count 166 10^3/uL 171 10^3/uL Mean Platelet Volume 11.1 fL 11.3 fL Neutrophils (%) (Auto) 86.4 % 87.7 % Lymphocytes (%) (Auto) 5.3 % 7.5 % Monocytes (%) (Auto) 6.4 % 4.5 % Neutrophils # (Auto) 7.8 10^3/uL 7.1 10^3/uL Lymphocytes # (Auto) 0.48 10^3/uL1 0.61 10^3/uL1 Monocytes # (Auto) 0.6 10^3/uL 0.4 10^3/uL Absolute Immature Granulocyte (auto 0.07 10^3 u/L 0.09 10^3 u/L Absolute Eosinophils (auto) 0.1 10^3/uL 0.0 10^3/uL Immature Granulocytes % 0.80 % 1.10 % Eosinophils % 1.0 % 0.1 % Basophils % 0.1 % 0.2 % Basophils # 0.0 10^3/uL 0.0 10^3/uL D-Dimer 0.50 mg/L Sodium Level 132 mmol/L 135 mmol/L Potassium Level 4.3 mmol/L 4.3 mmol/L Chloride Level 99.0 mmol/L 98.0 mmol/L Carbon Dioxide Level 26.4 mmol/L 24.0 mmol/L Anion Gap 10.9 17.3 Blood Urea Nitrogen 14 mg/dL 13 mg/dL Creatinine 0.80 mg/dL 0.73 mg/dL Estimated GFR () 125.9 140.0 Est GFR (CKD-EPI)(Non-Afr Surinamese) 104.1 115.7 BUN/Creatinine Ratio 17.0 17.0 Glucose Level 165 mg/dL 181 mg/dL Calcium Level 9.0 mg/dL 9.1 mg/dL Ferritin 1383 ng/mL Total Bilirubin 0.9 mg/dL Aspartate Amino Transf (AST/SGOT) 54 U/L Alanine Aminotransferase (ALT/SGPT) 86 U/L Alkaline Phosphatase 110 U/L Troponin I High Sensitivity 6 ng/L Pro-B-Type Natriuretic Peptide 34 pg/mL Total Protein 7.7 g/dL Albumin 2.9 g/dL Globulin 4.8 Albumin/Globulin Ratio 0.604 Differential Total Cells Counted 100 #CELLS Segmented Neutrophils 85 % Lymphocytes 11 % Monocytes 4 % Platelet Estimate ADEQUATE Platelet Morphology NORMAL Blood Gas Sample Site RT BRACIAL ARTERY Blood Gas pH 7.547 Blood Gas PCO2 29.2 mmHg Blood Gas PO2 56.9 mmHg Blood Gas HCO3 24.8 mmol/L Blood Gas Base Excess 3.4 mmol/L Hemanth Test N/A Arterial Blood Oxygen Saturation 91.2 % Deoxyhemoglobin 8.7 % Carboxyhemoglobin 0.8 % Methemoglobin 0.1 % Total Hemoglobin 14.7 % Total Oxygen Concentration 18.7 % Blood Gas Temperature 37 Oxygen Delivery Method (LAB) NASAL CANNULA FiO2 28 % Total Carbon Dioxide 25.7 mmol/L C-Reactive Protein 26.11 mg/dL Test 03/24/21 11:37 03/24/21 16:36 03/24/21 20:54 03/25/21 00:11 Bedside Glucose 244 251 301 252 Test 03/25/21 06:18 03/25/21 06:35 03/25/21 07:37 Bedside Glucose 147 White Blood Count 9.5 10^3/uL Red Blood Count 5.25 10^6/uL Hemoglobin 14.9 g/dL Hematocrit 46.5 % Mean Corpuscular Volume 88.6 fL Mean Corpuscular Hemoglobin 28.4 pg Mean Corpuscular Hemoglobin Concent 32.0 g/dL Red Cell Distribution Width 12.9 % Platelet Count 215 10^3/uL Mean Platelet Volume 11.4 fL Neutrophils (%) (Auto) 81.6 % Lymphocytes (%) (Auto) 9.8 % Monocytes (%) (Auto) 8.3 % Neutrophils # (Auto) 7.8 10^3/uL Lymphocytes # (Auto) 0.93 10^3/uL1 Monocytes # (Auto) 0.8 10^3/uL Absolute Immature Granulocyte (auto 0.13 10^3 u/L Absolute Eosinophils (auto) 0.0 10^3/uL Immature Granulocytes % 1.40 % Eosinophils % 0.0 % Basophils % 0.3 % Basophils # 0.0 10^3/uL Sodium Level 132 mmol/L Potassium Level 4.2 mmol/L Chloride Level 99.0 mmol/L Carbon Dioxide Level 23.2 mmol/L Glucose Level 147 mg/dL Blood Urea Nitrogen 20 mg/dL Creatinine 0.66 mg/dL Calcium Level 9.4 mg/dL Anion Gap 14.0 Estimated GFR () 157.2 Est GFR (CKD-EPI)(Non-Afr Surinamese) 129.9 BUN/Creatinine Ratio 30.0 Differential Total Cells Counted 100 #CELLS Segmented Neutrophils 77 % Band Neutrophils 1 % Lymphocytes 12 % Monocytes 9 % Atypical Lymphocytes 1 % Platelet Estimate ADEQUATE Platelet Morphology NORMAL Blood Morphology Comment NORMAL MORPHOLOGY Current Medications Medications (Trade) Dose Ordered Sig/Sisi PRN Reason Start Time Stop Time Status Last Admin Ascorbic Acid (Vitamin C) 500 mg BID 03/23/21 21:00 04/22/21 20:59 03/25/21 08:42 Aspirin (Aspirin) 81 mg DAILY 03/24/21 09:00 04/23/21 08:59 03/25/21 08:42 Azithromycin (Zithromax) 250 mg DAILY 03/24/21 09:00 04/23/21 08:59 03/25/21 08:43 Enoxaparin Sodium (Lovenox) 40 mg Q24HRS 03/23/21 21:00 04/22/21 20:59 03/24/21 20:56 Furosemide (Lasix) 20 mg DAILY 03/24/21 09:00 04/23/21 08:59 03/25/21 08:45 Gabapentin (Neurontin) 600 mg BID 03/24/21 15:00 04/23/21 14:59 03/25/21 08:43 Glimepiride (Amaryl) 4 mg BID 03/24/21 21:00 04/23/21 20:59 03/25/21 08:46 Hydralazine HCl (Apresoline) 10 mg Q4HR PRN HYPERTENSION 03/25/21 00:00 04/24/21 00:00 03/25/21 00:21 Hydrochlorothiazide (Hydrochlorothiazide) 12.5 mg DAILY 03/25/21 09:00 04/24/21 08:59 03/25/21 08:43 Insulin Glargine (Lantus) 25 unit DAILY 03/24/21 09:00 04/23/21 08:59 03/24/21 09:45 Insulin Human Lispro (Humalog) TIDM 03/23/21 21:00 04/22/21 20:59 03/24/21 17:42 Lisinopril (Zestril) 10 mg DAILY 03/25/21 09:00 04/24/21 08:59 03/25/21 08:43 Melatonin (Melatonin) 3 mg HS PRN INSOMNIA 03/25/21 00:00 04/24/21 00:00 Metformin HCl (Glucophage) 1,000 mg BID 03/24/21 21:00 04/23/21 20:59 03/25/21 08:42 Remdesivir 100 mg/ Sodium Chloride 120 ml @ 120 mls/hr HS 03/24/21 21:00 03/27/21 21:59 03/24/21 20:49 Zinc Sulfate (Zinc Sulfate) 220 mg DAILY 03/24/21 09:00 04/23/21 08:59 03/25/21 08:46 Sepsis Infection Criteria Pres: None LEVEL 1 SEPSIS INFECTION CRITE: Cough/Shortness of Breath LEVEL 2-SIRS (LIST ALL THAT AP: None/Not assessed Cardiovascular Evidence: Not Assessed or None Hematologic Evidence: None/Not assessed Hepatic Evidence: None/Not assessed Metabolic Evidence: None/Not assessed Neurological Evidence: None/Not assessed Respiratory Evidence: Need for O2 to keep>90%, O2 SAT<90room air Renal Evidence: None/Not assessed O2 Sat by Pulse Oximetry: 90 Oxygen Flow Rate: 3.00 MICKEY GUNN MD Mar 30, 2021 14:40
[2021-03-30 16:20] VITALS: BP 139/79
--- NOTE | 2021-03-31 13:36 | NUR ---
COLLEEN THIS NURSE WAS TOLD BY [employer] THAT THE PT CALLED YESTERDAY 03/30/2021 WITH CONCERNS OF THE JENKINS OF ELIQUIS THAT THE PT WAS PRESCRIBED, AND COULD NOT AFFORD IT. THIS NURSE ASKED DR. GUNN IF THERE WAS AN ALTERNATIVE, DR. GUNN SAID THAT THE PT COULD TAKE 325MG OF ASPIRIN ONCE DAILY. THIS NURSE CALLED THE PT'S , ESDRAS SOSA, AND LEFT A VOICEMAIL AT THIS TIME ABOUT THE ASPIRIN.
== END 2021-03-30 16:20 | disposition home or self-care (01) | DRG 177 ==
LOC: ER 13:50 → MS 16:11 → EDBEDREQ 16:19 → MS 03-27 09:27
PROVIDERS: ADMIT Student in an Organized Health Care Education/Training Program; ATTEND Family Medicine
PROC: 5A09357 Assistance with Respiratory Ventilation, Less than 24 Consecutive Hours, Continuous Positive Airway Pressure (ICD-10-PCS; principal; 2021-03-23)
PROC: XW033E5 Introduction of Remdesivir Anti-infective into Peripheral Vein, Percutaneous Approach, New Technology Group 5 (ICD-10-PCS; 2021-03-23)
PROC: 5A09357 Assistance with Respiratory Ventilation, Less than 24 Consecutive Hours, Continuous Positive Airway Pressure (ICD-10-PCS; 2021-03-24)
PROC: 5A09357 Assistance with Respiratory Ventilation, Less than 24 Consecutive Hours, Continuous Positive Airway Pressure (ICD-10-PCS; 2021-03-25)
PROC: 5A09357 Assistance with Respiratory Ventilation, Less than 24 Consecutive Hours, Continuous Positive Airway Pressure (ICD-10-PCS; 2021-03-26)
PROC: 5A09357 Assistance with Respiratory Ventilation, Less than 24 Consecutive Hours, Continuous Positive Airway Pressure (ICD-10-PCS; 2021-03-27)
PROC: 5A0935A Assistance with Respiratory Ventilation, Less than 24 Consecutive Hours, High Flow/Velocity Cannula (ICD-10-PCS; 2021-03-27)
PROC: 5A09357 Assistance with Respiratory Ventilation, Less than 24 Consecutive Hours, Continuous Positive Airway Pressure (ICD-10-PCS; 2021-03-28)
PROC: 5A0935A Assistance with Respiratory Ventilation, Less than 24 Consecutive Hours, High Flow/Velocity Cannula (ICD-10-PCS; 2021-03-28)
PROC: 5A0935A Assistance with Respiratory Ventilation, Less than 24 Consecutive Hours, High Flow/Velocity Cannula (ICD-10-PCS; 2021-03-29)
PROC: 5A09357 Assistance with Respiratory Ventilation, Less than 24 Consecutive Hours, Continuous Positive Airway Pressure (ICD-10-PCS; 2021-03-30)
DX: U07.1 COVID-19 (principal); J96.01 Acute respiratory failure with hypoxia; J12.82 Pneumonia due to coronavirus disease 2019; Z68.43 Body mass index [BMI] 50.0-59.9, adult; E11.9 Type 2 diabetes mellitus without complications; E66.01 Morbid (severe) obesity due to excess calories; E78.00 Pure hypercholesterolemia, unspecified; I10 Essential (primary) hypertension; Z79.84 Long term (current) use of oral hypoglycemic drugs; Z79.899 Other long term (current) drug therapy; Z90.49 Acquired absence of other specified parts of digestive tract; Z82.49 Family history of ischemic heart disease and other diseases of the circulatory system
CPT/HCPCS: 36415; 36600; 71045; 80048; 80053; 82728; 82803; 82948; 83880; 84484; 85025; 85379; 86140; 93005; 94660; 99291; G0378; J0360; J1100; J1650; J1815; J1940; J3490; J7050; Q0144

== ENCOUNTER → 2021-12-25 | Outpatient (CLI) | payer BC ==
[~2021-12-25] MED LIST changes: +APIX5TAB PO; +DEXA6TAB PO; +METF10007 PO
--- NOTE | 2021-12-25 10:13 | DIREP ---
PROCEDURE:US ABDOMEN LIMITED (SINGLE ORGAN - QUAD) COMPARISON:[facility], CT, CT ABD/PELVIS W/O, 04/03/2016, 08:21 PM. [facility], US, US ABDOMEN LIMITED(SINGLE ORGAN-QUAD), 04/25/2015, 08:54 AM. INDICATIONS:R10.9 ABD PAIN TECHNIQUE:High resolution sonographic examination was performed of the abdomen. FINDINGS: PANCREAS:The pancreas is partially obscured by bowel gas shadowing. Visualized portions appear unremarkable. LIVER:Enlarged. Increased hepatic echotexture with poor sonographic penetration consistent with hepatic steatosis. There is decreased echotexture adjacent to the gallbladder fossa, consistent with focal fatty sparing. No focal hepatic lesion is identified. Hepatopetal flow in the portal vein. GALLBLADDER:There is sludge present in the dependent portion of the gallbladder. No evidence for stones, gallbladder wall thickening, or pericholecystic fluid. BILIARY:There is no biliary ductal dilatation. RIGHT KIDNEY:Enlarged. No hydronephrosis. OTHER:Negative. No ascites is identified. CBD:0.5 cm GALLBLADDER WALL: 0.1 cm LIVER: 22.9 cm in length. RIGHT KIDNEY: 13.5 x 5.4 x 6.9 cm. CONCLUSION:Gallbladder reveals sludge, no definite stones. Echogenic liver, in keeping with fatty infiltration. Dictated by: CIARRA Physician on 12/25/2021 at 08:54 AM anya
== END | disposition home or self-care (01) ==
LOC: RAD 07:34
PROVIDERS: ATTEND Nurse Practitioner Family
DX: N28.81 Hypertrophy of kidney (principal); K76.0 Fatty (change of) liver, not elsewhere classified; R10.9 Unspecified abdominal pain
CPT/HCPCS: 76705; 93976

== ENCOUNTER 2022-03-12 07:54 | Emergency (ER) | payer BC ==
[~2022-03-12] VITALS: Ht 167.6 cm; Wt 143.3 kg
[2022-03-12 07:58] VITALS: BP 129/96
--- NOTE | 2022-03-12 07:58 | NUR ---
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
--- NOTE | 2022-03-12 08:04 | ER.PDOC ---
General Chief Complaint: Requesting Medical Care Stated Complaint: MALE TRAVEL OUT OF US: No Time seen by MD: 08:00 Source: patient Exam Limitations: no limitations History of Present Illness Initial Comments 46 yo M complains of L CVA/flank pain (more CVA than flank) for a few hours. Remote history of renal stones, more recent history of some kind of gastric/intestinal switching (does not sound like classic valerio-n-y bypass nor sleeve) 02/12/2022. Timing/Duration: 1-3 hours Severity: moderate Allergies: Coded Allergies: No Known Allergies (Unverified , 04/03/16) Home Meds Active Scripts Apixaban (Eliquis) 5 Mg Tablet, 5 MG PO BID for 21 Days, #42 TAB Prov:MICKEY GUNN MD 03/30/21 Dexamethasone (DEXAMETHASONE) 6 Mg Tablet, 6 MG PO daily for 7 Days, #7 TAB Prov:MICKEY GUNN MD 03/30/21 Reported Medications Metformin Hcl (METFORMIN HCL) 1,000 Mg Tablet, 1 TAB PO BID for 30 Days, #60 TAB 5 Refills 03/24/21 Lisinopril/Hydrochlorothiazide (LISINOPRIL-HCTZ 10-12.5 MG TAB) 1 Each Tablet, 1 TAB PO DAILY, #30 TAB 5 Refills 12/17/18 Gabapentin (GABAPENTIN) 600 Mg Tablet, 600 MG PO BID, TAB 12/17/18 Phentermine Hcl (PHENTERMINE HCL) 37.5 Mg Capsule, 37.5 MG PO DAILY24, CAPSULE 09/14/18 Glimepiride (GLIMEPIRIDE) 4 Mg Tablet, 1 TAB PO BID, #180 TAB 1 Refill 12/28/17 Past Medical History Medical History: COPD, diabetes, high cholesterol, hypertension Surgical History: appendectomy, other (recent weight loss surgery) Family History Significant Family History: other (renal stones) Social History Smoking: non-smoker Drug Use: none Reviewed Nursing Reviewed: Vital Signs, Abn. Noted, Nursing Assessment Review of Systems Constitutional: no symptoms reported EENTM: no symptoms reported Respiratory: no symptoms reported Cardiovascular: no symptoms reported Gastrointestinal: diarrhea (or at least looser/paler stools suggestive of steatorrhea) Genitourinary: see HPI Musculoskeletal: back pain (L side) Skin: no symptoms reported Psychiatric/Neurological: no symptoms reported All Other Systems: Reviewed and Negative Physical Exam General Appearance: Mild Distress, Moderate Distress EENT: eyes nml inspection Neck: Full Range of Motion Respiratory: chest non-tender, lungs clear CVS: reg rate & rhythm Gastrointestinal: Normal Bowel Sounds, Non Tender (abdominal wall scars seem to be healing reasonably well) Back: CVA Tenderness (L) Neurologic/Psychiatric: No Motor/Sensory Deficits, Alert, Normal Mood/Affect, Oriented x 3 Skin: Normal Color Results/Orders Results/Orders Orders - MEME MONTOYA MD Cbc With Auto Diff (03/12/22 08:03) Comprehensive Metabolic Panel (03/12/22 08:03) Urinalysis (03/12/22 08:03) Ct Abd/Pelvis Wo Iv Contrast (03/12/22 08:30) Urine Culture (03/12/22 08:02) Ketorolac Tromethamine (Toradol) (03/12/22 09:08) Tamsulosin Hcl (Flomax) (03/12/22 09:09) Ketorolac Tromethamine (Toradol) (03/12/22 09:08) Tamsulosin Hcl (Flomax) (03/12/22 09:08) Vital Signs Date Time Temp Pulse Resp B/P (MAP) Pulse Ox O2 Delivery O2 Flow Rate FiO2 03/12/22 07:58 98.4 83 18 97 03/12/22 07:58 98.4 83 18 129/96 (107) 97 Room Air* 0 21 03/12/22 07:58 98.4 83 18 Administered Medications Medications (Trade) Dose Ordered Sig/Sisi Route PRN Reason Start Time Stop Time Status Last Admin Dose Admin Ketorolac Tromethamine (Toradol) 60 mg STAT STAT IM 03/12/22 09:08 03/12/22 09:10 DC 03/12/22 09:12 60 MG Tamsulosin HCl (Flomax) 0.4 mg STAT STAT PO 03/12/22 09:08 03/12/22 09:10 DC 03/12/22 09:12 0.4 MG Laboratory Tests Test 03/12/22 08:02 03/12/22 09:27 Urine Collection Type RANDOM Urine Color DARK RAUDEL Urine Appearance CLOUDY Urine Bilirubin 3+ (NEGATIVE) H Urine Ictotest NEGATIVE (NEGATIVE) Urine Ketones 4+ (NEGATIVE) H Urine Specific [place] >=1.030 (1.005-1.030) Urine pH 6.0 (4.5-8.0) Urine Protein 2+ (NEGATIVE) H Urine Urobilinogen 1.0 E.U./dL (0.2) Urine Nitrate NEGATIVE (NEGATIVE) Urine Leukocyte Esterase NEGATIVE (NEGATIVE) Urine Glucose (Auto)(UA) NEGATIVE (NEGATIVE) Urine Blood 3+ (NEGATIVE) H Urine RBC TooNumerousToCount RBC/HPF (NONE Urine WBC 0-2 WBC/HPF (0-2) Urine Squamous Epithelial Cells NONE SEEN (<=FEW) Urine Bacteria FEW (NONE SEEN) H White Blood Count 5.8 10^3/uL (4.5-11.0) Red Blood Count 5.42 10^6/uL (4.50-5.90) Hemoglobin 15.1 g/dL (13.9-16.3) Hematocrit 47.0 % (37.0-53.0) Mean Corpuscular Volume 86.7 fL (78-100) Mean Corpuscular Hemoglobin 27.9 pg (26-34) Mean Corpuscular Hemoglobin Concent 32.1 g/dL (33-36.5) L Red Cell Distribution Width 15.2 % (11.5-14.5) H Platelet Count 151 10^3/uL (150-400) Mean Platelet Volume 12.2 fL (7.8-11.0) H Neutrophils (%) (Auto) 69.9 % (41.0-85.0) Lymphocytes (%) (Auto) 18.0 % (24.0-44.0) L Monocytes (%) (Auto) 8.8 % (5.0-12.0) Neutrophils # (Auto) 4.1 10^3/uL (1.8-7.7) Lymphocytes # (Auto) 1.04 10^3/uL1 (1.0-4.8) Monocytes # (Auto) 0.5 10^3/uL (0.3-0.8) Absolute Immature Granulocyte (auto 0.04 10^3 u/L (0-2) Absolute Eosinophils (auto) 0.1 10^3/uL (0.0-0.2) Immature Granulocytes % 0.70 % (0.00-0.50) H Eosinophils % 2.4 % (0.0-5.0) Basophils % 0.2 % (0.0-0.2) Basophils # 0.0 10^3/uL (0.0-0.1) Sodium Level 139 mmol/L (132-145) Potassium Level 3.6 mmol/L (3.6-5.2) Chloride Level 104.0 mmol/L (96-109) Carbon Dioxide Level 20.7 mmol/L (20.0-32) Anion Gap 17.9 Blood Urea Nitrogen 18 mg/dL (7-18) Creatinine 0.87 mg/dL (0.59-1.40) Estimated GFR () 113.8 (>/=60) Est GFR (CKD-EPI)(Non-Afr [place]ian) 94.1 (>/=60) BUN/Creatinine Ratio 20.0 Glucose Level 127 mg/dL (70-110) H Calcium Level 9.3 mg/dL (8.4-10.5) Total Bilirubin 1.0 mg/dL (0.2-1.0) Aspartate Amino Transferase (AST) 40 U/L (0-35) H Alanine Aminotransferase (ALT) 79 U/L (12-78) H Alkaline Phosphatase 87 U/L (50-136) Total Protein 7.1 g/dL (6.4-8.2) Albumin 4.1 g/dL (3.4-5.0) Globulin 3.0 Albumin/Globulin Ratio 1.366 Progress Progress small renal stone, 2 mm, near UVJ. We will treat symptomatically and recommend outpatient f/u. EKG/XRAY/CT/US CT Comments: see report, 2 mm stone ER DEPART Departure Time of Disposition: 09:49 Disposition: 01 HOME / SELF CARE / HOMELESS Impression: Primary Impression: Renal colic on left side Condition: Stable Patient Instructions: Diet for Kidney Stones, Kidney Stones Referrals: RANDY ARAGON [employer] (PCP) PRIMARY CARE PROVIDER Additional Instructions: Medications as directed. Urinate through the mesh/sieve until half a day or so after the pain has passed or you catch the stone, which will be relatively small, and take it to your clinic provider to be sent off for analysis. Get good hydration. Follow up in clinic. Duration or Time Spent with Pa: MEME CERON MD Mar 12, 2022 08:04
[2022-03-12 08:18] LABS: BILIRUBIN,URINE 3+ (NEGATIVE)
--- NOTE | 2022-03-12 09:00 | DIREP ---
PROCEDURE:CT ABDOMEN/PELVIS W/O CONTRAST COMPARISON:[facility], US, US ABDOMEN LIMITED(SINGLE ORGAN-QUAD), 12/25/2021, 07:50 AM. [facility], CT, CT ABD/PELVIS W/O, 04/03/2016, 08:21 PM. INDICATIONS:L flank/CVA pain, hx renal stones, also recent abd bypass, minimal abd pain TECHNIQUE:Axial images were created through the abdomen and pelvis without intravenous contrast material. No oral contrast was administered. Sagittal and coronal reconstructions were performed from source images. FINDINGS: LUNG BASES:Normal. No visible pulmonary or pleural disease. LIVER:Hepatomegaly is again seen with diffuse steatosis of the liver. No focal hepatic lesion is seen. BILIARY:Normal. No visible dilatation or calcification. PANCREAS:Normal. No lesion, fluid collection, ductal dilatation, or atrophy. SPLEEN:Normal. No enlargement or focal lesion. ADRENALS:Normal. No mass or enlargement. URINARY TRACT:Mild left hydronephrosis and left hydroureter are seen secondary to a 2 mm calculus in distal left ureter near the ureterovesical junction. A tiny/punctate nonobstructing right renal calculus is seen in the midpole. AORTA/VASCULAR:Normal. No aneurysm. RETROPERITONEUM:Normal. No mass or adenopathy. BOWEL/MESENTERY:Postsurgical changes are seen with gastric bypass surgery with a small hiatal hernia. No dilated loops of large or small bowel or inflammatory changes are seen. The appendix is not visualized. ABDOMINAL WALL:Normal. No mass or hernia. PELVIC ORGANS:Normal. No visible mass. Pelvic organs appropriate for patient age. BONES:Normal for age. No bony lesion or acute fracture. OTHER:Negative. CONCLUSION: 1. Mild left hydronephrosis and left hydroureter secondary to a 2 mm calculus in the distal left ureter. 2. Hepatomegaly and diffuse steatosis of the liver. Dictated by: Bassam Steele M.D. On 03/12/2022 at 08:53 AM
[2022-03-12] MEDS ORDERED: TORADOL ONE (09:08)
[2022-03-12] MEDS ORDERED: FLOMAX PO STA (09:08)
[2022-03-12] MEDS ORDERED: TORADOL IM STA (09:08)
[2022-03-12] MEDS ORDERED: FLOMAX PO ONE (09:09)
[2022-03-12 09:33] LABS: BASOPHIL % 0.2 % (0.0-0.2); EOSINOPHIL # 0.1 10^3/uL (0.0-0.2); EOSINOPHIL % 2.4 % (0.0-5.0); LYMPHOCYTES # 1.04 10^3/uL1 (1.0-4.8); MEAN CORP HGB 27.9 pg (26-34); MONOCYTES # 0.5 10^3/uL (0.3-0.8); MONOCYTES % 8.8 % (5.0-12.0); NEUTROPHIL # 4.1 10^3/uL (1.8-7.7); NEUTROPHILS % 69.9 % (41.0-85.0); PLATELET COUNT 151 10^3/uL (150-400); RED CELL DISTRIBUTION WIDTH 15.2 % (11.5-14.5)
[2022-03-12 09:47] LABS: CARBON DIOXIDE 20.7 mmol/L (20.0-32)
[2022-03-12 10:11] VITALS: BP 129/96
== END 2022-03-12 10:09 | disposition home or self-care (01) ==
LOC: ER 07:54
DX: N23 Unspecified renal colic (principal); E11.9 Type 2 diabetes mellitus without complications; E78.00 Pure hypercholesterolemia, unspecified; I10 Essential (primary) hypertension; J44.9 Chronic obstructive pulmonary disease, unspecified; Z87.442 Personal history of urinary calculi; Z90.49 Acquired absence of other specified parts of digestive tract
CPT/HCPCS: 99284; 74176; 96372; 87086; 80053; 85025; 36415; 81001; J1885